=== PATIENT | male | born 1955 | race Caucasian/White ===

== ENCOUNTER 2019-01-03 13:29 | Inpatient (IN) | payer BC ==
[~2019-01-03] VITALS: Ht 180.3 cm; Wt 81.8 kg
[~2019-01-03 13:29] MED LIST: DILAUDID4 MG PO; GEMFIBROZIL600 MG PO; PRAVACHOL20 MG PO; ZESTRIL20 MG PO
[2019-01-03 14:09] LABS: BASOPHILS 0.5 % (0-2); EOSINOPHILS 1.9 % (0-7); HEMATOCRIT 43.5 % (42.0-54.0); HEMOGLOBIN 14.7 g/dL (13.5-17.5); IMMATURE GRANULOCYTES 0.8 % (0-5); LYMPHOCYTES 22.5 % (15-50); MCH 28.8 pg (26.0-34.0); MCHC 33.8 g/dL (31.0-37.0); MCV 85.1 fL (80.0-100.0); MEAN PLATELET VOLUME 10.1 fL (7.4-10.4); MONOCYTES 14.1 % (2-11); NEUTROPHILS 60.2 % (40-80); PLATELET COUNT 324 10x3/uL (130-400); RBC 5.11 10x6/uL (4.20-6.10); RDW 13.2 % (11.5-14.5); WBC 12.6 10x3/uL (4.8-10.8)
[2019-01-03 14:20] LABS: APTT 28.5 SECONDS (22.8-39.4); INR 0.99 (0.85-1.17); PROTIME 12.6 SECONDS (11.6-15.0)
[2019-01-03 14:23] LABS: ALBUMIN 3.2 g/dL (3.4-5.0); ALKALINE PHOSPHATASE 79 U/L (46-116); ALT (SGPT) 32 U/L (10-68); BILIRUBIN - TOTAL 0.26 mg/dL (0.2-1.3); CALC OSMOLALITY 278 mosm/kg (275-300); CALCIUM 9.3 mg/dL (8.5-10.1); CARBON DIOXIDE 28.6 mmol/L (21.0-32.0); CHLORIDE - SERUM 103 mmol/L (98-107); CREATININE - SERUM 0.9 mg/dL (0.6-1.3); GLUCOSE 111 mg/dL (74-106); POTASSIUM - SERUM 3.8 mmol/L (3.5-5.1); SODIUM 140 mmol/L (136-145); UREA NITROGEN 9 mg/dL (7-18); eGFR NON AFRICAN AMERICAN > 90 mL/min (90-120)
[2019-01-03 14:34] LABS: CKMB 0.7 U/L (0.0-3.6); CREATINE KINASE 70 UL (21-232); MAGNESIUM - SERUM 2.1 mg/dL (1.8-2.4)
[2019-01-03 14:35] LABS: TROPONIN-I < 0.017 ng/mL (0.000-0.060)
--- NOTE | 2019-01-03 18:49 | NUR ---
RECEIVED TO ROOM 2212 VIA FROM ER. A/O X3. NO C/O PAIN AT THIS TIME. AT BEDSIDE. SKIN INTACT. DENIES NEEDS.
[2019-01-03 21:10] VITALS: BP 135/78; BMI 25.1
[2019-01-03 21:14] VITALS: BP 135/78
[2019-01-03] MEDS ORDERED: LISINOPRIL40 MG PO (21:44)
[2019-01-03] MEDS ORDERED: NIASPAN500 MG PO (21:45)
[2019-01-03] MEDS ORDERED: AREDS PO (22:03)
[2019-01-04 01:15] VITALS: BP 154/74
[2019-01-04 04:55] VITALS: BP 135/77
[2019-01-04 09:38] VITALS: BP 133/77
--- NOTE | 2019-01-04 11:07 | NUR ---
MORNING ASSESSMENT COMPLETE. SEE ASSESSMENT FLOWSSHET FOR FURTHER DETIALS. PT LYING IN BED AAO X4 TO PERSON, PLACE, TIME, AND SITUATION. DENIES NEEDS AT THIS TIME. CL IN REACH. SIDE RAILS UP X3 FOR PT SAFETY. BED IN LOWEST POSITION.
[2019-01-04 11:47] VITALS: Ht 180.3 cm; Wt 81.8 kg
[2019-01-04 13:55] VITALS: BP 126/84
[2019-01-04 17:34] VITALS: BP 139/78
--- NOTE | 2019-01-04 19:30 | NUR ---
ALERT AND ORIENTED. AT BEDSIDE. DOES NOT COMPLAIN OF PAIN OR SHORTNESS OF BREATH. DISCUSSED UPCOMING MEDICATIONS WITH PATIENT. DENIES QUESTIONS OR CONCERNS. PATIENT HAS RIGHT AC THAT IS PATENT AND INFUSING NS @ 125. WEARING TELE MONITOR AND RUNNING SINUS RHYTHM. HAS CALL LIGHT IN HAND.
[2019-01-04 20:00] VITALS: BP 144/86
[2019-01-05 01:08] VITALS: BP 120/68
--- NOTE | 2019-01-05 03:00 | NUR ---
I have reviewed this patient and I concur with the Shift Assessment completed by the Licensed Practical Nurse today this shift.
[2019-01-05 05:21] VITALS: BP 130/86
[2019-01-05 07:09] LABS: BASOPHILS 0.5 % (0-2); EOSINOPHILS 1.6 % (0-7); HEMATOCRIT 41.3 % (42.0-54.0); HEMOGLOBIN 13.7 g/dL (13.5-17.5); IMMATURE GRANULOCYTES 0.5 % (0-5); LYMPHOCYTES 23.7 % (15-50); MCH 28.2 pg (26.0-34.0); MCHC 33.2 g/dL (31.0-37.0); MCV 85.2 fL (80.0-100.0); MEAN PLATELET VOLUME 10.2 fL (7.4-10.4); MONOCYTES 14.6 % (2-11); NEUTROPHILS 59.1 % (40-80); PLATELET COUNT 309 10x3/uL (130-400); RBC 4.85 10x6/uL (4.20-6.10); RDW 13.1 % (11.5-14.5); WBC 12.3 10x3/uL (4.8-10.8)
[2019-01-05 07:11] LABS: CALC OSMOLALITY 276 mosm/kg (275-300); CALCIUM 8.7 mg/dL (8.5-10.1); CARBON DIOXIDE 27.2 mmol/L (21.0-32.0); CHLORIDE - SERUM 106 mmol/L (98-107); CREATININE - SERUM 0.8 mg/dL (0.6-1.3); GLUCOSE 107 mg/dL (74-106); PHOSPHOROUS 2.7 mg/dL (2.5-4.9); POTASSIUM - SERUM 4.2 mmol/L (3.5-5.1); SODIUM 140 mmol/L (136-145); eGFR NON AFRICAN AMERICAN > 90 mL/min (90-120)
[2019-01-05 07:14] LABS: UREA NITROGEN 6 mg/dL (7-18)
--- NOTE | 2019-01-05 07:30 | NUR ---
LYING IN BED,WITHOUT DISTRESS.DENIES NEEDS.CALL LIGHT IN REACH
[2019-01-05] MEDS ORDERED: ELIQUIS5 MG PO ×2 (09:25→09:32)
[2019-01-05 10:30] VITALS: BP 131/90
--- NOTE | 2019-01-05 11:00 | NUR ---
ASSESSMENT PER FLOW SHEET. IV DCD WITH CATH TIP INTACT.DISCHARGE INSTRUCTIONS,STATES UNDERSTANDING.
--- NOTE | 2019-01-05 11:07 | MORECARE ---
CASE MANAGEMENT DISCHARGE SUMMARY PATIENT: KRISTINE ERNANDEZ UNIT: [id number] ADM DATE: 01/03/19 AGE: 63 : 59 SEX: M ROOM/BED: D.2212 AUTHOR: LUBNA,DOC PHYSICIAN: REFERRING PHYSICIAN: TEODORO HIDALGO MD DATE OF SERVICE: 01/05/19 Discharge Plan Patient Name: KRISTINE ERNANDEZ Facility: [facility]:[place] : 1955 Planned Disposition: Home Anticipated Discharge Date: Discharge Date: Expected LOS: Initial Reviewer: [email or web address] Initial Review Date: 01/03/2019 Generated: 01/05/19 12:07 pm Comments DCP- Discharge Planning Updated by [email or web address]: Emi Vides on 01/05/19 10:[address] Patient Name: KRISTINE ERNANDEZ Admission Status: ER Accout number: [id number] Admission Date: 01-03-2019 : 1955 Admission Diagnosis: Attending: TEODORO HIDALGO Current LOS: 2 Anticipated DC Date: Planned Disposition: Home Primary Insurance: [employer] OUT OF STATE Discharge Planning Comments: CM met with patient to complete initial dc planning assessment. CM educated patient on the CM role and verbal consent given by patient to complete assessment. Patient lives at home with his where he is independent with his care. At discharge patient plans to return home and feels this is a safe discharge. CM discussed availability of home health, rehab services, and medical equipment. I have given him a coupon for Eliquis and explained to him how it is used. 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 Patient denied known discharge needs at this time. CM will continue to follow and will assist as needed with dc plans/needs. Claims Sorter: Emi Vides DCPIA - Discharge Planning Initial Assessment Updated by [email or web address]: Emi Vides on 01/05/19 11:02 am * Is the patient Alert and Oriented? Yes * How many steps to enter\exit or inside your home? * PCP ALMONTE * Pharmacy [facility] * Preadmission Environment Home with Family * ADLs Independent * Equipment None * List name and contact numbers for known caregivers / representatives who currently or will assist patient after discharge: VANESSA ERNANDEZ [phone] * Verbal permission to speak to the caregivers and representatives has been obtained from the patient. N/A * Community resources currently utilized None * Additional services required to return to the preadmission environment? No * Can the patient safely return to the preadmission environment? Yes * Has this patient been hospitalized within the prior 30 days at any hospital? No Patient Name: KRISTINE ERNANDEZ Page 59974 at 1107 All edits/amendments must be made on the electronic document DICTATION DATE: 01/05/191106 CHANGE LEAD: KARI 01/05/191106 RPT#: [id number] DC DATE: STATUS: ADM IN [facility] [address] [place] [address] END OF REPORT
--- NOTE | 2019-01-05 12:21 | NUR ---
LEFT UNIT VIA WHEELCHAIR FOR TRANSPORT HOME
--- NOTE | 2019-01-08 08:46 | MORECARE ---
CASE MANAGEMENT DISCHARGE SUMMARY PATIENT: KRISTINE ERNANDEZ UNIT: [id number] ADM DATE: 01/03/19 AGE: 63 : 59 SEX: M ROOM/BED: D.2212 AUTHOR: LUBNA,DOC PHYSICIAN: REFERRING PHYSICIAN: TEODORO HIDALGO MD DATE OF SERVICE: 01/08/19 Discharge Plan Patient Name: KRISTINE ERNANDEZ Facility: [facility]:[place] : 1955 Planned Disposition: Home Anticipated Discharge Date: Discharge Date: 01/05/2019 Expected LOS: Initial Reviewer: [email or web address] Initial Review Date: 01/03/2019 Generated: 01/08/19 9:45 am Comments DCP- Discharge Planning Updated by [email or web address]: Emi Vides on 01/05/19 10:[address] Patient Name: KRISTINE ERNANDEZ Admission Status: ER Accout number: [id number] Admission Date: 01-03-2019 : 1955 Admission Diagnosis: Attending: TEODORO HIDALGO Current LOS: 2 Anticipated DC Date: Planned Disposition: Home Primary Insurance: [employer] OUT OF STATE Discharge Planning Comments: CM met with patient to complete initial dc planning assessment. CM educated patient on the CM role and verbal consent given by patient to complete assessment. Patient lives at home with his where he is independent with his care. At discharge patient plans to return home and feels this is a safe discharge. CM discussed availability of home health, rehab services, and medical equipment. I have given him a coupon for Eliquis and explained to him how it is used. 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 Patient denied known discharge needs at this time. CM will continue to follow and will assist as needed with dc plans/needs. Branch Associate Teller: Emi Vides DCPIA - Discharge Planning Initial Assessment Updated by [email or web address]: Emi Vides on 01/05/19 11:02 am * Is the patient Alert and Oriented? Yes * How many steps to enter\exit or inside your home? * PCP ALMONTE * Pharmacy [facility] * Preadmission Environment Home with Family * ADLs Independent * Equipment None * List name and contact numbers for known caregivers / representatives who currently or will assist patient after discharge: VANESSA ERNANDEZ [phone] * Verbal permission to speak to the caregivers and representatives has been obtained from the patient. N/A * Community resources currently utilized None * Additional services required to return to the preadmission environment? No * Can the patient safely return to the preadmission environment? Yes * Has this patient been hospitalized within the prior 30 days at any hospital? No Last DP export: 01/05/19 10:07 a Patient Name: KRISTINE ERNANDEZ Page [phone] at 0846 All edits/amendments must be made on the electronic document DICTATION DATE: 01/08/19844 WASHING MACHINE LOADER AND PULLER: KARI 01/08/19844 RPT#: [id number] DC DATE:01/05/19 STATUS: DIS IN [facility] [address] [place] [address] END OF REPORT
== END 2019-01-05 12:21 | disposition home health service (06) | DRG 176 ==
LOC: D.ER 13:29 → D.MS 17:50
PROVIDERS: Family Medicine; ADMIT Internal Medicine Nephrology; ATTEND Internal Medicine Nephrology
DX: I26.99 Other pulmonary embolism without acute cor pulmonale (principal); I82.401 Acute embolism and thrombosis of unspecified deep veins of right lower extremity; J98.11 Atelectasis; I10 Essential (primary) hypertension; E78.5 Hyperlipidemia, unspecified; K21.9 Gastro-esophageal reflux disease without esophagitis

== ENCOUNTER 2019-01-27 20:21 | Inpatient (IN) | payer BC ==
[~2019-01-27] VITALS: Ht 180.3 cm; Wt 102.1 kg
[~2019-01-27 20:21] MED LIST changes: +AREDS PO; +ELIQUIS5 MG PO; +LISINOPRIL40 MG PO; +NIASPAN500 MG PO
[2019-01-27] MEDS ORDERED: MIRALAX17 GM PO (20:26)
[2019-01-27 20:42] LABS: BASOPHILS 0.5 % (0-2); EOSINOPHILS 1.5 % (0-7); HEMATOCRIT 44.6 % (42.0-54.0); HEMOGLOBIN 14.9 g/dL (13.5-17.5); IMMATURE GRANULOCYTES 0.6 % (0-5); LYMPHOCYTES 25.8 % (15-50); MCH 28.2 pg (26.0-34.0); MCHC 33.4 g/dL (31.0-37.0); MCV 84.5 fL (80.0-100.0); MEAN PLATELET VOLUME 9.8 fL (7.4-10.4); NEUTROPHILS 57.6 % (40-80); PLATELET COUNT 362 10x3/uL (130-400); RBC 5.28 10x6/uL (4.20-6.10); RDW 13.3 % (11.5-14.5); WBC 12.5 10x3/uL (4.8-10.8)
[2019-01-27 21:12] LABS: ALBUMIN 2.9 g/dL (3.4-5.0); ALKALINE PHOSPHATASE 77 U/L (46-116); ALT (SGPT) 20 U/L (10-68); CALC OSMOLALITY 273 mosm/kg (275-300); CARBON DIOXIDE 27.5 mmol/L (21.0-32.0); CHLORIDE - SERUM 101 mmol/L (98-107); GLUCOSE 102 mg/dL (74-106); PROTEIN - SERUM 6.6 g/dL (6.4-8.2); SODIUM 138 mmol/L (136-145); UREA NITROGEN 7 mg/dL (7-18); eGFR NON AFRICAN AMERICAN 81 mL/min (90-120)
[2019-01-27 21:15] LABS: AMYLASE - SERUM 43 U/L (25-115); LIPASE 67 U/L (73-393); TROPONIN-I < 0.017 ng/mL (0.000-0.060)
[2019-01-27 21:41] LABS: APTT 27.8 SECONDS (22.8-39.4); INR 1.16 (0.85-1.17); PROTIME 14.3 SECONDS (11.6-15.0)
[2019-01-27 21:43] LABS: D-DIMER-QUANTITATIVE 2.43 ug/mLFEU (0.20-0.54)
[2019-01-27 23:11] LABS: APPEARANCE CLEAR (CLEAR); BACTERIA NONE SEEN /hpf (NONE SEEN); BILIRUBIN NEGATIVE (NEGATIVE); COLOR YELLOW (YELLOW); GLUCOSE NEGATIVE (NEGATIVE); KETONE MODERATE mg/dL (NEGATIVE); NITRITE NEGATIVE (NEGATIVE); PROTEIN NEGATIVE (NEGATIVE); RED CELLS - URINE 0-5 /hpf (0-5); SPECIFIC GRAVITY 1.015 (1.005-1.020); UROBILINOGEN NORMAL (NORMAL); WHITE CELLS - URINE 0-5 /hpf (0-5)
[2019-01-27] MEDS ORDERED: OMEPRAZOLE40 MG PO (23:56)
[2019-01-28] VITALS (10 sets, daily range): BP systolic 108–145; BP diastolic 67–89; BMI 31.4
[2019-01-28 06:53] LABS: BASOPHILS 0.5 % (0-2); EOSINOPHILS 2.2 % (0-7); HEMATOCRIT 40.1 % (42.0-54.0); HEMOGLOBIN 13.3 g/dL (13.5-17.5); IMMATURE GRANULOCYTES 0.5 % (0-5); LYMPHOCYTES 21.9 % (15-50); MCH 27.9 pg (26.0-34.0); MCHC 33.2 g/dL (31.0-37.0); MCV 84.2 fL (80.0-100.0); MEAN PLATELET VOLUME 9.8 fL (7.4-10.4); MONOCYTES 14.5 % (2-11); NEUTROPHILS 60.4 % (40-80); RBC 4.76 10x6/uL (4.20-6.10); RDW 13.3 % (11.5-14.5); WBC 9.4 10x3/uL (4.8-10.8)
[2019-01-28 06:56] LABS: PLATELET COUNT 246 10x3/uL (130-400)
[2019-01-28 07:29] LABS: ALBUMIN 2.3 g/dL (3.4-5.0); ALKALINE PHOSPHATASE 65 U/L (46-116); ALT (SGPT) 16 U/L (10-68); BILIRUBIN - TOTAL 0.32 mg/dL (0.2-1.3); C-REACTIVE PROTEIN 2.3 mg/dL (0.0-0.9); CALC OSMOLALITY 273 mosm/kg (275-300); CALCIUM 8.4 mg/dL (8.5-10.1); CHLORIDE - SERUM 105 mmol/L (98-107); CREATININE - SERUM 0.9 mg/dL (0.6-1.3); GLUCOSE 101 mg/dL (74-106); LIPASE 52 U/L (73-393); POTASSIUM - SERUM 4.1 mmol/L (3.5-5.1); PRO BNP 16 pg/mL (0-125); PROTEIN - SERUM 5.5 g/dL (6.4-8.2); SODIUM 138 mmol/L (136-145); UREA NITROGEN 6 mg/dL (7-18); eGFR NON AFRICAN AMERICAN > 90 mL/min (90-120)
--- NOTE | 2019-01-28 08:14 | NUR ---
NOTIFIED BY MARTINEZ FROM XRAY THAT PT MIGHT OR MIGHT NOT BE HAVING A PROCEDURE TODAY, BUT IF HE DID THAT IT WOULD BE AFTER 12. MARTINEZ WILL CALL IF RADIOLOGIST DECIDES NOT TO DO PROCEDURE TODAY.
--- NOTE | 2019-01-28 08:46 | NUR ---
RECEIVED CALL FROM DR. RANGEL FROM RADIOLOGY AND HE STATED THAT THE CT DID NOT SHOW A PANCREATIC MASS. FULL REPORT WAS GOING TO BE ON HIS REPORT ALONG WITH HIS RECOMENDATIONS.
[2019-01-28 10:53] LABS: APTT 28.1 SECONDS (22.8-39.4); INR 1.18 (0.85-1.17); PROTIME 14.5 SECONDS (11.6-15.0)
--- NOTE | 2019-01-28 11:48 | NUR ---
PT TRANSFERED TO RADIOLOGY VIA BED.
--- NOTE | 2019-01-28 13:36 | NUR ---
RECEIVED PT TO ROOM 1210. PT A/O X4, ABD SOFT NON DISTENDED. VITAL SIGNS STABLE, PLACED ON FREQUENT VITAL SIGNS. DIET ORDERED BY IR NURSE. PT DENIES ANY NEEDS AT THIS TIME. CALL LIGHT IN REACH, NAD NOTED, WILL CONTINUE TO MONITOR.
[2019-01-28 13:58] LABS: PROTEIN - BODY FLUID 5.1 G/DL
[2019-01-28 15:39] LABS: MACROPHAGES BF 31 %; MESOTHELIALS BF 4 %; NEUT - BF 4 %
--- NOTE | 2019-01-28 16:28 | NUR ---
PER DR. GWEN BOYLE CONSULT FOR DR. KIM.
--- NOTE | 2019-01-28 19:32 | NUR ---
PATIENT RESTING IN BED WITH AT BEDSIDE AND DENIES NEEDS AT THIS TIME. BED IN LOWEST POSITION AND CALL LIGHT WITHIN REACH. ENCOURAGED THE PATIENT TO CALL IF HE HAS NEEDS. WILL CONTINUE TO MONITOR.
--- NOTE | 2019-01-28 19:35 | NUR ---
CALLED DR. HIDALGO AND ASKED HIM IF PT'S HOME MEDS CAN BE STARTED. PER DR. HIDALGO OK TO START HOME MEDICATIONS.
[2019-01-29] VITALS (7 sets, daily range): BP systolic 118–138; BP diastolic 72–84; BMI 31.3
[2019-01-29 06:31] LABS: BASOPHILS 0.3 % (0-2); EOSINOPHILS 1.6 % (0-7); HEMATOCRIT 37.3 % (42.0-54.0); HEMOGLOBIN 12.3 g/dL (13.5-17.5); IMMATURE GRANULOCYTES 0.4 % (0-5); LYMPHOCYTES 20.3 % (15-50); MCH 27.5 pg (26.0-34.0); MCV 83.3 fL (80.0-100.0); MEAN PLATELET VOLUME 10.4 fL (7.4-10.4); MONOCYTES 15.7 % (2-11); NEUTROPHILS 61.7 % (40-80); PLATELET COUNT 277 10x3/uL (130-400); RBC 4.48 10x6/uL (4.20-6.10); RDW 13.1 % (11.5-14.5); WBC 9.2 10x3/uL (4.8-10.8)
[2019-01-29 06:50] LABS: ALBUMIN 2.4 g/dL (3.4-5.0); ALKALINE PHOSPHATASE 50 U/L (46-116); ALT (SGPT) 12 U/L (10-68); BILIRUBIN - TOTAL 0.57 mg/dL (0.2-1.3); CALCIUM 8.2 mg/dL (8.5-10.1); CHLORIDE - SERUM 107 mmol/L (98-107); CREATININE - SERUM 0.7 mg/dL (0.6-1.3); GLUCOSE 108 mg/dL (74-106); POTASSIUM - SERUM 3.8 mmol/L (3.5-5.1); PROTEIN - SERUM 5.1 g/dL (6.4-8.2); SODIUM 142 mmol/L (136-145); eGFR NON AFRICAN AMERICAN > 90 mL/min (90-120)
[2019-01-29 06:52] LABS: CALC OSMOLALITY 280 mosm/kg (275-300); UREA NITROGEN 4 mg/dL (7-18)
--- NOTE | 2019-01-29 07:49 | NUR ---
ROUNDING DONE WITH PATIENT SITTING UP IN BED ON CELL PHONE. GLASSES ON. RIGHT AC PIV SEEN WITH NS INFUSING AT 75 CC/HR. ON HEART MONITOR SHOWING ST, HR 102. ON ROOM AIR. K+ IS 3.8. DENIES NEEDS EXCEPT NOT WANTING TO WEAR HEART MONITOR.
--- NOTE | 2019-01-29 08:11 | NUR ---
IN CHAIR AT THIS TIME. REFUSES NICOTINE PATCH. AM MEDS GIVEN.
--- NOTE | 2019-01-29 09:13 | NUR ---
PATIENT OUT OF THE SHOWER, COMPLETE BED LINEN CHANGE DONE. PATIENT DOES NOT WANT TO WEAR THE HEART MONITOR OR BE HOOKED TO IV FLUIDS AT THIS TIME.
--- NOTE | 2019-01-29 12:05 | MORECARE ---
CASE MANAGEMENT DISCHARGE SUMMARY PATIENT: KRISTINE ERNANDEZ UNIT: [id number] ADM DATE: 01/27/19 AGE: 63 : 59 SEX: M ROOM/BED: D.1210 AUTHOR: DEEPALI CALVO PHYSICIAN: REFERRING PHYSICIAN: IVONNE ALMONTE MD DATE OF SERVICE: 01/29/19 Discharge Plan Patient Name: KRISTINE ERNANDEZ Facility: [facility]:[place] : 1955 Planned Disposition: Home Anticipated Discharge Date: Discharge Date: Expected LOS: Initial Reviewer: [email or web address] Initial Review Date: 01/28/2019 Generated: 01/29/19 1:04 pm Patient Name: KRISTINE ERNANDEZ Page [phone] at 1205 All edits/amendments must be made on the electronic document DICTATION DATE: 01/29/19 120 CLOUD SYSTEMS ADMINISTRATOR: KARI 01/29/19 1204 RPT#: [id number] DC DATE: STATUS: ADM IN [facility] [address] [place] [address] END OF REPORT
--- NOTE | 2019-01-29 12:13 | MORECARE ---
CASE MANAGEMENT DISCHARGE SUMMARY PATIENT: KRISTINE ERNANDEZ UNIT: [id number] ADM DATE: 01/27/19 AGE: 63 : 59 SEX: M ROOM/BED: D.1210 AUTHOR: DEEPALI CALVO PHYSICIAN: REFERRING PHYSICIAN: IVONNE ALMONTE MD DATE OF SERVICE: 01/29/19 Discharge Plan Patient Name: KRISTINE ERNANDEZ Facility: [facility]:[place] : 1955 Planned Disposition: Home Anticipated Discharge Date: Discharge Date: Expected LOS: Initial Reviewer: [email or web address] Initial Review Date: 01/28/2019 Generated: 01/29/19 1:13 pm Comments DCP- Discharge Planning Updated by [email or web address]: Anitha Spring on 01/29/19 11:[address] Patient Name: KRISTINE ERNANDEZ Admission Status: ER Accout number: [id number] Admission Date: 01-27-2019 : 1955 Admission Diagnosis: Attending: IVONNE ALMONTE Current LOS: 2 Anticipated DC Date: Planned Disposition: Home Primary Insurance: [employer] OUT OF STATE Discharge Planning Comments: CM MEET WITH PT AFTER GETTING VERBAL CONSENT TO CONTINUE WITH INITAL ASSESSMENT AND DISCHARGE NEEDS. CM EDUCATED ON ROLE OF CM AND THE SERVICES AVALIABLE SUCH HH, REHAB AND DME SERVICES. PT LIVES AT HOME WITH FAMILY STATES HOME IS A SAFE DC PLAN. DENIES ANY CM NEEDS. CM WILL CONTINUE TO FOLLOW. Staff Nurse: Anitha Spring DCPIA - Discharge Planning Initial Assessment Updated by [email or web address]: Anitha Spring on 01/29/19 12:09 pm * Is the patient Alert and Oriented? Yes * How many steps to enter\exit or inside your home? * PCP nita * Pharmacy [facility] * Preadmission Environment Home with Family * ADLs Independent * Verbal permission to speak to the caregivers and representatives has been obtained from the patient. Yes * Additional services required to return to the preadmission environment? No * Can the patient safely return to the preadmission environment? Yes * Has this patient been hospitalized within the prior 30 days at any hospital? No Last DP export: 01/29/19 11:05 a Patient Name: KRISTINE ERNANDEZ Page [phone] at 1213 All edits/amendments must be made on the electronic document DICTATION DATE: 01/29/191212 CORDWOOD CUTTER HELPER: KARI 01/29/191212 RPT#: [id number] DC DATE: STATUS: ADM IN [facility] [address] [place] [address] END OF REPORT
--- NOTE | 2019-01-29 12:53 | NUR ---
UP IN [facility] EATING LUNCH. DENIES NEEDS AT THIS TIME. HAS HAD LOTS OF VISTIORS TODAY. AWAITING WORD FOR POSSIBLE DISCHARGE TODAY.
--- NOTE | 2019-01-29 14:04 | NUR ---
DR HIDALGO IN TO SEE PATIENT.
--- NOTE | 2019-01-29 14:51 | NUR ---
PAGE INTO DR RAMOS R/T HOLDING ELIQUIS FOR SURGERY. PER DR RAMOS, DO NOT HOLD OR STOP THE ELIQUIS.
--- NOTE | 2019-01-29 15:26 | NUR ---
UP AMBULATING IN HALLWAY. DENIES NEEDS.
--- NOTE | 2019-01-29 17:36 | NUR ---
AT BEDSIDE. DENIES NEEDS AT THIS TIME.
--- NOTE | 2019-01-29 19:26 | NUR ---
PATIENT RESTING IN BED WITH AT BEDSIDE. PATIENT DENIES NEEDS AT THIS TIME. BED IN LOWEST POSITION AND CALL LIGHT WITHIN REACH. ENCOURAGED THE PATIENT TO CALL IF HE HAS NEEDS. WILL CONTINUE TO MONITOR.
[2019-01-30 04:00] VITALS: BP 128/84
--- NOTE | 2019-01-30 07:02 | NUR ---
SITTING UP IN BED, RIGHT AC SALINE LOCK, NO S/S OF ANY DISTRESS. DENIES PAIN AT THIS TIME. WILL NOTE ANY CHANGE.
[2019-01-30 07:20] LABS: BASOPHILS 0.4 % (0-2); HEMATOCRIT 37.8 % (42.0-54.0); HEMOGLOBIN 12.8 g/dL (13.5-17.5); IMMATURE GRANULOCYTES 0.3 % (0-5); MCH 28.1 pg (26.0-34.0); MCHC 33.9 g/dL (31.0-37.0); MCV 83.1 fL (80.0-100.0); MEAN PLATELET VOLUME 10.3 fL (7.4-10.4); MONOCYTES 16.1 % (2-11); NEUTROPHILS 61.2 % (40-80); PLATELET COUNT 266 10x3/uL (130-400); RBC 4.55 10x6/uL (4.20-6.10); RDW 12.9 % (11.5-14.5); WBC 10.2 10x3/uL (4.8-10.8)
[2019-01-30 07:37] VITALS: BP 140/92
[2019-01-30 07:40] LABS: ALBUMIN 2.4 g/dL (3.4-5.0); ALKALINE PHOSPHATASE 58 U/L (46-116); ALT (SGPT) 14 U/L (10-68); BILIRUBIN - TOTAL 0.41 mg/dL (0.2-1.3); CALC OSMOLALITY 275 mosm/kg (275-300); CALCIUM 8.3 mg/dL (8.5-10.1); CARBON DIOXIDE 27.9 mmol/L (21.0-32.0); CHLORIDE - SERUM 106 mmol/L (98-107); CREATININE - SERUM 0.8 mg/dL (0.6-1.3); GLUCOSE 105 mg/dL (74-106); POTASSIUM - SERUM 3.4 mmol/L (3.5-5.1); PROTEIN - SERUM 5.3 g/dL (6.4-8.2); SODIUM 140 mmol/L (136-145); UREA NITROGEN 3 mg/dL (7-18); eGFR NON AFRICAN AMERICAN > 90 mL/min (90-120)
--- NOTE | 2019-01-30 09:56 | NUR ---
I CALLED TO [facility] TO SPEAK TO DR RAMOS NURSE FOR TIME TO BE AT OUTPATIENT AREA FOR SURGERY IN AM. ALSO, TO VERIFY OF HOLDING THE ELIQUIS OR NOT (WAS TOLD YESTERDAY TO NOT STOP THE MEDICATION). NURSE IS TO CALL ME BACK.
[2019-01-30 10:11] LABS: ALPHA FETOPROTEIN -(TUMOR MRK) 2.9 ng/mL (0.0-8.3); CEA 1.1 ng/mL (0.0-4.7)
[2019-01-30 11:30] VITALS: BP 143/86
--- NOTE | 2019-01-30 11:39 | NUR ---
I CALLED [facility] AGAIN I HAVE NOT HEARD ANYTHING FROM THEM. I WAS TOLD FROM RENEA THAT THE NURSE WILL CALL ME BACK.
--- NOTE | 2019-01-30 11:46 | NUR ---
ROSALEE FROM DR RAMOS OFFICE TO CALL AND AGAIN TELL ME TO TELL PATIENT TO NOT STOP THE ELIQUIS. SURGERY IS SET FOR TOMORROW AT 1215. TO BE HERE 2 1/2 HRS. EARLY AND NPO PAST MIDNIGHT.
[2019-01-30] MEDS ORDERED: ELIQUIS5 MG PO (12:04)
--- NOTE | 2019-01-30 13:05 | MORECARE ---
CASE MANAGEMENT DISCHARGE SUMMARY PATIENT: KRISTINE ERNANDEZ UNIT: [id number] ADM DATE: 01/27/19 AGE: 63 : 59 SEX: M ROOM/BED: D.1210 AUTHOR: LUBNA,DOC PHYSICIAN: REFERRING PHYSICIAN: IVONNE ALMONTE MD DATE OF SERVICE: 01/30/19 Discharge Plan Patient Name: KRISTINE ERNANDEZ Facility: [facility]:[place] : 1955 Planned Disposition: Home Anticipated Discharge Date: Discharge Date: 01/30/2019 Expected LOS: Initial Reviewer: [email or web address] Initial Review Date: 01/28/2019 Generated: 01/30/19 2:05 pm Comments DCP- Discharge Planning Updated by [email or web address]: Anitha Spring on 01/29/19 11:[address] Patient Name: KRISTINE ERNANDEZ Admission Status: ER Accout number: [id number] Admission Date: 01-27-2019 : 1955 Admission Diagnosis: Attending: IVONNE ALMONTE Current LOS: 2 Anticipated DC Date: Planned Disposition: Home Primary Insurance: [employer] OUT OF STATE Discharge Planning Comments: CM MEET WITH PT AFTER GETTING VERBAL CONSENT TO CONTINUE WITH INITAL ASSESSMENT AND DISCHARGE NEEDS. CM EDUCATED ON ROLE OF CM AND THE SERVICES AVALIABLE SUCH HH, REHAB AND DME SERVICES. PT LIVES AT HOME WITH FAMILY STATES HOME IS A SAFE DC PLAN. DENIES ANY CM NEEDS. CM WILL CONTINUE TO FOLLOW. Hand Endband Cutter: Anitha Spring DCPIA - Discharge Planning Initial Assessment Updated by [email or web address]: Anitha Spring on 01/29/19 12:09 pm * Is the patient Alert and Oriented? Yes * How many steps to enter\exit or inside your home? * PCP nita * Pharmacy [facility] * Preadmission Environment Home with Family * ADLs Independent * Verbal permission to speak to the caregivers and representatives has been obtained from the patient. Yes * Additional services required to return to the preadmission environment? No * Can the patient safely return to the preadmission environment? Yes * Has this patient been hospitalized within the prior 30 days at any hospital? No Last DP export: 01/29/19 11:13 a Patient Name: KRISTINE ERNANDEZ Page [phone] at 1305 All edits/amendments must be made on the electronic document DICTATION DATE: 01/30/19 130 TRAVELING SALES EXECUTIVE: KARI 01/30/19 1304 RPT#: [id number] DC DATE:01/30/19 STATUS: DIS IN [facility] [address] [place] [address] END OF REPORT
[2019-01-30 15:51] VITALS: Ht 180.3 cm; Wt 102.1 kg
[2019-01-31] MEDS ORDERED: HYDROCODON-ACE1 EAC7 PO (14:57)
== END 2019-01-30 12:53 | disposition home or self-care (01) | DRG 374 ==
LOC: D.ER 20:21 → D.M3 23:06
PROVIDERS: Family Medicine; Family Medicine Adult Medicine; General Practice; Internal Medicine Hematology & Oncology; Internal Medicine Nephrology; ADMIT Family Medicine; ATTEND Family Medicine
PROC: 0W9G3ZZ Drainage of Peritoneal Cavity, Percutaneous Approach (ICD-10-PCS; principal; 2019-01-28 12:49)
DX: C78.6 Secondary malignant neoplasm of retroperitoneum and peritoneum (principal); I26.99 Other pulmonary embolism without acute cor pulmonale; R18.0 Malignant ascites; I82.401 Acute embolism and thrombosis of unspecified deep veins of right lower extremity; E44.0 Moderate protein-calorie malnutrition; F17.213 Nicotine dependence, cigarettes, with withdrawal; D64.9 Anemia, unspecified; I10 Essential (primary) hypertension; E78.5 Hyperlipidemia, unspecified; K21.9 Gastro-esophageal reflux disease without esophagitis; Z68.31 Body mass index [BMI] 31.0-31.9, adult; C78.89 Secondary malignant neoplasm of other digestive organs

== ENCOUNTER 2019-01-31 10:23 | Day surgery (SDC) | payer BC ==
[~2019-01-31] VITALS: Ht 180.3 cm; Wt 102.1 kg
[~2019-01-31 10:23] MED LIST changes: +MIRALAX17 GM PO; +OMEPRAZOLE40 MG PO
[2019-01-31 11:49] VITALS: BP 122/77; Ht 180.3 cm; Wt 102.1 kg
[2019-01-31] MEDS ORDERED: HYDROCODON-ACE1 EAC7 PO (14:57)
--- NOTE | 2019-01-31 15:52 | NUR ---
1550 FL DIET SERVED
== END 2019-01-31 17:15 | disposition home or self-care (01) ==
LOC: D.OPS 10:23
PROVIDERS: ATTEND Surgery
DX: R18.0 Malignant ascites (principal); Z01.812 Encounter for preprocedural laboratory examination

== ENCOUNTER → 2019-02-08 12:05 | Outpatient (CLI) | payer BC ==
[2019-01-31 11:49] VITALS: BMI 31.4
[~2019-02-08 12:05] MED LIST changes: +ATIVAN1 MG PO; +DILAUDID2 MG PO; +HYDROCODON-ACE1 EAC7 PO
== END | disposition home or self-care (01) ==
LOC: D.MRI 12:05
PROVIDERS: ATTEND Internal Medicine Hematology & Oncology
DX: C25.2 Malignant neoplasm of tail of pancreas (principal)

== ENCOUNTER 2019-02-14 06:54 | Outpatient (CLI) | payer BC ==
[~2019-02-14] VITALS: Ht 180.3 cm; Wt 100.0 kg
[~2019-02-14 06:54] MED LIST changes: -ATIVAN1 MG PO; -DILAUDID2 MG PO
[2019-02-14] MEDS ORDERED: ATIVAN1 MG PO (07:36)
[2019-02-14] MEDS ORDERED: DILAUDID2 MG PO (07:38)
[2019-02-14 07:39] LABS: ANION GAP 12.8 mmol/L (8-16); CARBON DIOXIDE 26.3 mmol/L (21.0-32.0); CREATININE - SERUM 1.3 mg/dL (0.6-1.3); POTASSIUM - SERUM 4.1 mmol/L (3.5-5.1)
[2019-02-14 07:46] LABS: BASOPHILS 0.5 % (0-2); EOSINOPHILS 2.7 % (0-7); HEMATOCRIT 42.7 % (42.0-54.0); HEMOGLOBIN 14.2 g/dL (13.5-17.5); IMMATURE GRANULOCYTES 0.9 % (0-5); LYMPHOCYTES 18.1 % (15-50); MCH 27.4 pg (26.0-34.0); MCHC 33.3 g/dL (31.0-37.0); MCV 82.4 fL (80.0-100.0); MONOCYTES 14.4 % (2-11); NEUTROPHILS 63.4 % (40-80); RBC 5.18 10x6/uL (4.20-6.10); RDW 13.5 % (11.5-14.5); WBC 12.7 10x3/uL (4.8-10.8)
[2019-02-14 07:47] VITALS: Ht 180.3 cm; Wt 100.0 kg
[2019-02-14 07:50] LABS: INR 1.39 (0.85-1.17); PROTIME 16.5 SECONDS (11.6-15.0)
[2019-02-14 07:53] LABS: PLATELET COUNT 333 10x3/uL (130-400)
--- NOTE | 2019-02-14 10:33 | NUR ---
SEE FREQUENT VS FLOWSHEET FOR VS.
--- NOTE | 2019-02-14 11:12 | NUR ---
ALL DC INSTRUCTIONS GIVEN. VOICES UNDERSTANDING. TAKEN OUT VIA WC AND DC'D HOME AT 1105. ADVISED TO CALL OR COME BACK IF ANY PROBLEMS.
== END 2019-02-14 11:05 | disposition home or self-care (01) ==
LOC: D.CT 06:54
PROVIDERS: Radiology Diagnostic Radiology; ATTEND Internal Medicine Hematology & Oncology
DX: R18.8 Other ascites (principal)

== ENCOUNTER 2019-02-20 08:04 | Day surgery (SDC) | payer BC ==
[~2019-02-20] VITALS: Ht 180.3 cm; Wt 91.6 kg
[~2019-02-20 08:04] MED LIST changes: +ATIVAN1 MG PO; +DILAUDID2 MG PO
[2019-02-20 08:19] LABS: BASOPHILS 0.4 % (0-2); EOSINOPHILS 1.7 % (0-7); HEMATOCRIT 44.1 % (42.0-54.0); HEMOGLOBIN 14.8 g/dL (13.5-17.5); IMMATURE GRANULOCYTES 0.7 % (0-5); LYMPHOCYTES 18.7 % (15-50); MCH 27.7 pg (26.0-34.0); MCHC 33.6 g/dL (31.0-37.0); MCV 82.6 fL (80.0-100.0); MEAN PLATELET VOLUME 9.9 fL (7.4-10.4); MONOCYTES 11.6 % (2-11); NEUTROPHILS 66.9 % (40-80); PLATELET COUNT 282 10x3/uL (130-400); RBC 5.34 10x6/uL (4.20-6.10); RDW 13.5 % (11.5-14.5); WBC 13.8 10x3/uL (4.8-10.8)
[2019-02-20 08:38] VITALS: BP 120/62; Ht 180.3 cm; Wt 91.6 kg
[2019-02-20 08:44] LABS: ALBUMIN 2.5 g/dL (3.4-5.0); ANION GAP 9.8 mmol/L (8-16); BILIRUBIN - TOTAL 0.4 mg/dL (0.2-1.3); CALCIUM 9.3 mg/dL (8.5-10.1); CARBON DIOXIDE 29.9 mmol/L (21.0-32.0); CREATININE - SERUM 1.5 mg/dL (0.6-1.3); POTASSIUM - SERUM 4.7 mmol/L (3.5-5.1); PROTEIN - SERUM 6.8 g/dL (6.4-8.2)
[2019-02-20 08:50] LABS: APTT 27.2 SECONDS (22.8-39.4); INR 1.31 (0.85-1.17); PROTIME 15.7 SECONDS (11.6-15.0)
--- NOTE | 2019-02-20 10:38 | HP ---
PATIENT: KRISTINE ERNANDEZ MEDICAL RECORD: [id number] ACCOUNT: [id number] LOCATION:[place] : [birth year] ADMISSION DATE: 02/20/19 PCP: IVONNE ALMONTE MD HISTORY AND PHYSICAL EXAMINATION CHIEF COMPLAINT: Swelling. HISTORY OF PRESENT ILLNESS: The patient has had ascites. He has pancreatic cancer. He has undergone 2 paracenteses. At one time, 8 liters of fluid was drawn off and another time, 9 liters of fluid was drawn off. He has had DVT with pulmonary thromboemboli and for that reason, I have had his Eliquis continued during this procedure. I am going to plan for a peritoneal dialysis catheter placement, so that the patient can drain at home and would not have to come in and have a paracentesis. The risks, possible complications and alternatives to the procedure were explained to the patient. He elects to proceed. ALLERGIES: ASPIRIN. HOME MEDICATIONS: Please see the nursing list. They include Eliquis. PAST MEDICAL AND SURGICAL HISTORY: Ureteral stones, pancreatic cancer, paracentesis, port placement, hypercholesterolemia, DVT, pulmonary emboli. SOCIAL HISTORY: A special education highway maintainer. Does not smoke, chews tobacco. PHYSICAL EXAMINATION: GENERAL: The patient does not appear acutely ill. He does not appear chronically ill. VITAL SIGNS: Reviewed. EARS: External ears appear normal. EYES: Extraocular movements are intact. NECK: Trachea is midline. CHEST: No intercostal retractions. PULMONARY: Nonlabored, no stridor. ABDOMEN: Nontender. IMPRESSION: Recurrent ascites due to pancreatic cancer. PLAN: Placement of peritoneal dialysis catheter. TRANSINT:[id number] Voice Confirmation ID: [id number] DOCUMENT ID: [id number] HISTORY AND PHYSICAL [id number] KRISTINE ERNANDEZ MINI PARKER MD at 1038 CC: HARIKA SOTO MD, MINI SILVA MD and IVONNE ALMONTE [id number] DICTATION DATE: 02/20/19 1002 EQUIPMENT SERVICE ASSOCIATE: 02/20/19 1022 [facility] [address] [place] [address]
--- NOTE | 2019-02-20 14:20 | NUR ---
PT WAS IN PAIN INCISIONALLY BUT STATES ITS NOW RELIEVED WITH PRN PAIN MEDICATION. PROVIDED PT WITH ICE CHIPS. VSS. NO CURRENT NEEDS. WILL CTM.
--- NOTE | 2019-02-21 12:25 | OP ---
PATIENT NAME: KRISTINE ERNANDEZ MEDICAL RECORD: [id number] :[birth year] LOCATION:D.OPS ADMISSION DATE: SURGEON: EDMUNDO PARKER MD DATE OF OPERATION: 02/20/2019 PREOPERATIVE DIAGNOSIS: Malignant ascites, requiring paracentesis. 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 PROCEDURE: Laparoscopic peritoneal dialysis catheter placement (left-sided swan neck curl cath). SURGEON: Edmundo Parker MD NEW CAR INSPECTOR: None. BLOOD LOSS: Minimal. ANESTHESIA: General. COMPLICATIONS: None. OPERATIVE FINDINGS: Ascites was present. It appeared that there was studding due to carcinomatosis; however, as the patient is currently anticoagulated, I felt that biopsying some of these areas on the peritoneum might cause bleeding, so I did not biopsy them. OPERATIVE COURSE: The patient was conveyed to the operating room electively on 02/20/2019. General anesthesia was induced by the anesthesia staff. The abdomen was sterilely prepped and draped. A small skin bev was accomplished in the left upper quadrant. A Veress needle was inserted through the skin bev into the peritoneal cavity. CO2 insufflation was begun. Once sufficient pneumoperitoneum had been achieved, a 5-mm trocar was inserted through an incision in the left lower quadrant. A transverse incision was accomplished cephalad and medial to this. Through this other incision, an 8-mm trocar was inserted into the peritoneal cavity obliquely. It was aimed caudad and medial. Through this 8-mm trocar, I was able to advance the swan neck curl cath. I was able to visualize this laparoscopically with a 5-mm camera. I then removed the 8-mm trocar. I then placed a tunneling device on the other end of the catheter. I tunneled the catheter out through the 5-mm trocar incision after removing the trocar. I ensured that both cuffs were in subcutaneous tissues. The cephalad incision was closed in 2 layers with interrupted 3-0 Vicryls for the adipose tissue, interrupted intracuticular Vicryl for the skin, and then Dermabond. I then closed the skin around the catheter exit site with an intracuticular 3-0 Vicryl. The catheter was then sutured to the underlying skin with 2-0 nylon. A locking device was placed as well as the catheter cap. Sterile dressings were applied. The patient was then extubated and conveyed to the post-anesthesia care unit. I have given the patient's instructions regarding use of the catheter. I will see the patient on p.r.n. basis. There is no need for him to follow up with me in the office unless he develops complication related to this operative procedure. He is going to be starting chemotherapy soon. OPERATIVE REPORT [id number] KRISTINE ERNANDEZ TRANSINT:[id number] Voice Confirmation ID: [id number] DOCUMENT ID: [id number] EDMUNDO PARKER MD at 1225 CC: [id number] DICTATION DATE: 02/20/19 1457 SQL MANAGER: 02/20/19 1751 [facility] 02/20/[address] [address]
== END 2019-02-20 16:35 | disposition home or self-care (01) ==
LOC: D.OPS 08:04 → D.PAN 10:00 → D.OPS 16:35
PROVIDERS: Anesthesiology; ATTEND Surgery
DX: C25.9 Malignant neoplasm of pancreas, unspecified (principal); R18.0 Malignant ascites

== ENCOUNTER 2019-03-04 11:48 | Inpatient (IN) | payer BC ==
[~2019-03-04] VITALS: Ht 180.3 cm; Wt 86.2 kg
--- NOTE | ~2019-03-04 | HEMODYNAMI ---
PATIENT:KRISTINE ERNANDEZ MEDICAL RECORD: [id number] : 59 [id number] ADMISSION DATE: 03/04/19 Generatedon:03/09/201911:28 Patient name: KRISTINE ERNANDEZ Patient #: [id number] SSN: : 1955 Date of study: 03/09/2019 Page: Of Hemodynamic Procedure Report Patient Data Patient Demographics Procedure consent was obtained First Name: KRISTINE Gender: Male Last Name: AWAIS : 1955 Middle Initial: LILIANA Age: 63 year(s) Patient #: [id number] Race: Unknown Additional ID: [id number] Contact details Address: [address] [place] [address] State: [place] City: [place] Zip code: [address] Past Medical History Allergies Allergen Reaction Date Comments Reported Aspirin 03/09/2019 Admission Admission Data Admission Date: 03/04/2019 Admission Time: 16:40 Room #: D.2207 Height (in.): 71 BSA: 2.06 (m2) Height (cm.): 180.34 BMI: 26.36 (kg/m2) Weight (lbs.): 189 Weight (kg.): 85.73 Procedure Procedure Types Cath Procedure Peripheral Cath Diagnostic Procedure [employer] Peripheral Procedures Venography Extremity Left Upper Ext. Venagram Procedure Description Procedure Date Procedure Date: 03/09/2019 Procedure Start Time: 9:59 Procedure Staff Name Function Baldev Damian MD Performing Physician Ashley Bradshaw RT Absorber Operator Karen Fowler RN Nurse Maty Greenfield RN Nurse Nahum Spangler RT Scrub Procedure Data Cath Procedure Fluoroscopy Diagnostic fluoroscopy Total fluoroscopy Time: time: 14.3 min 14.3 min Diagnostic fluoroscopy Total fluoroscopy dose: dose: 1416 mGy 1416 mGy Contrast Material Contrast Material Type Amount (ml) Isovue 300 110 Procedure Medications Medication Administration Route Dosage Heparin Flush Bag added to field 2 bags (1000units/500ml NS) Lidocaine 1% added to field 20 Versed I.V. 1 mg Fentanyl I.V. 50 mcg Fentanyl I.V. 50 mcg Versed I.V. 1 mg Heparin Bolus I.V. 5000 units Fentanyl I.V. 50 mcg Versed I.V. 1 mg Benadryl I.V. 25 mg TPA 10 Benadryl I.V. 25 mg Versed I.V. 1 mg Fentanyl I.V. 50 mcg Versed I.V. 1 mg Fentanyl I.V. 50 mcg Heparin Bolus I.V. 3000 units Versed I.V. 1 mg Fentanyl I.V. 50 mcg Versed I.V. 1 mg Fentanyl I.V. 50 mcg Hemodynamics Rest BSA: 2.06 (m2) O2 Consumption: Estimated: 248.38 (ml/min) O2 Consumption indexed : Estimated:120.57 (ml/min/m) Heart Rate: 79 (bpm) Snapshots Pre Cath Intra NCS Post Cath Vital Signs Time Heart Resp SPO2 etCO2 NIBP (mmHg) Rhythm Pain Sedation Rate (ipm) (%) (mmHg) Status Level (bpm) 9:56:28 80 19 98 26.3 150/94(130) NSR 0 (11) 10(A) , No pain 10:00:42 82 22 98 26.3 156/92(136) NSR 0 (11) 10(A) , No pain 10:04:56 82 22 97 27.7 154/97(132) NSR 0 (11) 10(A) , No pain 10:09:10 81 17 96 29.2 155/94(126) NSR 0 (11) 10(A) , No pain 10:13:26 80 17 95 29.2 153/90(117) NSR 0 (11) 10(A) , No pain 10:17:42 85 19 95 30 151/92(124) NSR 0 (11) 10(A) , No pain 10:21:56 84 16 95 30.8 154/91(125) NSR 0 (11) 10(A) , No pain 10:26:14 91 25 92 23.3 160/81(136) NSR 0 (11) 10(A) , No pain 10:30:30 80 15 94 0 159/96(138) NSR 0 (11) 10(A) , No pain 10:34:46 77 17 94 0 154/94(132) NSR 0 (11) 10(A) , No pain 10:39:02 84 23 94 12 162/89(143) NSR 0 (11) 10(A) , No pain 10:43:20 75 17 94 0 144/89(133) NSR 0 (11) 10(A) , No pain 10:47:34 74 18 96 0 148/85(132) NSR 0 (11) 10(A) , No pain 10:51:46 76 20 97 24 161/101(130) NSR 0 (11) 10(A) , No pain 10:56:02 77 20 98 0 159/95(137) NSR 0 (11) 10(A) , No pain 11:00:18 78 19 98 9 159/98(141) NSR 0 (11) 10(A) , No pain 11:04:34 76 17 99 27 151/97(138) NSR 0 (11) 10(A) , No pain 11:09:34 75 22 97 24.7 Measuring NSR 0 (11) 10(A) , No pain 11:09:58 75 21 98 26.2 169/102(147) NSR 0 (11) 10(A) , No pain 11:14:18 75 17 99 0 156/102(136) NSR 0 (11) 10(A) , No pain 11:18:34 76 16 97 11.2 152/96(128) NSR 0 (11) 10(A) , No pain 11:22:48 76 17 98 0.7 151/98(128) NSR 0 (11) 10(A) , No pain 11:27:02 79 17 98 0 156/95(120) NSR 0 (11) 10(A) , No pain Medications Time Medication Route Dose Verified Delivered Reason Notes Effectiveness by by 9:57:03 Heparin Flush added 2 bags Baldev De Paz used for Bag to Nati Damian procedure (1000units/500ml field MD MURPHY NS) 9:57:15 Lidocaine 1% added 20ml vial Baldev De Paz for local to Nati Damian anesthetic field MD MURPHY 10:03:08 Versed I.V. 1 mg Baldev Rutledge for Nati Greenfield RN sedation 10:03:22 Fentanyl I.V. 50 mcg Baldev Rutledge for Nati Greenfield RN sedation 10:06:24 Fentanyl I.V. 50 mcg Baldev Rutledge for Natigus Garibayr RN sedation 10:06:33 Versed I.V. 1 mg Baldev Rutledge for Nati Garibayr RN sedation 10:12:54 Heparin Bolus I.V. 5000 units Baldev Jones Per Nati Parekher RN physician 10:18:42 Fentanyl I.V. 50 mcg Baldev Ledesmai for Nati Fowler RN sedation 10:18:49 Versed I.V. 1 mg Baldev Ledesmai for Nati Fowler RN sedation 10:26:27 Benadryl I.V. 25 mg Baldev Ledesmai for Nati Fowler RN sedation 10:28:17 TPA venous 10mg/100ns Baldev Damian MD, MD 10:29:16 Benadryl I.V. 25 mg Baldev Jones for Nati Fowler RN sedation 10:29:33 Versed I.V. 1 mg Baldev Jones for Nati Fowler RN sedation 10:29:41 Fentanyl I.V. 50 mcg Baldev Jones for Nati Fowler RN sedation 10:53:35 Versed I.V. 1 mg Baldev Ledesmai for Nati Fowler RN sedation 10:53:51 Fentanyl I.V. 50 mcg Baldev Ledesmai for Nati Parekher RN sedation 10:54:10 Heparin Bolus I.V. 3000 units Baldev Jones Per Nati Fowler RN physician 11:08:29 Versed I.V. 1 mg Baldev Jones for Nati Fowler RN sedation 11:08:38 Fentanyl I.V. 50 mcg Baldev Ledesmai for Nati Fowler RN sedation 11:10:35 Versed I.V. 1 mg Baldev Ledesmai for Nati Fowler RN sedation 11:10:50 Fentanyl I.V. 50 mcg Baldev Karen for Nati Fowler RN sedation Procedure Log Time Note 9:28:39 Patient Weight : 189 lbs 9:28:45 Patient Height : 71 inches 9:30:46 Time tracking: Regular hours (M-F 7:00 - 5:00) 9:31:39 Plan of Care:Hemodynamics will remain stable., Cardiac rhythm will remain stable., Comfort level will be maintained., Respiratory function will remain adequate., Patient/ family verbilizes understanding of procedure., Procedure tolerated without complication., Recovers from procedure without complications.. 9:31:48 Patient received from Med/Surg to IR Alert and oriented. Tansferred to table in Supine position. 9:31:54 Signed procedure consent form obtained from patient. 9:32:03 Correct patient and procedure confirmed by team. 9:32:10 H&P Date Dictated: 03/09/2019 Within 30 days and on chart.. 9:32:12 Pre-procedure instructions explained to patient. 9:32:13 Pre-op teaching completed and patient verbalized understanding. 9:32:19 Family in waiting room. 9:32:22 Patient NPO since Midnight. 9:33:02 Patient allergic to Aspirin 9:33:06 Is the patient allergic to Iodine/contrast media? No. 9:33:11 Is patient on blood thinner?Yes 9:33:16 ACC The patient was administered the following blood thiners within the last 24 hours: ACCLovenox 9:33:20 Patient diabetic? No. 9:33:23 - 9:33:24 ----Pre-sedation anethsthesia assessment.---- 9:33:33 Previous problem with sedation/anesthesia? No ? 9:33:40 Snore? Yes 9:33:43 Sleep apnea? No 9:33:46 Deviated septum? No 9:33:47 Opens mouth fully? Yes 9:33:50 Sticks out tongue? Yes 9:34:00 Airway obstruction? No ? 9:34:05 Dentures? Yes out 9:34:17 IV patent on arrival in right forearm with D5/.45%NaCl at O. 9:34:33 Left Arm area was prepped with chlora-prep and draped in sterile fashio n 9:34:41 - 9:34:47 Use device set IR Diagnostic 9:34:49 Tegaderm 4 x 4 (1626W) opened to sterile field. 9:34:50 Sterile Angiographic Pack opened to sterile field. 9:34:51 Bag Decanter (2002S) opened to sterile field. 9:35:31 DOC .035 wire ([id number]) opened to sterile field. 9:35:41 Micropuncture VSI 4FR kit opened to sterile field. 9:36:07 - 9:55:20 Vital chart was started 9:57:03 Heparin Flush Bag (1000units/500ml NS) 2 bags added to field was administered by Baldev Damian MD; used for procedure; 9:57:15 Lidocaine 1% 20ml vial added to field was administered by Baldev saucedo MD; for local anesthetic; 9:57:28 Physician arrived 9:58:30 --------ALL STOP TIME OUT------ 9:58:31 Final Timeout: patient, procedure, and site verified with staff and physician. All members of the team are in agreement. 9:59:04 Procedure started. 9:59:04 Full Disclosure recording started 9:59:10 Local anesthetic to left arm with Lidocaine 1% by Baldev Damian MD.INITIAL ACCESS ONLY 10:03:08 Versed 1 mg I.V. was administered by Maty Greenfield RN; for sedation; 10:03:22 Fentanyl 50 mcg I.V. was administered by Maty Greenfield RN; for sedation ; 10:06:24 Fentanyl 50 mcg I.V. was administered by Maty Greenfield RN; for sedation ; 10:06:33 Versed 1 mg I.V. was administered by Maty Greenfield RN; for sedation; 10:12:52 [facility] .035 145 glide wire ([id number]) opened to sterile field. 10:12:53 CXI Catheter 90cm (V38139) opened to sterile field. 10:12:54 Heparin Bolus 5000 units I.V. was administered by Karen Fowler RN; Per physician; 10:13:[address] [place] ([id number]) opened to sterile field. 10:13:46 AMPLATZ Short Taper 260cm wire ([id number]) opened to sterile field. 10:14:04 ECG and BP/O2 sat monitors applied to patient. 10:14:09 Baseline sample Acquired. 10:14:19 - 10:14:41 Zelante 8Fr Angiojet catheter opened to sterile field. 10:18:42 Fentanyl 50 mcg I.V. was administered by Karen Fowler RN; for sedation; 10:18:49 Versed 1 mg I.V. was administered by Karen Fowler RN; for sedation; 10:26:27 Benadryl 25 mg I.V. was administered by Karen Fowler RN; for sedation; 10:28:17 TPA 10mg/100ns venous was administered by Baldev Damian MD; ; 10:29:16 Benadryl 25 mg I.V. was administered by Karen Fwoler RN; for sedation; 10:29:33 Versed 1 mg I.V. was administered by Karen Fowler RN; for sedation; 10:29:41 Fentanyl 50 mcg I.V. was administered by Karen Fowler RN; for sedation; 10:42:13 INFLATOR BasixTOUCH (CT2979) opened to sterile field. 10:43:09 Inflate balloon Inflation number: 1 A EVERCROSS 10 X 60 X 135 BALLOOON ([id number]) was prepped and advanced across the Undefined1 , then inflated . 10:47:44 Inflate balloon Inflation number: 2 A ATLAS 14 x 4 x 75CM balloon ([id number]) was prepped and advanced across the Undefined1 , then inflated . 10:53:35 Versed 1 mg I.V. was administered by Karen Fowler RN; for sedation; 10:53:51 Fentanyl 50 mcg I.V. was administered by Karen Fowler RN; for sedation; 10:54:10 Heparin Bolus 3000 units I.V. was administered by Karen Fowler RN; Per physician; 10:56:18 Inflate balloon Inflation number: 1 A Evercross 12 x 40 x 135 ([id number]) was prepped and advanced across the Undefined2 , then inflated . 11:08:29 Versed 1 mg I.V. was administered by Karen Fowler RN; for sedation; 11:08:38 Fentanyl 50 mcg I.V. was administered by Karen Fowler RN; for sedation; 11:10:35 Versed 1 mg I.V. was administered by Karen Fowler RN; for sedation; 11:10:50 Fentanyl 50 mcg I.V. was administered by Karen Fowler RN; for sedation; 11:20:25 Procedure ended.(Physican Out) 11:21:20 Fluoroscopy time 14.30 minutes. 11:21:26 Fluoroscopy dose: 1416 mGy 11:21:26 Flurop Dose total: 1416 11:22:35 Contrast amount:Isovue 300 110ml. 11:25:13 Patient needs reinforcement of post procedure teaching. 11:27:58 Report given to Med/Surg. 11:28:25 Vital chart was stopped Intervention Summary Intervention Notes Time ActionType Lesion and Equipment Used Action# Pressure Duration Attributes 10:43:09 Inflate Undefined1 EVERCROSS 10 X 1 0 00:00 balloon 60 X 135 BALLOOON ([id number]) 10:47:44 Inflate Undefined1 ATLAS 14 x 4 x 2 0 00:00 balloon 75CM balloon ([id number]) 10:56:18 Inflate Undefined2 Evercross 12 x 1 0 00:00 balloon 40 x 135 ([id number]) Device Usage Item Name Manufacture Quantity Catalog Number Hospital Part Current M inimal Lot# / Charge Number Stock Stock Serial# Code Tegaderm 4 x 4 3M 1 1626W [id number] 891660 5 (1626W) Sterile Cardinal 1 [id number] 057659 442115 5 Angiographic Health Pack Bag Decanter Microtek 1 731171 35325 280355 5 () Medical Inc. DOC .035 wire Cook Medical 1 L68370 801341 827125 5 ([id number]) Micropuncture VSI VASCULAR 1 7266V 752290 600612 5 VSI 4FR kit [address] .035 [employer] 1 M94539 141559 933191 086696 5 [id number] 145 glide wire ([id number]) CXI Catheter [employer] 1 W37853 777240 286475 677540 5 [id number] 90cm ([id number]) SHEATH 8FR [facility] Jonathan 1 318145 256931 262267 346628 5 Jonathan (011151) AMPLATZ Short [place] 1 [id number] 512958 921953 329194 5 Taper 260cm Scientific wire ([id number]) Zelante 8Fr [place] 1 878751-474 937247 933371 753046 5 AngioARKeX Scientific catheter INFLATOR Merit 1 GB5835 938395 747343 719418 5 Activ Technologies ([id number]) EVERCROSS 10 X Medtronic 1 [id number] 818507 149329 1 60 X 135 BALLOOON ([id number]) ATLAS 14 x 4 x Bard 1 OF90488 122098 918665 889196 5 75CM balloon ([id number]) Evercross 12 x Medtronic 1 [id number] 876418 107935 267014 5 40 x 135 ([id number]) Signature Audit Browning Stage Time Signature Unsigned Intra-Procedure 03/09/2019 Ashley Bradshaw 11:28:20 AM RT(R) [address] [id number] [place] [address]
[2019-03-04 12:45] LABS: BASOPHILS 0.1 % (0-2); EOSINOPHILS 0.2 % (0-7); HEMATOCRIT 40.3 % (42.0-54.0); HEMOGLOBIN 13.5 g/dL (13.5-17.5); IMMATURE GRANULOCYTES 1.3 % (0-5); MCH 27.3 pg (26.0-34.0); MCHC 33.5 g/dL (31.0-37.0); MCV 81.4 fL (80.0-100.0); MEAN PLATELET VOLUME 9.5 fL (7.4-10.4); MONOCYTES 0.5 % (2-11); NEUTROPHILS 86.9 % (40-80); RBC 4.95 10x6/uL (4.20-6.10); RDW 13.5 % (11.5-14.5); WBC 17.1 10x3/uL (4.8-10.8)
--- NOTE | 2019-03-04 12:47 | NUR ---
PATIENT IS CURRENTLY UNDERGOING CHEMO FOR TX OF PANCREATIC CA. HE IS BEING TX BY DR LOBO - HE REPORTS THAT HE HAS HAD 3 TX AT THIS TIME. TAKES ZOFRAN AND PHENERGRAN AT HOME WITH NO RELIEF. PT CONTINUES TO BE N/VOMITING - WITH VOMITING 2 TIMES TODAY - AND 3 EPISODES OF EMESIS YESTERDAY - PT HAS HAD APPROX 30 POUND UNINTENTIONAL WEIGHT LOSS IN PAST TWO MONTHS - PT PRESENTS WITH PERITONEAL DRAIN IN PLACE - SITE IS BRUISED WITH NO S/S OF INFECTION..
[2019-03-04 12:49] LABS: PLATELET COUNT 175 10x3/uL (130-400)
[2019-03-04 13:04] LABS: ALBUMIN 2.1 g/dL (3.4-5.0); ANION GAP 13.1 mmol/L (8-16); BILIRUBIN - TOTAL 0.57 mg/dL (0.2-1.3); CALCIUM 9.1 mg/dL (8.5-10.1); CARBON DIOXIDE 25.6 mmol/L (21.0-32.0); CREATININE - SERUM 1.3 mg/dL (0.6-1.3); POTASSIUM - SERUM 4.7 mmol/L (3.5-5.1); PROTEIN - SERUM 6.7 g/dL (6.4-8.2)
[2019-03-04 13:05] LABS: APPEARANCE CLEAR (CLEAR); BILIRUBIN NEGATIVE (NEGATIVE); COLOR DK YELLOW (YELLOW); GLUCOSE NEGATIVE (NEGATIVE); KETONE NEGATIVE (NEGATIVE); NITRITE NEGATIVE (NEGATIVE); PROTEIN 2+ mg/dL (NEGATIVE); SPECIFIC GRAVITY 1.015 (1.005-1.020); UROBILINOGEN NORMAL (NORMAL)
[2019-03-04 13:06] LABS: BACTERIA FEW /hpf (NONE SEEN); EPITHELIAL CELLS 0-5 /hpf (0-5); RED CELLS - URINE 0-5 /hpf (0-5); WHITE CELLS - URINE 0-5 /hpf (0-5)
[2019-03-04 13:26] VITALS: BP 114/61
--- NOTE | 2019-03-04 13:27 | NUR ---
pt reports continued nausea secondary to IV phenergran - generalized pain - symptoms reports to practitioner - at bedside
--- NOTE | 2019-03-04 13:29 | NUR ---
patient reports pain 8/10 - provider informed.
[2019-03-04 14:00] VITALS: BP 119/68
--- NOTE | 2019-03-04 14:07 | NUR ---
pt returned from CT - reports pain is relieved and "I'm feeling much better"
[2019-03-04 15:00] VITALS: BP 115/71
--- NOTE | 2019-03-04 16:31 | NUR ---
ROCEPHIN COMPLETED INFUSION AT THIS TIME.
--- NOTE | 2019-03-04 19:15 | NUR ---
RECEIVED CARE FROM DAY NURSE. LYING IN BED WITH COMPANY AT SIDE. NO NEEDS VOICED AT THIS TIME. CALL LIGHT AT SIDE. IV INFUSING PER ORDER TO PATENT RIGHT AC.
[2019-03-04 20:00] VITALS: BP 124/74
--- NOTE | 2019-03-05 01:59 | NUR ---
SPOKE WITH TELEMETRY. NO AVAILABLE TELEMETRY BOX'S. PUT ON WAIT LIST.
[2019-03-05 02:46] VITALS: BP 121/74
--- NOTE | 2019-03-05 03:56 | NUR ---
ATTEMPTED NG TUBE PLACEMENT BY ICU NURSE WITH NO SUCCESS.
[2019-03-05 04:00] VITALS: BP 119/69
[2019-03-05 04:57] LABS: HEMATOCRIT 32.8 % (42.0-54.0); MCH 26.7 pg (26.0-34.0); MCHC 32.6 g/dL (31.0-37.0); MCV 81.8 fL (80.0-100.0); MEAN PLATELET VOLUME 9.1 fL (7.4-10.4); RBC 4.01 10x6/uL (4.20-6.10); RDW 13.5 % (11.5-14.5)
[2019-03-05 04:58] LABS: HEMOGLOBIN 10.7 g/dL (13.5-17.5); PLATELET COUNT 109 10x3/uL (130-400); WBC 6.4 10x3/uL (4.8-10.8)
[2019-03-05 05:04] LABS: ALBUMIN 1.6 g/dL (3.4-5.0); ANION GAP 13.9 mmol/L (8-16); BILIRUBIN - TOTAL 0.29 mg/dL (0.2-1.3); CALCIUM 8.3 mg/dL (8.5-10.1); CARBON DIOXIDE 22.3 mmol/L (21.0-32.0); CREATININE - SERUM 1.2 mg/dL (0.6-1.3); POTASSIUM - SERUM 4.2 mmol/L (3.5-5.1); PROTEIN - SERUM 5.4 g/dL (6.4-8.2)
[2019-03-05 05:21] LABS: EOSINOPHILS 1 % (0-7); LYMPHOCYTES 19 % (15-50); MONOCYTES 4 % (2-11); NEUTROPHILS 74 % (40-80); PLATELET ESTIMATE DECREASED
[2019-03-05 08:49] VITALS: BP 131/79
[2019-03-05 09:59] LABS: % SATURATION 16 % (15-55); IRON 19 ug/dl (35-150); TOTAL IRON BIND CAPACITY 115 ug/dl (260-445); UNSAT IRON BIND CAPACITY 96 ug/dl (150-375)
--- NOTE | 2019-03-05 10:57 | NUR ---
IN ROOM. NO FURTHER CO OF PAIN OR NAUSEA. CL IN REACH. NO FURTHER NEEDS AT THIS TIME.
[2019-03-05 12:44] VITALS: BP 121/76
--- NOTE | 2019-03-05 13:34 | NUR ---
PT IV TAPED SO HE COULD SHOWER. NO CO OF PAIN AND STATES HIS NAUSEA SEEMS TO BE A BIT BETTER. CL IN REACH. IN ROOM. WCTM
[2019-03-05 13:49] VITALS: Ht 180.3 cm; Wt 86.2 kg
--- NOTE | 2019-03-05 13:57 | NUR ---
PATIENT NOTICED A RASH ON HIS LEFT LOWER BACK. SLIGHTLY RAISED IN ONE AREA LOOSELY A HALF DOLLAR SIZE. STATES IT DOESN'T ITCH MUCH. IN ROOM WCTM. CL IN REACH.
[2019-03-05 17:55] VITALS: BP 119/76
[2019-03-05 20:00] VITALS: BP 130/83
--- NOTE | 2019-03-05 20:00 | NUR ---
SUPINE IN BED, AT BEDSIDE. A&O X 4. DENIES PAIN AT THIS TIME. ABDOMEN APPEARS DISTENDED. BOWEL SOUNDS ACTIVE X 4. DRAIN TO MID-LOWER LEFT SIDE OF ABDOMEN. PT CALLS IT A PARACENTESIS DRAIN, STATES HE SELF-DRAINS EVERY COUPLE OF DAYS. INFORMED PT JUST TO NOTIFY NURSE WHEN AND HOW MUCH IS DRAINED WHEN HE DOES. REQUESTS TO BE UNHOOKED TO WALK AROUND THE UNIT. DENIES NEED FOR ASSISTIVE DEVICE. GAIT STEADY. WILL CONTINUE TO MONITOR.
[2019-03-06] VITALS: BP 120/74
--- NOTE | 2019-03-06 09:15 | NUR ---
PT RESTING IN BED WATCHING TV. SPOUSE AT BEDSIDE. NO ACUTE DISTRESS NOTED AT THIS TIME. DENIES PAIN AT THIS TIME. IV TO RIGHT AC WITH NS @ 100ML/HR INFUSING VIA PUMP. SITE WITHOUT REDNESS OR EDEMA. DRAIN SITE TO LEFT LOWER QUAD, PT STATES HE DOES DRAIN VIA SELF WHEN FEELING FULL. DENIES FURTHER NEEDS AT THIS TIME. CL WITHIN REACH. ENCOURAGED TO CALL WITH NEEDS. CONTINUE POC
[2019-03-06 09:38] VITALS: BP 133/71
[2019-03-06 09:51] LABS: BASOPHILS 0.4 % (0-2); EOSINOPHILS 0.6 % (0-7); HEMATOCRIT 32.1 % (42.0-54.0); HEMOGLOBIN 10.7 g/dL (13.5-17.5); IMMATURE GRANULOCYTES 7.6 % (0-5); LYMPHOCYTES 17.5 % (15-50); MCH 26.8 pg (26.0-34.0); MCHC 33.3 g/dL (31.0-37.0); MCV 80.5 fL (80.0-100.0); MEAN PLATELET VOLUME 8.6 fL (7.4-10.4); MONOCYTES 5.5 % (2-11); NEUTROPHILS 68.4 % (40-80); RBC 3.99 10x6/uL (4.20-6.10); RDW 13.1 % (11.5-14.5); WBC 7.2 10x3/uL (4.8-10.8)
[2019-03-06 10:09] LABS: PLATELET COUNT 54 10x3/uL (130-400)
[2019-03-06 10:22] LABS: BILIRUBIN - TOTAL 0.3 mg/dL (0.2-1.3); CALCIUM 8.5 mg/dL (8.5-10.1); CARBON DIOXIDE 22.5 mmol/L (21.0-32.0); CREATININE - SERUM 1.2 mg/dL (0.6-1.3); PLATELET ESTIMATE DECREASED; PROTEIN - SERUM 5.5 g/dL (6.4-8.2)
[2019-03-06 10:23] LABS: ALBUMIN 2.1 g/dL (3.4-5.0); POTASSIUM - SERUM 3.5 mmol/L (3.5-5.1)
[2019-03-06 10:24] LABS: ROULEAUX OCC; SMUDGE CELLS OCC
[2019-03-06 12:11] VITALS: BP 136/76
--- NOTE | 2019-03-06 15:30 | MORECARE ---
CASE MANAGEMENT DISCHARGE SUMMARY PATIENT: KRISTINE ERNANDEZ UNIT: [id number] ADM DATE: 03/04/19 AGE: 63 : 59 SEX: M ROOM/BED: D.2207 AUTHOR: LUBNADOC PHYSICIAN: REFERRING PHYSICIAN: GEOVANNA SOTO MD DATE OF SERVICE: 03/06/19 Discharge Plan Patient Name: KRISTINE ERNANDEZ Facility: [facility]:[place] : 1955 Planned Disposition: Home or Self Care Anticipated Discharge Date: Discharge Date: Expected LOS: Initial Reviewer: [email or web address] Initial Review Date: 03/04/2019 Generated: 03/06/19 4:30 pm Comments DCP- Discharge Planning Updated by [email or web address]: Emi Vides on 03/06/19 2:[address] Patient Name: KRISTINE ERNANDEZ Admission Status: ER Accout number: [id number] Admission Date: 03-04-2019 : 1955 Admission Diagnosis: Attending: Geovanna Soto Current LOS: 2 Anticipated DC Date: Planned Disposition: Home or Self Care Primary Insurance: [employer] OUT OF STATE Discharge Planning Comments: CM met with patient to complete initial dc planning assessment. CM educated patient on the CM role and verbal consent given by patient to complete assessment. Patient lives at home with his where he is independent with his care. At discharge patient plans to return home and feels this is a safe discharge. CM discussed availability of home health, rehab services, and medical equipment. Patient denied known discharge needs at this time. His , Janice will be his over the road driver home. CM will continue to follow and will assist as needed with dc plans/needs. Cartography Professor: Emi Vides DCPIA - Discharge Planning Initial Assessment Updated by [email or web address]: Emi Vides on 03/06/19 3:22 pm * Is the patient Alert and Oriented? Yes * How many steps to enter\exit or inside your home? * PCP [facility] * Pharmacy [facility] * Preadmission Environment Home with Family * ADLs Independent * Equipment None * List name and contact numbers for known caregivers / representatives who currently or will assist patient after discharge: JANICE () [phone] * Verbal permission to speak to the caregivers and representatives has been obtained from the patient. Yes * Community resources currently utilized None * Additional services required to return to the preadmission environment? No * Can the patient safely return to the preadmission environment? Yes * Has this patient been hospitalized within the prior 30 days at any hospital? Yes Patient Name: KRISTINE ERNANDEZ Page [id number] at 1530 All edits/amendments must be made on the electronic document DICTATION DATE: 03/06/191529 WAYBILL CLERK: KARI 03/06/191529 RPT#: [id number] DC DATE: STATUS: ADM IN [facility] [address] [place] [address] END OF REPORT
--- NOTE | 2019-03-06 16:23 | NUR ---
LEFT INFUSAPORT ACCESSED WITH 19GA X 1.5 IN NEEDLE. STERILE PRECAUTIONS USED AND FOLLOWED. BIOPATCH IN PLACE. TOLERATED WELL.
[2019-03-06 16:51] VITALS: BP 121/75
[2019-03-06 20:00] VITALS: BP 131/87
[2019-03-07 04:00] VITALS: BP 136/82
[2019-03-07 08:30] VITALS: BP 135/86
[2019-03-07 09:58] LABS: ALBUMIN 2.3 g/dL (3.4-5.0); ANION GAP 13.6 mmol/L (8-16); BILIRUBIN - TOTAL 0.36 mg/dL (0.2-1.3); CALCIUM 8.3 mg/dL (8.5-10.1); CARBON DIOXIDE 20.9 mmol/L (21.0-32.0); CREATININE - SERUM 1.2 mg/dL (0.6-1.3); POTASSIUM - SERUM 3.5 mmol/L (3.5-5.1); PROTEIN - SERUM 5.7 g/dL (6.4-8.2)
[2019-03-07 10:01] LABS: BASOPHILS 0.5 % (0-2); EOSINOPHILS 0.2 % (0-7); HEMATOCRIT 32.1 % (42.0-54.0); HEMOGLOBIN 10.7 g/dL (13.5-17.5); IMMATURE GRANULOCYTES 13.4 % (0-5); LYMPHOCYTES 18.7 % (15-50); MCH 26.6 pg (26.0-34.0); MCHC 33.3 g/dL (31.0-37.0); MCV 79.7 fL (80.0-100.0); MEAN PLATELET VOLUME 9.2 fL (7.4-10.4); MONOCYTES 9.8 % (2-11); NEUTROPHILS 57.4 % (40-80); RBC 4.03 10x6/uL (4.20-6.10); RDW 13.2 % (11.5-14.5); WBC 8.3 10x3/uL (4.8-10.8)
[2019-03-07 10:04] LABS: PLATELET COUNT 49 10x3/uL (130-400)
[2019-03-07 12:45] VITALS: BP 118/66
--- NOTE | 2019-03-07 13:55 | NUR ---
NUTRITION F/U CHART REVIEWED, PT VISIT. TOLERATING REG DIET WITH ~ 50% INTAKE RECENT MEALS. WILL CONTINUE TO PROVIDE DIET, HONOR FOOD PREFERENCES. RD FOLLOWING
--- NOTE | 2019-03-07 14:38 | NUR ---
LEFT INFUSAPORT DRESSING CCHANGED AND DATED PER POLICY. SITE WITHOUT REDDNESS OR SWELLING NOTE.
[2019-03-07 16:00] VITALS: BP 118/57
[2019-03-07 18:10] LABS: APPEARANCE CLEAR (CLEAR); BILIRUBIN NEGATIVE (NEGATIVE); COLOR YELLOW (YELLOW); GLUCOSE NEGATIVE (NEGATIVE); KETONE NEGATIVE (NEGATIVE); NITRITE NEGATIVE (NEGATIVE); PROTEIN NEGATIVE (NEGATIVE); RED CELLS - URINE OCC /hpf (0-5); SPECIFIC GRAVITY 1.025 (1.005-1.020); UROBILINOGEN NORMAL (NORMAL); WHITE CELLS - URINE OCC /hpf (0-5)
[2019-03-07 18:11] LABS: BACTERIA MANY /hpf (NONE SEEN)
--- NOTE | 2019-03-07 19:40 | NUR ---
A/O X4 WITH NO SIGNS OF ACTUE DISTRESS. DENIES PAIN OR OTHER NEEDS AT THIS TIME. CONTINUE WITH PLAN OF CARE.
[2019-03-07 20:00] VITALS: BP 148/87
[2019-03-08 04:00] VITALS: BP 145/84
[2019-03-08 06:17] LABS: BASOPHILS 0.8 % (0-2); EOSINOPHILS 0.4 % (0-7); HEMATOCRIT 29.9 % (42.0-54.0); IMMATURE GRANULOCYTES 14.4 % (0-5); LYMPHOCYTES 18.6 % (15-50); MCH 26.5 pg (26.0-34.0); MCHC 33.4 g/dL (31.0-37.0); MCV 79.1 fL (80.0-100.0); MEAN PLATELET VOLUME 10.4 fL (7.4-10.4); MONOCYTES 14.1 % (2-11); NEUTROPHILS 51.7 % (40-80); RBC 3.78 10x6/uL (4.20-6.10); RDW 13.2 % (11.5-14.5); WBC 8.5 10x3/uL (4.8-10.8)
[2019-03-08 06:18] LABS: PLATELET COUNT 68 10x3/uL (130-400)
[2019-03-08 06:24] LABS: ALBUMIN 2.3 g/dL (3.4-5.0); ANION GAP 14.3 mmol/L (8-16); BILIRUBIN - TOTAL 0.3 mg/dL (0.2-1.3); CALCIUM 8.4 mg/dL (8.5-10.1); CARBON DIOXIDE 20.2 mmol/L (21.0-32.0); CREATININE - SERUM 1.1 mg/dL (0.6-1.3); POTASSIUM - SERUM 3.5 mmol/L (3.5-5.1); PROTEIN - SERUM 5.1 g/dL (6.4-8.2)
--- NOTE | 2019-03-08 07:06 | NUR ---
PT IS RESTING IN BED WITH EYES OPEN. RESPIRATIONS ARE EVEN AND UNLABORED. PT REPORTS SLIGHT PAIN TO ABDOMINAL AREA BUT DENIES NEEDS AT THIS TIME. SWELLING NOTED TO PT LEFT ARM. 3+ PITTING TO LEFT FOREARM AND LEFT HAND. PT INSTRUCTED TO ELEVATE EXTREMITY WITH PILLOWS. PILLOWS GIVEN FOR SUPPORT. PT VERBALIZES UNDERSTANDING. PT DENIES PAIN WITH EDEMA. LEFT CHEST PORT IN PLACE. DRESSING APPLIED AND INTACT. FLUIDS INFUSING TO PORT WITHOUT DIFFICULTY. PT DENIES PRESENCE OF NUMBNESS/TINGLING. PT DENIES PRESENCE OF N/V. IS AT BEDSIDE. BED IS IN THE LOWEST POSITION. CALL LIGHT AND BEDSIDE TABLE ARE WITHIN REACH. SIDE RAILS X 2. WILL CONT TO MONITOR.
[2019-03-08 08:26] LABS: PLATELET ESTIMATE DECREASED
[2019-03-08 08:38] VITALS: BP 156/87
[2019-03-08] MEDS ORDERED: LEVOFLOXACIN500 MG PO (09:06)
--- NOTE | 2019-03-08 09:52 | MORECARE ---
CASE MANAGEMENT DISCHARGE SUMMARY PATIENT: KRISTINE ERNANDEZ UNIT: [id number] ADM DATE: 03/04/19 AGE: 63 : 59 SEX: M ROOM/BED: D.2207 AUTHOR: DEEPALI CALVO PHYSICIAN: REFERRING PHYSICIAN: GEOVANNA SOTO MD DATE OF SERVICE: 03/08/19 Discharge Plan Patient Name: KRISTINE ERNANDEZ Facility: [facility]:[place] : 1955 Planned Disposition: Home or Self Care Anticipated Discharge Date: Discharge Date: Expected LOS: Initial Reviewer: [email or web address] Initial Review Date: 03/04/2019 Generated: 03/08/19 10:52 am Comments DCP- Discharge Planning Updated by [email or web address]: Emi Vides on 03/08/19 8:[address] Patient Name: KRISTINE ERNANDEZ Encounter No: [id number] : 1955 Primary Insurance: [employer] OUT OF STATE Anticipated DC Date: Planned Disposition: Home or Self Care External Planned Provider: : DCP follow-up note: Patient and family in agreement with discharge plan. No changes to plan. Case management will follow and assist as needed. Emi Vides DCP- Discharge Planning Updated by [email or web address]: Emi Vides on 03/06/19 2:[address] Patient Name: KRISTINE ERNANDEZ Admission Status: ER Accout number: [id number] Admission Date: 03-04-2019 : 1955 Admission Diagnosis: Attending: Geovanna Soto Current LOS: 2 Anticipated DC Date: Planned Disposition: Home or Self Care Primary Insurance: [employer] OUT OF STATE Discharge Planning Comments: CM met with patient to complete initial dc planning assessment. CM educated patient on the CM role and verbal consent given by patient to complete assessment. Patient lives at home with his where he is independent with his care. At discharge patient plans to return home and feels this is a safe discharge. CM discussed availability of home health, rehab services, and medical equipment. Patient denied known discharge needs at this time. 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 CM will continue to follow and will assist as needed with dc plans/needs. Bran Mixer: Emi Vides DCPIA - Discharge Planning Initial Assessment Updated by [email or web address]: Emi Vides on 03/06/19 3:22 pm * Is the patient Alert and Oriented? Yes * How many steps to enter\exit or inside your home? * PCP [facility] * Pharmacy [facility] * Preadmission Environment Home with Family * ADLs Independent * Equipment None * List name and contact numbers for known caregivers / representatives who currently or will assist patient after discharge: JANICE () [phone] * Verbal permission to speak to the caregivers and representatives has been obtained from the patient. Yes * Community resources currently utilized None * Additional services required to return to the preadmission environment? No * Can the patient safely return to the preadmission environment? Yes * Has this patient been hospitalized within the prior 30 days at any hospital? Yes Last DP export: 03/06/19 2:30 p Patient Name: KRISTINE ERNANDEZ Page [phone] at 0952 All edits/amendments must be made on the electronic document DICTATION DATE: 03/08/19950 GREEN PRIZE PACKER: KARI 03/08/19950 RPT#: [id number] DC DATE: STATUS: ADM IN [facility] [address] [place] [address] END OF REPORT
[2019-03-08 11:58] VITALS: BP 152/61
--- NOTE | 2019-03-08 12:19 | MORECARE ---
CASE MANAGEMENT DISCHARGE SUMMARY PATIENT: KRISTINE ERNANDEZ UNIT: [id number] ADM DATE: 03/04/19 AGE: 63 : 59 SEX: M ROOM/BED: D.2207 AUTHOR: LUBNADOC PHYSICIAN: REFERRING PHYSICIAN: GEOVANNA SOTO MD DATE OF SERVICE: 03/08/19 Discharge Plan Patient Name: KRISTINE ERNANDEZ Facility: [facility]:[place] : 1955 Planned Disposition: Home or Self Care Anticipated Discharge Date: Discharge Date: Expected LOS: Initial Reviewer: [email or web address] Initial Review Date: 03/04/2019 Generated: 03/08/19 1:19 pm Comments DCP- Discharge Planning Updated by [email or web address]: Emi Vides on 03/08/19 11:[address] PATIENT DC IS BEING HELD PER CHARLES DCP- Discharge Planning Updated by [email or web address]: Emi Vides on 03/08/19 8:[address] Patient Name: KRISTINE ERNANDEZ Encounter No: [id number] : 1955 Primary Insurance: [employer] OUT OF STATE Anticipated DC Date: Planned Disposition: Home or Self Care External Planned Provider: : DCP follow-up note: Patient and family in agreement with discharge plan. No changes to plan. Case management will follow and assist as needed. Emi Vides DCP- Discharge Planning Updated by [email or web address]: Emi Vides on 03/06/19 2:[address] Patient Name: KRISTINE ERNANDEZ Admission Status: ER Accout number: [id number] Admission Date: 03-04-2019 : 1955 Admission Diagnosis: Attending: Geovanna Soto Current LOS: 2 Anticipated DC Date: Planned Disposition: Home or Self Care Primary Insurance: [employer] OUT OF STATE Discharge Planning Comments: CM met with patient to complete initial dc planning assessment. CM educated patient on the CM role and verbal consent given by patient to complete assessment. Patient lives at home with his where he is independent with his care. At discharge patient plans to return home and feels this is a safe discharge. CM discussed availability of home health, rehab services, and medical equipment. Patient denied known discharge needs at this time. His , Janice will be his dedicated regional driver home. CM will continue to follow and will assist as needed with dc plans/needs. Intermodal Owner Operator Truck Driver: Emi Vides DCPIA - Discharge Planning Initial Assessment Updated by [email or web address]: Emi Vides on 03/06/19 3:22 pm * Is the patient Alert and Oriented? Yes * How many steps to enter\exit or inside your home? * PCP ALMONTE * Pharmacy [facility] * Preadmission Environment Home with Family * ADLs Independent * Equipment None * List name and contact numbers for known caregivers / representatives who currently or will assist patient after discharge: JANICE () [phone] * Verbal permission to speak to the caregivers and representatives has been obtained from the patient. Yes * Community resources currently utilized None * Additional services required to return to the preadmission environment? No * Can the patient safely return to the preadmission environment? Yes * Has this patient been hospitalized within the prior 30 days at any hospital? Yes Last DP export: 03/08/19 8:52 a Patient Name: KRISTINE ERNANDEZ Page 19452 at 1219 All edits/amendments must be made on the electronic document DICTATION DATE: 03/08/191218 PASTE MAKER: KARI 03/08/191218 RPT#: [id number] DC DATE: STATUS: ADM IN [facility] [address] [place] [address] END OF REPORT
--- NOTE | 2019-03-08 12:23 | NUR ---
PER DR SOTO, HOLD LOVENOX UNTIL IR CONSULTS ON PT.
[2019-03-08 16:34] VITALS: BP 134/64
--- NOTE | 2019-03-08 17:20 | NUR ---
20G PIV TO RIGHT HAND X 1 ATTEMPT.
[2019-03-08 20:00] VITALS: BP 152/88
--- NOTE | 2019-03-08 20:20 | NUR ---
A/O X4 WITH NO SIGNS OF DISTRESS NOTED. LT ARM SWOLLEN AND PROPPED UP ON THE PILLOW. DENIES PAIN OR OTHER NEEDS AT THIS TIME. WILL CONTINUE TO MONITOR.
[2019-03-09] VITALS (8 sets, daily range): BP systolic 117–166; BP diastolic 66–90
[2019-03-09 06:55] LABS: ALBUMIN 2.6 g/dL (3.4-5.0); ANION GAP 13.9 mmol/L (8-16); BILIRUBIN - TOTAL 0.41 mg/dL (0.2-1.3); CALCIUM 8.5 mg/dL (8.5-10.1); CARBON DIOXIDE 22.7 mmol/L (21.0-32.0); CREATININE - SERUM 1.2 mg/dL (0.6-1.3); POTASSIUM - SERUM 3.6 mmol/L (3.5-5.1); PROTEIN - SERUM 5.5 g/dL (6.4-8.2)
[2019-03-09 07:05] LABS: HEMATOCRIT 30.6 % (42.0-54.0); HEMOGLOBIN 10.2 g/dL (13.5-17.5); MCH 26.6 pg (26.0-34.0); MCHC 33.3 g/dL (31.0-37.0); MCV 79.7 fL (80.0-100.0); MEAN PLATELET VOLUME 10.3 fL (7.4-10.4); RBC 3.84 10x6/uL (4.20-6.10); RDW 13.4 % (11.5-14.5); WBC 10.2 10x3/uL (4.8-10.8)
--- NOTE | 2019-03-09 07:05 | NUR ---
PATIENT RECIEVED FROM PREVIOUS SHIFT RESTING WITH EYES CLOSED. AT BEDSIDE. PATIENT IS NPO FOR VENOGRAM AND TROMBECTOMY LATER THIS AM.
[2019-03-09 07:08] LABS: PLATELET COUNT 131 10x3/uL (130-400)
[2019-03-09 07:17] LABS: APTT 56.3 SECONDS (22.8-39.4); INR 1.69 (0.85-1.17); PROTIME 19.3 SECONDS (11.6-15.0)
[2019-03-09 10:05] LABS: LYMPHOCYTES 15 % (15-50); MONOCYTES 17 % (2-11); NEUTROPHILS 58 % (40-80); PLATELET ESTIMATE DECREASED
--- NOTE | 2019-03-09 16:41 | NUR ---
NOTIFIED DR LOPEZ OF 166/90 BP WITH NEW ORDER FOR PRN CLONIDINE RECD
--- NOTE | 2019-03-09 21:10 | NUR ---
A&O X 4. AMBULATORY IN ROOM. REPORTS HE LAST EMPTIED HIS ABDOMINAL DRAIN ON 03/07. DRESSING C/D/I. REPORTS PAIN OF 01/24. DENIES FURTHER NEEDS, WILL CONTINUE TO MONITOR.
[2019-03-10] VITALS: BP 133/83
[2019-03-10 04:50] VITALS: BP 139/89
[2019-03-10 05:41] LABS: BASOPHILS 0.3 % (0-2); EOSINOPHILS 0.9 % (0-7); HEMATOCRIT 28.2 % (42.0-54.0); HEMOGLOBIN 9.3 g/dL (13.5-17.5); IMMATURE GRANULOCYTES 8.4 % (0-5); LYMPHOCYTES 12.6 % (15-50); MCH 26.7 pg (26.0-34.0); MEAN PLATELET VOLUME 10.3 fL (7.4-10.4); MONOCYTES 16.3 % (2-11); NEUTROPHILS 61.5 % (40-80); RBC 3.48 10x6/uL (4.20-6.10); RDW 13.8 % (11.5-14.5); WBC 11.5 10x3/uL (4.8-10.8)
[2019-03-10 05:42] LABS: PLATELET COUNT 224 10x3/uL (130-400)
[2019-03-10 06:06] LABS: ALBUMIN 2.6 g/dL (3.4-5.0); ANION GAP 13.9 mmol/L (8-16); BILIRUBIN - TOTAL 0.54 mg/dL (0.2-1.3); CALCIUM 8.2 mg/dL (8.5-10.1); CARBON DIOXIDE 20.9 mmol/L (21.0-32.0); CREATININE - SERUM 1.2 mg/dL (0.6-1.3); POTASSIUM - SERUM 3.8 mmol/L (3.5-5.1); PROTEIN - SERUM 4.7 g/dL (6.4-8.2)
--- NOTE | 2019-03-10 07:15 | NUR ---
REC'D IN BED AWAKE AND ALERT. RESP EVEN AND UNLABORED WITH NO DISTRESS NOTED. CAN EXPRESS NEEDS AND WANTS. NO C/O NOTED OR VOICED. ASSESSMENT COMPLETED. C/L AND FAMILY AT BEDSIDE.
[2019-03-10 08:59] VITALS: BP 141/87
[2019-03-10 10:14] LABS: INR 1.62 (0.85-1.17); PROTIME 18.6 SECONDS (11.6-15.0)
[2019-03-10 14:37] VITALS: BP 144/82
[2019-03-10 16:49] VITALS: BP 151/88
--- NOTE | 2019-03-10 18:01 | NUR ---
I have reviewed this patient and I concur with the Shift Assessment completed by the Licensed Practical Nurse today this shift.
[2019-03-10 19:50] VITALS: BP 144/87
--- NOTE | 2019-03-10 20:05 | NUR ---
LYING IN BED. ALERT AND ORIENTED X4. C/O PAIN IN RT ABD 3 ON PAIN SCALE. DENIES NEED FOR PAIN MED AT THIS TIME BUT REQUESTS ANXIETY MED WITH PM MED PASS. RESP NONLABORED. BBS CTA BUT DIMINISHED IN LLL. SCABS NOTED TO LUQ. PD DRAIN NOTED TO LLQ. ASCITES NOTED. BRUISES NOTED TO BUE. AMBULATORY. LUE IS RED, SWOLLEN AND ELEVATED ON PILLOW. NS @ 50 ML/HR INFUSING IN RT WRIST. LT ARM RESERVE. LT CW MEDIPORT IS ACCESSED AND SALINE LOCKED BUT NOT IN USE AT THIS TIME. SR ELEVATED X2. CL IN REACH.
--- NOTE | 2019-03-10 20:45 | NUR ---
MEDICATED WITH ATIVAN FOR C/O ANXIETY. CL IN REACH.
--- NOTE | 2019-03-10 22:10 | NUR ---
C/O PAIN IN ABD RATING 8 AND STABBING. MEDICATED WITH DILAUDID ORDERED. CL IN REACH.
[2019-03-11] VITALS: BP 131/87
[2019-03-11 04:00] VITALS: BP 146/87
--- NOTE | 2019-03-11 04:02 | NUR ---
HAS RESTED WELL TONIGHT. NO DISTRESS. DENIES PAIN AT THIS TIME. CL IN REACH.
--- NOTE | 2019-03-11 05:17 | NUR ---
MEDICATED WITH DILAUDID FOR C/O PAIN IN ABD. CL IN REACH.
[2019-03-11 06:39] LABS: BASOPHILS 0.2 % (0-2); HEMOGLOBIN 9.9 g/dL (13.5-17.5); IMMATURE GRANULOCYTES 6.2 % (0-5); LYMPHOCYTES 9.9 % (15-50); MCH 27.3 pg (26.0-34.0); MCHC 34.1 g/dL (31.0-37.0); MCV 80.1 fL (80.0-100.0); MEAN PLATELET VOLUME 9.8 fL (7.4-10.4); MONOCYTES 13.7 % (2-11); RBC 3.62 10x6/uL (4.20-6.10)
[2019-03-11 06:43] LABS: PLATELET COUNT 382 10x3/uL (130-400)
[2019-03-11 06:53] LABS: ALBUMIN 2.7 g/dL (3.4-5.0); ANION GAP 13.3 mmol/L (8-16); BILIRUBIN - TOTAL 0.5 mg/dL (0.2-1.3); CALCIUM 8.4 mg/dL (8.5-10.1); CREATININE - SERUM 1.1 mg/dL (0.6-1.3); POTASSIUM - SERUM 3.3 mmol/L (3.5-5.1); PROTEIN - SERUM 5.4 g/dL (6.4-8.2)
[2019-03-11 07:14] VITALS: BP 144/85
--- NOTE | 2019-03-11 08:00 | NUR ---
ASSESSMENT PER FLOW SHEET. PT IS WITHOUT DISTRESS.MONITOR FOR NEEDS. AT BEDSIDE
[2019-03-11] MEDS ORDERED: LOVENOX INJ100 MG/ML SC (12:41)
[2019-03-11] MEDS ORDERED: PROTONIX40 MG PO (12:41)
[2019-03-11] MEDS ORDERED: FLORAJEN3 CAPS460 MG PO (12:41)
[2019-03-11] MEDS ORDERED: REGLAN10 MG PO (12:41)
[2019-03-11] MEDS ORDERED: ATIVAN1 MG PO (12:41)
[2019-03-11] MEDS ORDERED: DILAUDID2 MG PO (12:41)
[2019-03-11] MEDS ORDERED: COUMADIN5 MG PO (12:41)
[2019-03-11 12:43] VITALS: BP 151/94
--- NOTE | 2019-03-11 13:47 | MORECARE ---
CASE MANAGEMENT DISCHARGE SUMMARY PATIENT: KRISTINE ERNANDEZ UNIT: [id number] ADM DATE: 03/04/19 AGE: 63 : 59 SEX: M ROOM/BED: D.2207 AUTHOR: LUBNADOC PHYSICIAN: REFERRING PHYSICIAN: GEOVANNA SOTO MD DATE OF SERVICE: 03/11/19 Discharge Plan Patient Name: KRISTINE ERNANDEZ Facility: [facility]:[place] : 1955 Planned Disposition: Home or Self Care Anticipated Discharge Date: 03/11/19 Discharge Date: Expected LOS: 7 Initial Reviewer: [email or web address] Initial Review Date: 03/04/2019 Generated: 03/11/19 2:47 pm Comments DCP- Discharge Planning Updated by [email or web address]: Emi Vides on 03/08/19 11:[address] PATIENT DC IS BEING HELD PER CHARLES DCP- Discharge Planning Updated by [email or web address]: Emi Vides on 03/08/19 8:[address] Patient Name: KRISTINE ERNANDEZ Encounter No: [id number] : 1955 Primary Insurance: [employer] OUT OF STATE Anticipated DC Date: Planned Disposition: Home or Self Care External Planned Provider: : DCP follow-up note: Patient and family in agreement with discharge plan. No changes to plan. Case management will follow and assist as needed. Emi Vides DCP- Discharge Planning Updated by [id number]: Emi Vides on 03/06/19 2:[address] Patient Name: KRISTINE ERNANDEZ Admission Status: ER Accout number: [id number] Admission Date: 03-04-2019 : 1955 Admission Diagnosis: Attending: Geovanna Soto Current LOS: 2 Anticipated DC Date: Planned Disposition: Home or Self Care Primary Insurance: [employer] OUT OF STATE Discharge Planning Comments: CM met with patient to complete initial dc planning assessment. CM educated patient on the CM role and verbal consent given by patient to complete assessment. Patient lives at home with his where he is independent with his care. At discharge patient plans to return home and feels this is a safe discharge. CM discussed availability of home health, rehab services, and medical equipment. Patient denied known discharge needs at this time. His , Janice will be his dray truck driver home. CM will continue to follow and will assist as needed with dc plans/needs. Software Deployment Engineer: Emi Vides DCPIA - Discharge Planning Initial Assessment Updated by [email or web address]: Emi Vides on 03/06/19 3:22 pm * Is the patient Alert and Oriented? Yes * How many steps to enter\exit or inside your home? * PCP [facility]TE * Pharmacy [facility] * Preadmission Environment Home with Family * ADLs Independent * Equipment None * List name and contact numbers for known caregivers / representatives who currently or will assist patient after discharge: JANICE () [phone] * Verbal permission to speak to the caregivers and representatives has been obtained from the patient. Yes * Community resources currently utilized None * Additional services required to return to the preadmission environment? No * Can the patient safely return to the preadmission environment? Yes * Has this patient been hospitalized within the prior 30 days at any hospital? Yes Last DP export: 03/08/19 11:19 a Patient Name: KRISTINE ERNANDEZ Page 30461 at 1347 All edits/amendments must be made on the electronic document DICTATION DATE: 03/11/191346 SWIM COACH: KARI 03/11/191346 RPT#: [id number] DC DATE: STATUS: ADM IN [facility] [address] [place] [address] END OF REPORT
--- NOTE | 2019-03-11 13:58 | MORECARE ---
CASE MANAGEMENT DISCHARGE SUMMARY PATIENT: KRISTINE ERNANDEZ UNIT: [id number] ADM DATE: 03/04/19 AGE: 63 : 59 SEX: M ROOM/BED: D.2207 AUTHOR: DEEPALI CALVO PHYSICIAN: REFERRING PHYSICIAN: GEOVANNA SOTO MD DATE OF SERVICE: 03/11/19 Discharge Plan Patient Name: KRISTINE ERNANDEZ Facility: [facility]:[place] : 1955 Planned Disposition: Home or Self Care Anticipated Discharge Date: 03/11/19 Discharge Date: Expected LOS: 7 Initial Reviewer: [email or web address] Initial Review Date: 03/04/2019 Generated: 03/11/19 2:57 pm Comments DCP- Discharge Planning Updated by [email or web address]: Shana Ayala on 03/11/19 12:[address] CM met with the patient and his at the bedside. Advised the patient of his discharge on Lovenox injections. Discussed home health and providers. Provided h/h list of providers. coordinator of online programs checked to see if his pharmacy had the Lovenox and if any co-pay. The [facility] has the Lovenox and there is no copay. CM advised the patient and his . They decline h/h services. The patient wishes the nurse to instruct. He also states they have 2/ 3neighbors who are nurses and can help. DCP- Discharge Planning Updated by [email or web address]: Emi Vides on 03/08/19 11:[address] PATIENT DC IS BEING HELD PER CHARLES DCP- Discharge Planning Updated by [id number]: Emi Vides on 03/08/19 8:[address] Patient Name: KRISTINE ERNANDEZ Encounter No: [id number] : 1955 Primary Insurance: [employer] OUT OF STATE Anticipated DC Date: Planned Disposition: Home or Self Care External Planned Provider: : DCP follow-up note: Patient and family in agreement with discharge plan. No changes to plan. Case management will follow and assist as needed. Emi Vides DCP- Discharge Planning Updated by [email or web address]: Emi Vides on 03/06/19 2:[address] Patient Name: KRISTINE ERNANDEZ Admission Status: ER Accout number: [id number] Admission Date: 03-04-2019 : 1955 Admission Diagnosis: Attending: Geovanna Soto Current LOS: 2 Anticipated DC Date: Planned Disposition: Home or Self Care Primary Insurance: [employer] OUT OF STATE Discharge Planning Comments: CM met with patient to complete initial dc planning assessment. CM educated patient on the CM role and verbal consent given by patient to complete assessment. Patient lives at home with his where he is independent with his care. At discharge patient plans to return home and feels this is a safe discharge. CM discussed availability of home health, rehab services, and medical equipment. Patient denied known discharge needs at this time. His , Janice will be his scoop driver home. CM will continue to follow and will assist as needed with dc plans/needs. Cte Teacher: Emi Vides DCPIA - Discharge Planning Initial Assessment Updated by [email or web address]: Emi Vides on 03/06/19 3:22 pm * Is the patient Alert and Oriented? Yes * How many steps to enter\exit or inside your home? * PCP ALMONTE * Pharmacy [facility] * Preadmission Environment Home with Family * ADLs Independent * Equipment None * List name and contact numbers for known caregivers / representatives who currently or will assist patient after discharge: JANICE () [phone] * Verbal permission to speak to the caregivers and representatives has been obtained from the patient. Yes * Community resources currently utilized None * Additional services required to return to the preadmission environment? No * Can the patient safely return to the preadmission environment? Yes * Has this patient been hospitalized within the prior 30 days at any hospital? Yes Last DP export: 03/11/19 12:48 p Patient Name: KRISTINE ERNANDEZ Page 39758 at 1358 All edits/amendments must be made on the electronic document DICTATION DATE: 03/11/19 4966 COATING MACHINE FEEDER: KARI 03/11/19 1357 RPT#: [id number] DC DATE: STATUS: ADM IN [facility] [address] [place] [address] END OF REPORT
--- NOTE | 2019-03-11 15:28 | NUR ---
IV DCD WITH CATH TIP INTACT.BLOOD RETURN CONFIRMED LEFT PORT. PORT FLUSHED WITH SALINE THEN FOLLOWED BY HEPARIN FLUSH. DISCHRGE INSTRUCTIONS,STATES UNDERSTANDING.
--- NOTE | 2019-03-11 15:31 | NUR ---
LEFT UNIT VIA WHEELCHAIR FOR TRANSPORT HOME
--- NOTE | 2019-03-12 12:08 | MORECARE ---
CASE MANAGEMENT DISCHARGE SUMMARY PATIENT: KRISTINE ERNANDEZ UNIT: [id number] ADM DATE: 03/04/19 AGE: 63 : 59 SEX: M ROOM/BED: D.2207 AUTHOR: DEEPALI CALVO PHYSICIAN: REFERRING PHYSICIAN: GEOVANNA SOTO MD DATE OF SERVICE: 03/12/19 Discharge Plan Patient Name: KRISTINE ERNANDEZ Facility: [facility]:[place] : 1955 Planned Disposition: Home or Self Care Anticipated Discharge Date: 03/11/19 Discharge Date: 03/11/2019 Expected LOS: 7 Initial Reviewer: [email or web address] Initial Review Date: 03/04/2019 Generated: 03/12/19 1:07 pm Comments DCP- Discharge Planning Updated by [id number]: Shana Ayala on 03/11/19 12:[address] CM met with the patient and his at the bedside. Advised the patient of his discharge on Lovenox injections. Discussed home health and providers. Provided h/h list of providers. coordinator skill training program checked to see if his pharmacy had the Lovenox and if any co-pay. The [facility] has the Lovenox and there is no copay. CM advised the patient and his . They decline h/h services. The patient wishes the nurse to instruct. He also states they have 2/ 3neighbors who are nurses and can help. DCP- Discharge Planning Updated by [id number]: Emi Vides on 03/08/19 11:[address] PATIENT DC IS BEING HELD PER CHARLES DCP- Discharge Planning Updated by [email or web address]: Emi Vides on 03/08/19 8:[address] Patient Name: KRISTINE ERNNADEZ Encounter No: [id number] : 1955 Primary Insurance: [employer] OUT OF STATE Anticipated DC Date: Planned Disposition: Home or Self Care External Planned Provider: : DCP follow-up note: Patient and family in agreement with discharge plan. No changes to plan. Case management will follow and assist as needed. Emi Vides DCP- Discharge Planning Updated by [email or web address]: Emi Vides on 03/06/19 2:[address] Patient Name: KRISTINE ERNANDEZ Admission Status: ER Accout number: [id number] Admission Date: 03-04-2019 : 1955 Admission Diagnosis: Attending: Geovanna Soto Current LOS: 2 Anticipated DC Date: Planned Disposition: Home or Self Care Primary Insurance: [employer] OUT OF STATE Discharge Planning Comments: CM met with patient to complete initial dc planning assessment. CM educated patient on the CM role and verbal consent given by patient to complete assessment. Patient lives at home with his where he is independent with his care. At discharge patient plans to return home and feels this is a safe discharge. CM discussed availability of home health, rehab services, and medical equipment. Patient denied known discharge needs at this time. His , Janice will be his substitute bus driver home. CM will continue to follow and will assist as needed with dc plans/needs. Analytical Laboratory Technician: Emi Vides DCPIA - Discharge Planning Initial Assessment Updated by [email or web address]: Emi Vides on 03/06/19 3:22 pm * Is the patient Alert and Oriented? Yes * How many steps to enter\exit or inside your home? * PCP ALMONTE * Pharmacy [facility] * Preadmission Environment Home with Family * ADLs Independent * Equipment None * List name and contact numbers for known caregivers / representatives who currently or will assist patient after discharge: JANICE () [phone] * Verbal permission to speak to the caregivers and representatives has been obtained from the patient. Yes * Community resources currently utilized None * Additional services required to return to the preadmission environment? No * Can the patient safely return to the preadmission environment? Yes * Has this patient been hospitalized within the prior 30 days at any hospital? Yes Last DP export: 03/11/19 12:58 p Patient Name: KRISTINE ERNANDEZ Page 61943 at 1208 All edits/amendments must be made on the electronic document DICTATION DATE: 03/12/191206 REHABILITATION ATTENDANT: KARI 03/12/191206 RPT#: [id number] DC DATE:03/11/19 STATUS: DIS IN [place] [id number] [place] [address] END OF REPORT
== END 2019-03-11 15:31 | disposition home or self-care (01) | DRG 907 ==
LOC: D.ER 11:48 → D.MS 16:40
PROVIDERS: Family Medicine; Radiology Diagnostic Radiology; ADMIT Internal Medicine Hematology & Oncology; ATTEND Internal Medicine Hematology & Oncology
PROC: 05C83ZZ Extirpation of Matter from Left Axillary Vein, Percutaneous Approach (ICD-10-PCS; 2019-03-09)
PROC: 05763ZZ Dilation of Left Subclavian Vein, Percutaneous Approach (ICD-10-PCS; 2019-03-09)
PROC: 05C63ZZ Extirpation of Matter from Left Subclavian Vein, Percutaneous Approach (ICD-10-PCS; 2019-03-09)
PROC: 05C43ZZ Extirpation of Matter from Left Innominate Vein, Percutaneous Approach (ICD-10-PCS; 2019-03-09)
PROC: B50NYZZ Plain Radiography of Left Upper Extremity Veins using Other Contrast (ICD-10-PCS; 2019-03-09)
PROC: 05743ZZ Dilation of Left Innominate Vein, Percutaneous Approach (ICD-10-PCS; principal; 2019-03-09 09:30)
DX: T85.71XA Infection and inflammatory reaction due to peritoneal dialysis catheter, initial encounter (principal); E43 Unspecified severe protein-calorie malnutrition; L03.90 Cellulitis, unspecified; C25.9 Malignant neoplasm of pancreas, unspecified; N39.0 Urinary tract infection, site not specified; R18.8 Other ascites; I82.622 Acute embolism and thrombosis of deep veins of left upper extremity; D72.829 Elevated white blood cell count, unspecified; I10 Essential (primary) hypertension; E78.5 Hyperlipidemia, unspecified; D69.59 Other secondary thrombocytopenia; T45.1X5A Adverse effect of antineoplastic and immunosuppressive drugs, initial encounter; B96.20 Unspecified Escherichia coli [E. coli] as the cause of diseases classified elsewhere; B96.1 Klebsiella pneumoniae [K. pneumoniae] as the cause of diseases classified elsewhere

== ENCOUNTER 2019-03-14 09:13 | Inpatient (IN) | payer BC ==
[~2019-03-14] VITALS: Ht 180.3 cm; Wt 88.5 kg
--- NOTE | ~2019-03-14 | HEMODYNAMI ---
PATIENT:KRISTINE ERNANDEZ MEDICAL RECORD: [id number] : 59 LOCATION:[facility] D.2215 ADMISSION DATE: 03/14/19 Generatedon:03/15/201917:13 Patient name: KRISTINE ERNANDEZ Patient #: [id number] SSN: : 1955 Date of study: 03/15/2019 Page: Of Hemodynamic Procedure Report Patient Data Patient Demographics Procedure consent was obtained First Name: KRISTINE Gender: Male Last Name: AWAIS : 1955 Middle Initial: LILIANA Age: 63 year(s) Patient #: [id number] Race: Unknown Additional ID: [id number] Contact details [address]: [address] [place] [address] State: [place] City: [place] Zip code: [address] Past Medical History Allergies Allergen Reaction Date Comments Reported Aspirin 03/09/2019 Aspirin 03/15/2019 Admission Admission Data Admission Date: 03/14/2019 Admission Time: 11:13 Room #: D[facility] Procedure Procedure Types Cath Procedure Peripheral Cath Diagnostic Procedure Venography Extremity Left Upper Ext. Venagram Procedure Description Procedure Date Procedure Date: 03/15/2019 Procedure Start Time: 14:44 Procedure Staff Name Function Janusz Sifuentes MD Performing Physician Ashley Bradshaw RT Monitor Karen Fowler RN Nurse Maty Greenfield RN Nurse COLT AUSTIN RT Scrub Procedure Data Cath Procedure Fluoroscopy Diagnostic fluoroscopy Total fluoroscopy Time: 19 time: 19 min min Diagnostic fluoroscopy Total fluoroscopy dose: dose: 2587 mGy 2587 mGy Contrast Material Contrast Material Type Amount (ml) Isovue 300 145 Procedure Medications Medication Administration Route Dosage Heparin Flush Bag added to field 3 bags (1000units/500ml NS) Lidocaine 1% with added to field 20 ml Epi Versed I.V. 1 mg Fentanyl I.V. 50 mcg Benadryl I.V. 25 mg Benadryl I.V. 25 mg Fentanyl I.V. 50 mcg Versed I.V. 1 mg Versed I.V. 1 mg Fentanyl I.V. 50 mcg Fentanyl I.V. 50 mcg Versed I.V. 1 mg Versed I.V. 1 mg Fentanyl I.V. 50 mcg Versed I.V. 1 mg Fentanyl I.V. 50 mcg unlisted medication Heparin Bolus I.V. 3000 units Fentanyl I.V. 50 mcg Fentanyl I.V. 50 mcg Heparin Bolus I.V. 1000 units Hemodynamics Rest Heart Rate: 89 (bpm) Snapshots Pre Cath Intra NCS Post Cath Vital Signs Time Heart Resp SPO2 etCO2 NIBP (mmHg) Rhythm Pain Sedation Rate (ipm) (%) (mmHg) Status Level (bpm) 14:24:02 88 21 97 27.8 182/90(122) NSR 0 (11) 10(A) , No pain 14:28:22 87 19 96 27.8 171/92(114) NSR 0 (11) 10(A) , No pain 14:32:40 87 21 97 27.8 184/89(111) NSR 0 (11) 10(A) , No pain 14:37:03 88 19 97 27.8 182/87(110) NSR 0 (11) 10(A) , No pain 14:41:25 88 19 96 29.3 178/88(119) NSR 0 (11) 8(A) , No pain 14:45:45 85 20 95 27.8 173/89(115) NSR 0 (11) 8(A) , No pain 14:50:03 85 17 96 3 175/89(121) NSR 0 (11) 8(A) , No pain 14:54:21 86 19 95 1.5 172/87(120) NSR 0 (11) 8(A) , No pain 14:58:39 87 15 96 0 167/86(126) NSR 0 (11) 8(A) , No pain 15:02:57 85 13 96 1.5 178/85(129) NSR 0 (11) 8(A) , No pain 15:07:17 88 17 9.7 169/86(131) NSR 0 (11) 8(A) , No pain 15:11:35 85 16 98 25.5 169/87(111) NSR 0 (11) 8(A) , No pain 15:15:53 83 12 98 1.5 171/88(107) NSR 0 (11) 8(A) , No pain 15:20:14 82 13 98 1.5 172/82(129) NSR 0 (11) 8(A) , No pain 15:24:34 82 11 98 15.7 177/82(129) NSR 0 (11) 8(A) , No pain 15:28:56 85 22 98 23.3 169/81(112) NSR 0 (11) 8(A) , No pain 15:33:16 83 12 98 2.2 170/81(124) NSR 0 (11) 8(A) , No pain 15:37:34 86 18 98 11.2 176/85(114) NSR 0 (11) 8(A) , No pain 15:41:54 83 13 99 10.5 178/88(117) NSR 0 (11) 8(A) , No pain 15:46:16 81 11 98 0 172/82(116) NSR 0 (11) 8(A) , No pain 15:50:36 81 11 99 0.7 172/83(115) NSR 0 (11) 8(A) , No pain 15:54:59 79 10 99 1.5 173/76(111) NSR 0 (11) 8(A) , No pain 15:59:58 81 12 98 10.5 Measuring NSR 0 (11) 8(A) , No pain 16:00:06 81 11 99 21.8 177/87(118) NSR 0 (11) 8(A) , No pain 16:04:28 83 17 98 10.5 167/81(120) NSR 0 (11) 8(A) , No pain 16:08:48 88 20 98 14.2 165/77(117) NSR 0 (11) 8(A) , No pain 16:13:02 81 17 100 30.8 180/90(121) NSR 0 (11) 8(A) , No pain 16:17:22 81 21 100 23.3 182/92(134) NSR 0 (11) 8(A) , No pain 16:21:40 79 17 100 13.5 189/95(130) NSR 0 (11) 8(A) , No pain 16:26:05 79 18 100 21.8 183/89(118) NSR 0 (11) 8(A) , No pain 16:30:25 85 23 100 20.3 138/92(112) NSR 0 (11) 8(A) , No pain 16:35:24 78 27 100 9 Measuring NSR 0 (11) 8(A) , No pain 16:35:32 77 25 100 9.7 187/102(128) NSR 0 (11) 8(A) , No pain 16:39:54 80 18 100 12 139/90(128) NSR 0 (11) 8(A) , No pain 16:44:53 78 17 100 12.7 Measuring NSR 0 (11) 8(A) , No pain 16:45:02 79 17 100 12.7 183/94(129) NSR 0 (11) 8(A) , No pain 16:49:17 80 17 100 13.5 182/102(121) NSR 0 (11) 8(A) , No pain 16:53:38 81 13 94 14.2 180/97(128) NSR 0 (11) 8(A) , No pain 16:57:58 77 15 97 9.7 199/94(127) NSR 0 (11) 8(A) , No pain 17:02:24 77 16 98 12 185/102(125) NSR 0 (11) 8(A) , No pain 17:06:46 78 16 99 12.7 194/95(139) NSR 0 (11) 9(A) , No pain 17:11:12 78 15 100 9 195/90(137) NSR 0 (11) 9(A) , No pain Medications Time Medication Route Dose Verified Delivered Reason Notes E ffectiveness by by 14:38:14 Heparin Flush added 3 bags Janusz Boudreaux used for Bag to Maria Sifuentes MD procedure (1000units/500ml field MURPHY NS) 14:38:36 Lidocaine 1% added 20 ml Janusz Boudreaux used for with Epi to Maria Sifuentes MD procedure field MURPHY 14:38:49 Versed I.V. 1 mg Janusz Rutledge for Jean Pierre Sifuentes RN sedation 14:39:14 Fentanyl I.V. 50 mcg Janusz Rutledge for Jean Pierre Sifuentes RN sedation 14:39:28 Benadryl I.V. 25 mg Janusz Karen for Malcolm Sifuentes RN sedation 14:40:27 ancef 2gm Janusz Maty Jean Pierre Sifuentes RN MD 14:42:49 Benadryl I.V. 25 mg Janusz Karen for Izabella Sifuenteser RN sedation 14:43:01 Fentanyl I.V. 50 mcg Janusz Maty for Lani Sifuentesr RN sedation MD 14:43:12 Versed I.V. 1 mg Janusz Amty for Lani Sifuentesr RN sedation MD 14:47:11 Versed I.V. 1 mg Janusz Maty for Burddanielle, Jean Pierre RN sedation MD 14:47:19 Fentanyl I.V. 50 mcg Janusz Maty for Maria, Jean Pierre RN sedation 14:55:30 Fentanyl I.V. 50 mcg Janusz Maty for Maria, Jean Pierre RN sedation MD 14:55:39 Versed I.V. 1 mg Janusz Maty for Maria, Jean Pierre RN sedation MD 15:08:44 Versed I.V. 1 mg Janusz Maty for Lani Sifuentesr RN sedation MD 15:08:53 Fentanyl I.V. 50 mcg Janusz Maty for Maria Jean Pierre RN sedation MD 15:25:26 Versed I.V. 1 mg Janusz Maty for Maria Jean Pierre RN sedation MD 15:25:36 Fentanyl I.V. 50 mcg Janusz Maty for Maria Jean Pierre RN sedation MD 16:03:15 Heparin Bolus I.V. 3000units Janusz Maty Per Jean Pierre Sifuentes RN physician MD 16:34:18 Fentanyl I.V. 50 mcg Janusz Maty for Jean Pierre Sifuentes RN sedation 16:41:41 Fentanyl I.V. 50 mcg Janusz Maty for Maria Jean Pierre RN sedation MD 16:50:14 Heparin Bolus I.V. 1000units Janusz Maty Per Jean Pierre Sifuentes RN physician MD Procedure Log Time Note 13:39:30 Use device set IR Diagnostic 14:20:37 DOC .035 wire ([id number]) opened to sterile field. 14:20:38 SHEATH 6FR Eolia (EOK750) opened to sterile field. 14:20:39 Micropuncture VSI 4FR kit opened to sterile field. 14:20:40 Tegaderm 4 x 4 (1626W) opened to sterile field. 14:20:40 Sterile Angiographic Pack opened to sterile field. 14:20:42 Bag Decanter () opened to sterile field. 14:21:18 - 14:21:21 Time tracking: Regular hours (M-F 7:00 - 5:00) 14:22:42 Plan of Care:Hemodynamics will remain stable., Cardiac rhythm will remain stable., Comfort level will be maintained., Respiratory function will remain adequate., Patient/ family verbilizes understanding of procedure., Procedure tolerated without complication., Recovers from procedure without complications.. 14:22:55 Vital chart was started 14:22:58 Patient received from Med/Surg to IR Alert and oriented. Tansferred to table in Supine position. 14:23:02 Signed procedure consent form obtained from patient. 14:23:04 Correct patient and procedure confirmed by team. 14:23:05 ECG and BP/O2 sat monitors applied to patient. 14:23:07 Baseline sample Acquired. 14:23:08 Full Disclosure recording started 14:23:08 - 14:23:16 H&P Date Dictated: 03/15/2019 Within 30 days and on chart.. 14:23:20 Pre-procedure instructions explained to patient. 14:23:21 Pre-op teaching completed and patient verbalized understanding. 14:23:23 Family in waiting room. 14:23:25 Patient NPO since Midnight. 14:23:34 Patient allergic to Aspirin 14:23:41 Is the patient allergic to Iodine/contrast media? No. 14:23:50 Is patient on blood thinner?Yes 14:23:54 ACC The patient was administered the following blood thiners within the last 24 hours: Coumadin 14:24:02 ACC The patient was administered the following blood thiners within the last 24 hours: ACCLovenox 14:24:06 Patient diabetic? No. 14:24:09 - 14:24:10 ----Pre-sedation anethsthesia assessment.---- 14::14 Previous problem with sedation/anesthesia? No ? 14::18 Snore? Yes 14::23 Sleep apnea? No 14::35 Deviated septum? No 14::39 Opens mouth fully? Yes 14:24:41 Sticks out tongue? Yes 14::53 Airway obstruction? No ? 14::57 Dentures? No ? 14:25:11 IV patent on arrival in right forearm with D5/.45%NaCl at [facility]. 14:25:22 Left chest area was prepped with chlora-prep and draped in sterile fashion 14::37 Left Brachial area was prepped with chlora-prep and draped in sterile fashion 14::39 - 14:38:14 Heparin Flush Bag (1000units/500ml NS) 3 bags added to field was administered by Janusz Sifuentes MD; used for procedure; :38:36 Lidocaine 1% with Epi 20 ml added to field was administered by Janusz Sifuentes MD; used for procedure; ::49 Versed 1 mg I.V. was administered by Maty Greenfield RN; for sedation; 14:39:14 Fentanyl 50 mcg I.V. was administered by Maty Greenfield RN; for sedation ; 14:39:28 Benadryl 25 mg I.V. was administered by Karen Fowler RN; for sedation; 14:40:27 ancef 2gm was administered by Maty Greenfield RN; ; 14:42:49 Benadryl 25 mg I.V. was administered by Karen Fowler RN; for sedation; 14:43:01 Fentanyl 50 mcg I.V. was administered by Maty Greenfield RN; for sedation ; 14:43:12 Versed 1 mg I.V. was administered by Maty Greenfield RN; for sedation; 14:43:18 Physician arrived 14:43:18 --------ALL STOP TIME OUT------ 14:43:19 Final Timeout: patient, procedure, and site verified with staff and physician. All members of the team are in agreement. 14:44:00 Fire Safety Assessment: A--An alcohol-based skin anteseptic being used preoperatively., C--Open oxygen or nitrous oxide is being used. 14:44:09 Procedure started. 14:44:18 Local anesthetic to Chest area with Lidocaine 1% by Janusz Sifuentes MD.INITIAL ACCESS ONLY 14:47:11 Versed 1 mg I.V. was administered by Maty Greenfield RN; for sedation; 14:47:19 Fentanyl 50 mcg I.V. was administered by Maty Greenfield RN; for sedation ; 14:55:30 Fentanyl 50 mcg I.V. was administered by Maty Greenfield RN; for sedation ; 14:55:39 Versed 1 mg I.V. was administered by Maty Greenfield RN; for sedation; 15:08:44 Versed 1 mg I.V. was administered by Maty Greenfield RN; for sedation; 15:08:53 Fentanyl 50 mcg I.V. was administered by Maty Greenfield RN; for sedation ; 15:25:26 Versed 1 mg I.V. was administered by Maty Greenfield RN; for sedation; 15:25:36 Fentanyl 50 mcg I.V. was administered by Maty Greenfield RN; for sedation ; 15:45:31 GLIDE CATHETER 5FR ANGLED 65cm (CG507) opened to sterile field. 15:45:34 GLIDE WIRE ANGLE 180cm (FH4227) opened to sterile field. 15:47:02 TORQUE DEVICE PLASTIC .038 ( TD01) opened to sterile field. 15:47:27 SUTURE L27IN 2-0 MCRYL LORI MO opened to sterile field. 15:47:28 SUTURE L27IN 2-0 MCRYL LORI MO opened to sterile field. 15:47:29 SUTURE L27IN 2-0 MCRYL LORI MO opened to sterile field. 15:48:45 ROADRUNNER .035 145 glide wire (Q03566) opened to sterile field. 16:01:13 SHEATH 6FR Destination (RSR01) opened to sterile field. 16:01:20 CONN 180cm wire (K69418) opened to sterile field. 16:03:15 Heparin Bolus 3000units I.V. was administered by Maty Greenfield RN; Per physician; 16:12:41 INFLATOR BasixTOUCH (SI1560) opened to sterile field. 16:13:40 Inflate balloon Inflation number: 1 A Evercross 6 x 6 x 135 Balloon ([id number]) was prepped and advanced across the Undefined1 , then inflated . 16:20:36 CONN 260 wire (T66424) opened to sterile field. 16:21:29 Inflate balloon Inflation number: 2 A EVERCROSS 8 X 80 X 135 BALLOON ([id number]( was prepped and advanced across the Undefined1 , then inflated . 16:33:11 Inflate balloon Inflation number: 3 A EVERCROSS 10 X 60 X 135 BALLOOON ([id number]) was prepped and advanced across the Undefined1 , then inflated . 16:34:18 Fentanyl 50 mcg I.V. was administered by Maty Greenfield RN; for sedation ; 16:41:41 Fentanyl 50 mcg I.V. was administered by Maty Greenfield RN; for sedation ; 16:48:39 SHEATH 7FR Destination (RSR04) opened to sterile field. 16:50:14 Heparin Bolus 1000units I.V. was administered by Maty Greenfield RN; Per physician; 17:05:57 Procedure ended.(Physican Out) 17:06:43 Fluoroscopy time 19.00 minutes. 17:06:49 Fluoroscopy dose: 2587 mGy 17:06:49 Flurop Dose total: 2587 17:06:54 Contrast amount:Isovue 300 145ml. 17:06:57 Procedure and supply charges have been captured, reviewed, submitted an d are correct. 17:09:02 Report given to Outpatients. 17:13:03 Patient transfered to Med/Surg with Bed. 17:13:27 Vital chart was stopped Intervention Summary Intervention Notes Time ActionType Lesion and Equipment Used Action# Pressure Duration Attributes 16:13:40 Inflate Undefined1 Evercross 6 x 6 1 0 00:00 balloon x 135 Balloon ([id number]) 16:21:29 Inflate Undefined1 EVERCROSS 8 X 2 0 00:00 balloon 80 X 135 BALLOON ([id number]( 16:33:11 Inflate Undefined1 EVERCROSS 10 X 3 0 00:00 balloon 60 X 135 BALLOOON ([id number]) Device Usage Item Name Manufacture Quantity Catalog Number Hospital Part Current M inimal Lot# / Charge Number Stock Stock Serial# Code DOC .035 wire Cook Medical 1 [id number] 073835 070132 5 ([id number]) SHEATH 6FR Terumo 1 KTR356 084641 746804 770738 4 0 Eolia (PFZ568) Micropuncture VSI VASCULAR 1 7266V 622542 198966 5 VSI 4FR kit SOLUTIONS Tegaderm 4 x 4 3M 1 1626W 225391 716166 170867 5 (1626W) Sterile Cardinal 1 [id number] 406367 296122 5 Angiographic Health Pack Bag Decanter Microtek 1 2001S 876803 50322 572220 5 (2001S) Medical Inc. GLIDE CATHETER Terumo 1 CG507 468845 327847 5 5FR ANGLED 65cm (CG507) GLIDE WIRE Terumo 1 XG2451 578093 243981 921407 5 ANGLE 180cm (TD2108) TORQUE DEVICE Kimberton 1 TD01 831931 329078 119126 5 PLASTIC .038 ( Scientific TD01) SUTURE L27IN Ethicon 3 [id number] 210407 651289 5 2-[address] LOR[address] MO ROADRUNNER .035 Cook Medical 1 X38229 629529 678197 843094 5 [id number] 145 glide wire (D89603) SHEATH 6FR Terumo 1 RSR01 512170 10763 615991 5 Destination (RSR01) CONN 180cm Cook Medical 1 A31047 893447 076879 5 wire (V04455) INFLATOR Merit 1 KH2524 725908 140723 277566 5 BinOptics Medical (UH8873) Evercross 6 x 6 Medtronic 1 [id number] 795501 215237 5 x 135 Balloon ([id number]) CONN 260 wire Cook Medical 1 B73781 843874 24910 186326 5 7420402 (X60177) EVERCROSS 8 X Medtronic 1 [id number] 190658 158603 1 80 X 135 BALLOON ([id number]( EVERCROSS 10 X Medtronic 1 [id number] 894911 711918 1 60 X 135 BALLOOON ([id number]) SHEATH 7FR Terumo 1 RSR04 774965 951440 143585 5 Destination (RSR04) Signature Audit [place] Stage Time Signature Unsigned Intra-Procedure 03/15/2019 Ashley Bradshaw 5:13:23 PM RT(R) Signatures Monitor : Ashley Bradshaw RT Signature : Date : Time : [place] [id number] [place] [address]
[~2019-03-14 09:13] MED LIST changes: +COUMADIN5 MG PO; +FLORAJEN3 CAPS460 MG PO; +LEVOFLOXACIN500 MG PO; +LOVENOX INJ100 MG/ML SC; +PROTONIX40 MG PO; +REGLAN10 MG PO
[2019-03-14 10:10] LABS: INR 2.36 (0.85-1.17); PROTIME 25.1 SECONDS (11.6-15.0)
[2019-03-14 10:15] LABS: HEMOGLOBIN 11.8 g/dL (13.5-17.5); MCH 27.3 pg (26.0-34.0); MCHC 33.7 g/dL (31.0-37.0); MCV 80.8 fL (80.0-100.0); MEAN PLATELET VOLUME 10.3 fL (7.4-10.4); PLATELET COUNT 484 10x3/uL (130-400); RBC 4.33 10x6/uL (4.20-6.10); RDW 16.1 % (11.5-14.5); WBC 18.2 10x3/uL (4.8-10.8)
[2019-03-14 10:35] LABS: ALBUMIN 2.5 g/dL (3.4-5.0); ANION GAP 12.3 mmol/L (8-16); BILIRUBIN - TOTAL 0.42 mg/dL (0.2-1.3); CALCIUM 8.8 mg/dL (8.5-10.1); CARBON DIOXIDE 24.6 mmol/L (21.0-32.0); CREATININE - SERUM 1.3 mg/dL (0.6-1.3); POTASSIUM - SERUM 3.9 mmol/L (3.5-5.1)
[2019-03-14 11:19] LABS: APPEARANCE HAZY (CLEAR); BILIRUBIN NEGATIVE (NEGATIVE); COLOR YELLOW (YELLOW); GLUCOSE NEGATIVE (NEGATIVE); KETONE NEGATIVE (NEGATIVE); NITRITE NEGATIVE (NEGATIVE); PROTEIN NEGATIVE (NEGATIVE); SPECIFIC GRAVITY 1.015 (1.005-1.020); UROBILINOGEN NORMAL (NORMAL)
[2019-03-14 11:20] LABS: AMORPHOUS SEDIMENT <1+ /lpf (NONE SEEN); BACTERIA MODERATE /hpf (NONE SEEN); CALCIUM OXALATE CRYSTALS RARE /hpf (NONE SEEN); EPITHELIAL CELLS OCC /hpf (0-5); MUCUS <1+ /lpf (NONE SEEN); WHITE CELLS - URINE 0-5 /hpf (0-5)
--- NOTE | 2019-03-14 11:21 | NUR ---
REPORT TO DAMEON castro. NEVILLE GOING TO ROOM 2215.
[2019-03-14 11:46] LABS: ANISOCYTOSIS OCC; EOSINOPHILS 2 % (0-7); LYMPHOCYTES 15 % (15-50); MONOCYTES 23 % (2-11); NEUTROPHILS 57 % (40-80); PLATELET ESTIMATE INCREASED
--- NOTE | 2019-03-14 12:30 | NUR ---
ASSESSMENT PER FLOW SHEET. PT IS WITHOUT DISTRESS.FAMILY AT BEDSIDE.ORIENTATION TO ROOM.CALL LIGHT IN REACH
[2019-03-14 12:57] VITALS: BP 144/92; BMI 27.2
[2019-03-14 15:24] VITALS: Ht 180.3 cm; Wt 88.5 kg
[2019-03-14 16:24] VITALS: BP 114/93
--- NOTE | 2019-03-14 18:59 | NUR ---
WITHOUT EMESIS. AT BEDSIDE.PT IS WITHOUT DISTRESS.CONT PLAN OF CARE
--- NOTE | 2019-03-14 20:45 | NUR ---
RESTING QUEITLY WITH NO DISTRESS NOTED. RESP UNLABORED. LEFT ARM RED AND EDEMATOUS. UP ON PILLOW FOR COMFORT. IV TO RIGHT HAND INTACT WITHOUT REDNESS OR NATALIE ANOTED. CL IN REACH
[2019-03-14 22:07] VITALS: BP 143/89
[2019-03-15 01:27] VITALS: BP 154/80
[2019-03-15 05:45] VITALS: BP 144/95
[2019-03-15 06:38] LABS: PROTIME 29.4 SECONDS (11.6-15.0)
[2019-03-15 06:57] LABS: ANION GAP 11.9 mmol/L (8-16); BILIRUBIN - TOTAL 0.4 mg/dL (0.2-1.3); CALCIUM 8.1 mg/dL (8.5-10.1); CARBON DIOXIDE 23.1 mmol/L (21.0-32.0); CREATININE - SERUM 1.1 mg/dL (0.6-1.3); PROTEIN - SERUM 4.7 g/dL (6.4-8.2)
[2019-03-15 07:02] LABS: APTT 108.8 SECONDS (22.8-39.4); INR 2.89 (0.85-1.17)
[2019-03-15 07:47] LABS: BASOPHILS 0.5 % (0-2); EOSINOPHILS 0.3 % (0-7); HEMATOCRIT 31.3 % (42.0-54.0); HEMOGLOBIN 10.3 g/dL (13.5-17.5); IMMATURE GRANULOCYTES 2.9 % (0-5); LYMPHOCYTES 11.9 % (15-50); MCH 27.2 pg (26.0-34.0); MCHC 32.9 g/dL (31.0-37.0); MCV 82.6 fL (80.0-100.0); MEAN PLATELET VOLUME 10.1 fL (7.4-10.4); MONOCYTES 20.1 % (2-11); NEUTROPHILS 64.3 % (40-80); PLATELET COUNT 352 10x3/uL (130-400); RBC 3.79 10x6/uL (4.20-6.10); RDW 16.3 % (11.5-14.5)
--- NOTE | 2019-03-15 08:00 | NUR ---
ASSESSMENT PER FLOW SHEET. PT IS WITHOUT DISTRESS.NPO FOR PROCEDURE TODAY.MONITOR FOR NEEDS.
[2019-03-15 09:39] VITALS: BP 169/86
--- NOTE | 2019-03-15 10:52 | NUR ---
SPOKE WITH MICHELLE AND LILIANA IN IR TO INFORM HER FFP WAS NOT READY. MICHELLE SAID HE HAD TO BE TYPED AND CROSSED FIRST.
[2019-03-15 12:56] VITALS: BP 169/90
[2019-03-15 13:58] LABS: APTT 72.5 SECONDS (22.8-39.4); INR 1.95 (0.85-1.17); PROTIME 21.6 SECONDS (11.6-15.0)
--- NOTE | 2019-03-15 14:12 | NUR ---
TO IR TN BED.FFP COMPLETED BY LYNN SOLOMON RN.PT IS WITHOUT REACTIONS.
--- NOTE | 2019-03-15 17:45 | NUR ---
BACK IN ROOM FROMIR. PT IS AWAKE AND TALKING. REQUEST MEDS FOR BACKPAIN. DRESSING TO LEFT CHEST AND LEFT ARM CDI. AT BEDSIDE.MONITOR
--- NOTE | 2019-03-15 18:51 | NUR ---
PAIN CONTROLLED. LEFT UPPER ARM DRESSING REMAINS CDI.SITE IS WITHOUT BLEEDING OR SWELLING. CONT PLAN OF CARE
--- NOTE | 2019-03-15 20:30 | NUR ---
RESTING QUEITLY WITH NO COMPLAITNS VOICED. RESP UNLABORED.DRESSING TO LEFT ARM INTACT WITHOUT DRAINAGE NOTED. LUE CONTINUES TO HAVE REDNESS AND EDEMA. AT BEDSIDE. CL IN REACH
[2019-03-15 21:10] VITALS: BP 178/97
[2019-03-16 01:14] VITALS: BP 164/80
--- NOTE | 2019-03-16 05:00 | NUR ---
I have reviewed this patient and I concur with the Shift Assessment completed by the Licensed Practical Nurse today this shift.
[2019-03-16 05:38] VITALS: BP 153/84
[2019-03-16 06:02] LABS: BASOPHILS 0.4 % (0-2); HEMATOCRIT 27.3 % (42.0-54.0); HEMOGLOBIN 8.9 g/dL (13.5-17.5); IMMATURE GRANULOCYTES 2.2 % (0-5); MCH 26.8 pg (26.0-34.0); MCHC 32.6 g/dL (31.0-37.0); MCV 82.2 fL (80.0-100.0); MEAN PLATELET VOLUME 9.8 fL (7.4-10.4); MONOCYTES 23.8 % (2-11); NEUTROPHILS 58.6 % (40-80); PLATELET COUNT 331 10x3/uL (130-400); RBC 3.32 10x6/uL (4.20-6.10); RDW 16.2 % (11.5-14.5)
[2019-03-16 06:08] LABS: WBC 10.6 10x3/uL (4.8-10.8)
[2019-03-16 06:47] LABS: ANION GAP 13.4 mmol/L (8-16); CALCIUM 8.1 mg/dL (8.5-10.1); CARBON DIOXIDE 24.2 mmol/L (21.0-32.0); CREATININE - SERUM 1.2 mg/dL (0.6-1.3); POTASSIUM - SERUM 3.6 mmol/L (3.5-5.1)
--- NOTE | 2019-03-16 08:00 | NUR ---
PATIENT IN BED WITH IV INTACT. NO COMPLAINTS OR SIGNS OF DISTRESS. FAMILY AT BEDSIDE. CALL LIGHT WITHIN REACH.
[2019-03-16 09:40] VITALS: BP 210/91
[2019-03-16 13:03] VITALS: BP 158/89
[2019-03-16 14:04] LABS: INR 2.51 (0.85-1.17); PROTIME 26.3 SECONDS (11.6-15.0)
[2019-03-16 16:26] VITALS: BP 204/97
--- NOTE | 2019-03-16 18:55 | NUR ---
PATIENT IN BED WITH NO COMPLAINTS OR SIGNS OF DISTRESS. FAMILY AT BEDSIDE. CALL LIGHT.
[2019-03-16 20:26] VITALS: BP 169/79
[2019-03-17 00:48] VITALS: BP 176/76
[2019-03-17 05:17] VITALS: BP 158/86
[2019-03-17 05:17] LABS: CALC OSMOLALITY 273 mosm/kg (275-300); CALCIUM 8.4 mg/dL (8.5-10.1); CARBON DIOXIDE 25.6 mmol/L (21.0-32.0); CHLORIDE - SERUM 104 mmol/L (98-107); GLUCOSE 116 mg/dL (74-106); POTASSIUM - SERUM 3.5 mmol/L (3.5-5.1); SODIUM 138 mmol/L (136-145); eGFR NON AFRICAN AMERICAN 81 mL/min (90-120)
[2019-03-17 05:21] LABS: HEMATOCRIT 27.1 % (42.0-54.0); HEMOGLOBIN 8.9 g/dL (13.5-17.5); MCHC 32.8 g/dL (31.0-37.0); MCV 82.1 fL (80.0-100.0); MEAN PLATELET VOLUME 10.1 fL (7.4-10.4); PLATELET COUNT 352 10x3/uL (130-400); RDW 16.1 % (11.5-14.5); UREA NITROGEN 4 mg/dL (7-18); WBC 10.3 10x3/uL (4.8-10.8)
[2019-03-17 05:31] LABS: INR 2.23 (0.85-1.17)
[2019-03-17 05:48] LABS: LYMPHOCYTES 15 % (15-50); MONOCYTES 26 % (2-11); NEUTROPHILS 58 % (40-80); PLATELET ESTIMATE NORMAL
[2019-03-17 08:08] VITALS: BP 201/94
[2019-03-17 09:34] VITALS: BP 129/89
[2019-03-17] MEDS ORDERED: LEVOFLOXACIN500 MG PO (11:01)
[2019-03-17] MEDS ORDERED: LISINOPRIL10 MG PO (11:02)
[2019-03-17] MEDS ORDERED: NORVASC5 MG PO (11:02)
--- NOTE | 2019-03-17 11:20 | NUR ---
PT ALERT X 4. BREATH SOUNDS CLEAR BILAT. IV TO RIGHT HAND, PATENT, DRESSING CDI. LEFT ARM +3 EDEMA, ELEVATED. DRESSING TO LEFT UPPER ARM CDI. INCISION TO RIGHT CHEST WELL APPROXIMATED, STERI-STRIPS IN PLACE. PERITONEAL DIALYSIS CATHETER TO LLQ OF ABDOMEN. PT REPORTING NO PAIN AT THIS TIME. BED LOW, CALL LIGHT IN REACH. NO OTHER NEEDS AT THIS TIME.
--- NOTE | 2019-03-17 11:40 | MORECARE ---
CASE MANAGEMENT DISCHARGE SUMMARY PATIENT: KRISTINE ERNANDEZ UNIT: [id number] ADM DATE: 03/14/19 AGE: 63 : 59 SEX: M ROOM/BED: D.2215 AUTHOR: DEEPALI CALVO PHYSICIAN: REFERRING PHYSICIAN: TEODORO HIDALGO MD DATE OF SERVICE: 03/17/19 Discharge Plan Patient Name: KRISTINE ERNANDEZ Facility: [facility]:[place] : 1955 Planned Disposition: Home Anticipated Discharge Date: Discharge Date: Expected LOS: Initial Reviewer: [email or web address] Initial Review Date: 03/14/2019 Generated: 03/17/19 12:39 pm Comments DCP- Discharge Planning Updated by [email or web address]: Yissel Argueta on 03/17/19 10:[address] Patient Name: KRISTINE ERNANDEZ Admission Status: ER Accout number: [id number] Admission Date: 03-14-2019 : 1955 Admission Diagnosis:ACUTE EMBOLISM AND THROMBOSIS OF DEEP VEINS OF L UP EXT Attending: TEODORO HIDALGO Current LOS: 3 Anticipated DC Date: Planned Disposition: Home Primary Insurance: [employer] OUT OF STATE Discharge Planning Comments: CM MET WITH PATIENT AND HIS ABOUT DC PLANNING/NEEDS. PLANS TO DC TO HOME TODAY. DENIES ANY NEEDS AT THIS TIME. [facility] PCP IS SUZY AND PHARMACY IS [facility] ON [address]. CM TO FOLLOW AND ASSIST. Pull Worker: Yissel Argueta Patient Name: KRISTINE ERNANDEZ Page 31687 at 1140 All edits/amendments must be made on the electronic document DICTATION DATE: 03/17/19 1139 PUDDLER HELPER: KARI 03/17/19 1139 RPT#: [id number] DC DATE: STATUS: ADM IN [facility] [address] [place] [address] END OF REPORT
[2019-03-17 12:24] VITALS: BP 128/77
--- NOTE | 2019-03-17 13:45 | NUR ---
DISCHARGE PAPERWORK SIGNED, ALL QUESTIONS ANSWERED. IV TO RIGHT HAND DC'D, TIP INTACT. ESCORTED OUT BY WHEELCHAIR.
--- NOTE | 2019-03-18 11:26 | MORECARE ---
CASE MANAGEMENT DISCHARGE SUMMARY PATIENT: KRISTINE ERNANDEZ UNIT: [id number] ADM DATE: 03/14/19 AGE: 63 : 59 SEX: M ROOM/BED: D.2215 AUTHOR: DEEPALI CALVO PHYSICIAN: REFERRING PHYSICIAN: TEODORO HIDALGO MD DATE OF SERVICE: 03/18/19 Discharge Plan Patient Name: KRISTINE ERNANDEZ Facility: [facility]:[place] : 1955 Planned Disposition: Home Anticipated Discharge Date: Discharge Date: 03/17/2019 Expected LOS: Initial Reviewer: [email or web address] Initial Review Date: 03/14/2019 Generated: 03/18/19 12:26 pm Comments DCP- Discharge Planning Updated by [email or web address]: Yissel Argueta on 03/17/19 10:[address] Patient Name: KRISTINE ERNANDEZ Admission Status: ER Accout number: [id number] Admission Date: 03-14-2019 : 1955 Admission Diagnosis:ACUTE EMBOLISM AND THROMBOSIS OF DEEP VEINS OF L UP EXT Attending: TEODORO HIDALGO Current LOS: 3 Anticipated DC Date: Planned Disposition: Home Primary Insurance: [employer] OUT OF STATE Discharge Planning Comments: CM MET WITH PATIENT AND HIS ABOUT DC PLANNING/NEEDS. PLANS TO DC TO HOME TODAY. DENIES ANY NEEDS AT THIS TIME. STATES PCP IS SUZY AND PHARMACY IS RK ON [address]. CM TO FOLLOW AND ASSIST. Billing Collections Specialist: Yissel Ghosh DP export: 03/17/19 10:40 a Patient Name: KRISTINE ERNANDEZ Page 69354 at 1126 All edits/amendments must be made on the electronic document DICTATION DATE: 03/18/19 1126 DERRICK BOAT LEVERMAN: KARI 03/18/19 1126 RPT#: [id number] DC DATE:03/17/19 STATUS: DIS IN [facility] [address] [place] [address] END OF REPORT
== END 2019-03-17 15:28 | disposition home or self-care (01) | DRG 271 ==
LOC: D.ER 09:13 → D.MS 11:13
PROVIDERS: Family Medicine; General Practice; Internal Medicine Hematology & Oncology; ADMIT Internal Medicine Nephrology; ATTEND Internal Medicine Nephrology
PROC: 05C43ZZ Extirpation of Matter from Left Innominate Vein, Percutaneous Approach (ICD-10-PCS; 2019-03-15)
PROC: 0JPT0WZ Removal of Totally Implantable Vascular Access Device from Trunk Subcutaneous Tissue and Fascia, Open Approach (ICD-10-PCS; 2019-03-15)
PROC: 05C63ZZ Extirpation of Matter from Left Subclavian Vein, Percutaneous Approach (ICD-10-PCS; principal; 2019-03-15 14:45)
DX: T82.898A Other specified complication of vascular prosthetic devices, implants and grafts, initial encounter (principal); I82.622 Acute embolism and thrombosis of deep veins of left upper extremity; C25.9 Malignant neoplasm of pancreas, unspecified; R18.0 Malignant ascites; D68.59 Other primary thrombophilia; N39.0 Urinary tract infection, site not specified; D64.9 Anemia, unspecified; I10 Essential (primary) hypertension; E78.5 Hyperlipidemia, unspecified; K21.9 Gastro-esophageal reflux disease without esophagitis

== ENCOUNTER 2019-03-20 10:32 | Inpatient (IN) | payer BC ==
[~2019-03-20] VITALS: Ht 180.3 cm; Wt 90.7 kg
--- NOTE | ~2019-03-20 | HEMODYNAMI ---
PATIENT:KRISTINE ERNANDEZ MEDICAL RECORD: [id number] : 59 LOCATION:[facility] ADMISSION DATE: 03/20/19 Generatedon:03/20/201915:50 Patient name: KRISTINE ERNANDEZ Patient #: [id number] SSN: : 1955 Date of study: 03/20/2019 Page: Of Hemodynamic Procedure Report Patient Data Patient Demographics Procedure consent was obtained First Name: KRISTINE Gender: Male Last Name: AWAIS : 1955 Middle Initial: LILIANA Age: 63 year(s) Patient #: [id number] Race: Unknown Additional ID: [id number] Contact details [address]: [address] [place] [address] State: [place] City: [place] Zip code: [address] Past Medical History Allergies Allergen Reaction Date Comments Reported Aspirin 03/09/2019 Aspirin 03/15/2019 Aspirin 03/20/2019 Admission Admission Data Admission Date: 03/20/2019 Admission Time: 11:47 Room #: [id number] Height (in.): 71 BSA: 2.06 (m2) Height (cm.): 180.34 BMI: 26.5 (kg/m2) Weight (lbs.): 190 Weight (kg.): 86.18 Procedure Procedure Types Cath Procedure Peripheral Cath Diagnostic Procedure Helmet Hat Brim Cutter Peripheral Procedures Venography Extremity Left Upper Ext. Venagram Procedure Description Procedure Date Procedure Date: 03/20/2019 Procedure Start Time: 14:23 Procedure Staff Name Function Baldev Damian MD Performing Physician Ashley Bradshaw RT Watch Inspector Maty Greenfield RN Nurse Nahum Spangler RT Scrub Procedure Data Cath Procedure Fluoroscopy Diagnostic fluoroscopy Total fluoroscopy dose: 389 dose: 389 mGy mGy Contrast Material Contrast Material Type Amount (ml) Isovue 300 85 Procedure Medications Medication Administration Route Dosage Heparin Flush Bag added to field 3 bags (1000units/500ml NS) Lidocaine 1% added to field 20 Versed I.V. 1 mg Fentanyl I.V. 50 mcg Benadryl I.V. 25 mg Versed I.V. 1 mg Fentanyl I.V. 50 mcg Heparin Bolus I.V. 4000 units Versed I.V. 1 mg Fentanyl I.V. 50 mcg Heparin Bolus I.V. 2000 units Versed I.V. 1 mg Fentanyl I.V. 50 mcg Demerol I.V. 25 mg Vancomycin I.V.P.B 1 g Hemodynamics Rest BSA: 2.06 (m2) O2 Consumption: Estimated: 249.65 (ml/min) O2 Consumption indexed : Estimated:121.19 (ml/min/m) Heart Rate: 80 (bpm) Snapshots Pre Cath Intra NCS Post Cath Vital Signs Time Heart Resp SPO2 etCO2 NIBP (mmHg) Rhythm Pain Sedation Rate (ipm) (%) (mmHg) Status Level (bpm) 14:03:06 100 20 87 25.5 144/76(104) NSR 0 (11) 10(A) , No pain 14:07:51 98 29 95 24 127/89(108) NSR 0 (11) 10(A) , No pain 14:11:59 98 30 96 26.2 125/81(95) NSR 0 (11) 10(A) , No pain 14:16:07 98 18 95 24.7 124/82(103) NSR 0 (11) 10(A) , No pain 14:20:13 98 35 94 25.5 129/84(101) NSR 0 (11) 10(A) , No pain 14:24:18 99 23 95 26.2 138/91(112) NSR 0 (11) 8(A) , No pain 14:28:32 98 19 93 9.7 121/73(93) NSR 0 (11) 8(A) , No pain 14:32:40 95 13 95 1.5 120/76(87) NSR 0 (11) 8(A) , No pain 14:36:48 96 24 93 10.5 131/78(94) NSR 0 (11) 8(A) , No pain 14:41:00 99 28 94 26.2 131/73(93) NSR 0 (11) 8(A) , No pain 14:45:12 100 23 95 24.7 126/74(92) NSR 0 (11) 8(A) , No pain 14:49:20 99 16 94 26.2 125/76(101) NSR 0 (11) 8(A) , No pain 14:53:30 93 31 90 14.2 126/73(109) NSR 0 (11) 8(A) , No pain 14:57:38 93 16 93 24 137/81(109) NSR 0 (11) 8(A) , No pain 15:01:49 93 15 94 0 138/79(104) NSR 0 (11) 8(A) , No pain 15:05:57 93 21 96 0 141/93(113) NSR 0 (11) 8(A) , No pain 15:10:11 92 14 98 0 147/82(103) NSR 0 (11) 8(A) , No pain 15:14:23 92 20 97 28.5 146/92(121) NSR 0 (11) 8(A) , No pain 15:18:35 93 27 97 23.2 152/98(131) NSR 0 (11) 8(A) , No pain 15:22:47 93 24 94 26.2 153/97(131) NSR 0 (11) 8(A) , No pain 15:26:59 96 27 94 25.5 162/101(129) NSR 0 (11) 8(A) , No pain 15:31:58 101 28 94 24.7 Measuring NSR 0 (11) 8(A) , No pain 15:32:24 101 27 94 28.5 167/107(144) NSR 0 (11) 8(A) , No pain 15:36:43 103 18 96 0 167/93(122) NSR 0 (11) 8(A) , No pain 15:41:01 99 16 96 14.2 150/97(123) NSR 0 (11) 10(A) , No pain 15:45:17 98 17 95 0 144/86(125) NSR 0 (11) 10(A) , No pain 15:49:27 99 21 95 27.7 164/104(134) NSR 0 (11) 10(A) , No pain Medications Time Medication Route Dose Verified Delivered Reason Notes Eff ectiveness by by 14:11:52 Heparin Flush added 3 Baldev De Paz used for Bag to bags Nati Damian procedure (1000units/500ml field MD MURPHY NS) 14:12:05 Lidocaine 1% added 20ml Baldev De Paz for local to vial Nati Damian anesthetic field MD MURPHY 14:24:18 Versed I.V. 1 mg Baldev Rutledge for Nati Jean Pierre RN sedation 14:24:29 Fentanyl I.V. 50 Baldev Rutledge for mcg Nati Jean Pierre RN sedation 14:24:45 Benadryl I.V. 25 mg Baldev Rutledge for Nati Jean Pierre RN sedation 14:27:46 Versed I.V. 1 mg Baldev Nunesody for Nati Jean Pierre RN sedation 14:27:55 Fentanyl I.V. 50 Baldev Maty for mcg Nati Jean Pierre RN sedation 14:30:51 Heparin Bolus I.V. 4000 Baldev Maty Per units Nati Garibayr RN physician 14:45:48 Versed I.V. 1 mg Baldev Rutledge for Nati Jean Pierre RN sedation 14:45:58 Fentanyl I.V. 50 Baldev Maty for mcg Nati Jean Pierre RN sedation 15:10:54 Heparin Bolus I.V. 2000 Baldev Maty Per units Nati Garibayr RN physician 15:11:11 Versed I.V. 1 mg Baldev Rutledge for Nati Jean Pierre RN sedation 15:12:57 Fentanyl I.V. 50 Baldev Maty for mcg Nati Jean Pierre RN sedation 15:30:46 Demerol I.V. 25 mg Baldev Rutledge Per Nati Greenfield RN physician 15:35:19 Vancomycin I.V.P.B 1 g Baldev Rutledge Per Nati Greenfield RN physician Procedure Log Time Note 13:40:04 Patient Height : 71 inches 13:40:09 Patient Weight : 190 lbs 13:40:14 Use device set IR Diagnostic 13:40:16 Tegaderm 4 x 4 ([id number]) opened to sterile field. 13:40:16 Sterile Angiographic Pack opened to sterile field. 13:40:17 Bag Decanter (2002S) opened to sterile field. 13:40:37 BENTSON 145cm wire ([id number]) opened to sterile field. 13:40:38 Micropuncture VSI 4FR kit opened to sterile field. 13:41:[address] [place] ([id number]) opened to sterile field. 13:54:15 Time tracking: Regular hours (M-F 7:00 - 5:00) 13:54:58 Plan of Care:Hemodynamics will remain stable., Cardiac rhythm will remain stable., Comfort level will be maintained., Respiratory function will remain adequate., Patient/ family verbilizes understanding of procedure., Procedure tolerated without complication., Recovers from procedure without complications.. 13:55:24 Patient received from Med/Surg to IR Alert and oriented. Tansferred to table in Supine position. 13:55:29 Signed procedure consent form obtained from patient. 13:55:31 Correct patient and procedure confirmed by team. 13:55:40 H&P Date Dictated: 03/20/2019 Within 30 days and on chart.. 13:55:42 Pre-procedure instructions explained to patient. 13:55:43 Pre-op teaching completed and patient verbalized understanding. 13:55:45 Family in waiting room. 13:55:52 Patient NPO since Midnight. 13:56:06 Patient allergic to Aspirin 13:56:21 Is the patient allergic to Iodine/contrast media? No. 13:56:27 - 13:56:48 ----Pre-sedation anethsthesia assessment.---- 13:56:53 Previous problem with sedation/anesthesia? No ? 13:56:56 Snore? Yes 13:56:58 Sleep apnea? No 13:57:01 Deviated septum? No 13:57:03 Opens mouth fully? Yes 13:57:05 Sticks out tongue? Yes 13:57:10 Airway obstruction? No ? 13:57:15 Dentures? No ? 13:57:17 - 13:57:43 IV patent on arrival in right hand with D5/.45%NaCl at KVO. 13:58:50 Left Brachial area was prepped with chlora-prep and draped in sterile fashion 13:59:12 - 14:01:49 ECG and BP/O2 sat monitors applied to patient. 14:02:02 Vital chart was started 14:02:18 Baseline sample Acquired. 14::22 Full Disclosure recording started 14:02:24 - 14:03:15 Baseline sample Acquired. 14:11:52 Heparin Flush Bag (1000units/500ml NS) 3 bags added to field was administered by Baldev Damian MD; used for procedure; 14:12:05 Lidocaine 1% 20ml vial added to field was administered by Baldev saucedo MD; for local anesthetic; 14:21:50 SHEATH 6FR [place] (MHN237) opened to sterile field. 14:22:06 - 14:22:10 Physician arrived 14:22:11 --------ALL STOP TIME OUT------ 14:22:12 Final Timeout: patient, procedure, and site verified with staff and physician. All members of the team are in agreement. 14:23:18 Procedure started. 14:23:28 Local anesthetic to left arm with Lidocaine 1% by Baldev Damian MD.INITIAL ACCESS ONLY 14:23:32 Venous access obtained using ultrasound guidance. 14:24:18 Versed 1 mg I.V. was administered by Maty Greenfield RN; for sedation; 14:24:29 Fentanyl 50 mcg I.V. was administered by Maty Greenfield RN; for sedation ; 14:24:45 Benadryl 25 mg I.V. was administered by Maty Greenfield RN; for sedation; 14:27:46 Versed 1 mg I.V. was administered by Maty Greenfield RN; for sedation; 14:27:55 Fentanyl 50 mcg I.V. was administered by Maty Greenfield RN; for sedation ; 14:30:51 Heparin Bolus 4000 units I.V. was administered by Maty Greenfield RN; Per physician; 14:31:38 AMPLATZ Super stiff 3mm J 260cm wire ([id number]) opened to sterile field. 14:31:52 CXI Catheter 90cm ([id number]) opened to sterile field. 14:32:00 ROADRUNNER .035 145 glide wire ([id number]) opened to sterile field. 14:41:47 Zelante 8Fr Angiojet catheter opened to sterile field. 14:45:48 Versed 1 mg I.V. was administered by Maty Greenfield RN; for sedation; 14:45:58 Fentanyl 50 mcg I.V. was administered by Maty Greenfield RN; for sedation ; 15:04:23 Inflate balloon Inflation number: 1 A EVERCROSS 10 X 60 X 135 BALLOOON ([id number]) was prepped and advanced across the Undefined1 , then inflated . 15:04:43 INFLATOR BasixTOUCH (SO8599) opened to sterile field. 15:10:41 Protege GPS 14 x 40 X 120 Stent ([id number]) was deployed across Undefined1 . 15:10:54 Heparin Bolus 2000 units I.V. was administered by Maty Greenfield RN; Per physician; 15:11:02 Inflate balloon Inflation number: 2 A ATLAS 14 x 4 x 75CM balloon ([id number]) was prepped and advanced across the Undefined1 , then inflated . 15:11:11 Versed 1 mg I.V. was administered by Maty Jean Pierre RN; for sedation; 15:12:57 Fentanyl 50 mcg I.V. was administered by Maty Greenfield RN; for sedation ; 15:30:46 Demerol 25 mg I.V. was administered by Maty Greenfield RN; Per physician; 15:34:30 Procedure ended.(Physican Out) 15:34:50 Flurop Dose total: 389 15:34:50 Fluoroscopy dose: 389 mGy 15:35:19 Vancomycin 1 g I.V.P.B was administered by Maty Greenfield RN; Per physician; 15:43:33 Contrast amount:Isovue 300 85ml. 15:43:36 Procedure and supply charges have been captured, reviewed, submitted an d are correct. 15:45:58 Report given to Med/Surg. 15:50:12 Vital chart was stopped Intervention Summary Intervention Notes Time ActionType Lesion and Equipment Used Action# Pressure Duration Attributes 15:04:23 Inflate Undefined1 EVERCROSS 10 X 60 1 0 00:00 balloon X 135 BALLOOON ([id number]) 15:10:41 Deploy self Undefined1 Protege GPS 14 x 1 expanding 40 X 120 Stent stent ([id number]) 15:11:02 Inflate Undefined1 ATLAS 14 x 4 x 2 0 00:00 balloon 75CM balloon ([id number]) Device Usage Item Name Manufacture Quantity Catalog Number [facility] Minimal Lot# / Charge Number Stock Stock Serial# Code Tegaderm 4 x 4 3M 1 [id number] 991 570 5 (1626W) Sterile Cardinal 1 [id number] 894259 998 122 5 Angiographic Pack Health Bag Decanter Microtek 1 198544 40609 986 162 5 () [employer] Inc. BENTSON 145cm wire Cook [employer] 1 Z70996 415829 999 642 5 ([id number]) Micropuncture VSI VSI VASCULAR 1 7266V 119776 999 268 5 4FR kit SOLUTIONS SHEATH [address] [facility] [address] Jonathan 1 052117 072103 679817 999 970 5 ([id number]) SHEATH 6FR Terumo 1 QBG428 347891 090187 995 483 40 [place] (LZB199) AMPLATZ Super [place] 1 [id number] 015321 999 968 5 stiff 3mm J 260cm Scientific wire ([id number]) CXI Catheter 90cm RegaloCard [facility] 1 Z28853 359818 862867 999 904 5 [id number] ([id number]) ROADRUNNER .035 [employer] 1 A43084 943073 717617 999 748 5 [id number] 145 glide wire ([id number]) Zelante 8Fr [place] 1 157815-966 089216 771160 999 987 5 Angiojet catheter Scientific EVERCROSS 10 X 60 Medtronic 1 [id number] 111975 999 996 1 X 135 BALLOOON ([id number]) INFLATOR Merit 1 CM5088 033365 288920 999 732 5 Perceptual Networks ([id number]) Protege GPS 14 x Medtronic 1 [id number] 470000 505332 999 995 5 40 X 120 Stent ([id number]) ATLAS 14 x 4 x Bard 1 [id number] 908877 966174 999 983 5 75CM balloon ([id number]) Signature Audit [place] Stage Time Signature Unsigned Intra-Procedure 03/20/2019 Ashley Bradshaw 3:50:09 PM RT(R) [facility] [address] [place] [address]
[~2019-03-20 10:32] MED LIST changes: +LISINOPRIL10 MG PO; +NORVASC5 MG PO
[2019-03-20 11:29] LABS: HEMATOCRIT 31.9 % (42.0-54.0); HEMOGLOBIN 10.6 g/dL (13.5-17.5); MCH 26.6 pg (26.0-34.0); MCHC 33.2 g/dL (31.0-37.0); MCV 79.9 fL (80.0-100.0); PLATELET COUNT 296 10x3/uL (130-400); RBC 3.99 10x6/uL (4.20-6.10); RDW 16.3 % (11.5-14.5); WBC 18.2 10x3/uL (4.8-10.8)
--- NOTE | 2019-03-20 11:30 | NUR ---
PT SITTING IN HIGH MICHELLE'S, HOB ADJUSTED FOR COMFORT. RESPIRATIONS EVEN AND UNLABORED. CALL LIGHT IN REACH. PT AWARE HE IS BEING ADMITTED TO [facility], AWAITING BED ASSIGNMENT. WILL CONTINUE TO MONITOR.
[2019-03-20 11:41] LABS: ALBUMIN 2.5 g/dL (3.4-5.0); ANION GAP 13.3 mmol/L (8-16); BILIRUBIN - TOTAL 0.37 mg/dL (0.2-1.3); CALCIUM 8.8 mg/dL (8.5-10.1); CARBON DIOXIDE 26.5 mmol/L (21.0-32.0); CREATININE - SERUM 1.1 mg/dL (0.6-1.3); POTASSIUM - SERUM 3.8 mmol/L (3.5-5.1)
[2019-03-20 11:45] LABS: INR 4.01 (0.85-1.17); PROTIME 38.2 SECONDS (11.6-15.0)
[2019-03-20 11:46] LABS: APTT 77.2 SECONDS (22.8-39.4)
--- NOTE | 2019-03-20 13:00 | NUR ---
REC'D TO ROOM 2203 AWAKE AND ALERT. RESP EVEN AND SLIGHTLY LABORED. DENIES ANY PAIN OR DISCOMFORT AT THIS TIME. SWOLLEN NOTED TO LUE WITH REDNESS NOTED AND REDNESS NOTED TO RLE WELL WITH SWELLING.IV NOTED RIGHT HAND. WILL CONTINUE TO OBSERVE FOR NEEDS. FAMILY AND C/L IN REACH AT BEDSIDE.
[2019-03-20 13:05] LABS: ANISOCYTOSIS OCC; LYMPHOCYTES 19 % (15-50); MONOCYTES 21 % (2-11); NEUTROPHILS 47 % (40-80); PLATELET ESTIMATE NORMAL; SPHEROCYTES OCC
[2019-03-20 13:41] VITALS: BP 132/80; BMI 27.9
--- NOTE | 2019-03-20 13:48 | NUR ---
OFF FLOOR AT THIS TIME FOR FOR PROCEDURE. FAMILY AT BEDSIDE
[2019-03-20 14:34] LABS: APPEARANCE HAZY (CLEAR); BACTERIA MODERATE /hpf (NONE SEEN); BILIRUBIN NEGATIVE (NEGATIVE); COLOR DK YELLOW (YELLOW); EPITHELIAL CELLS 0-5 /hpf (0-5); GLUCOSE NEGATIVE (NEGATIVE); KETONE SMALL mg/dL (NEGATIVE); MUCUS >1+ /lpf (NONE SEEN); NITRITE NEGATIVE (NEGATIVE); PROTEIN NEGATIVE (NEGATIVE); RED CELLS - URINE 0-5 /hpf (0-5); SPECIFIC GRAVITY 1.025 (1.005-1.020); WHITE CELLS - URINE OCC /hpf (0-5)
--- NOTE | 2019-03-20 14:54 | MORECARE ---
CASE MANAGEMENT DISCHARGE SUMMARY PATIENT: KRISTINE ERNANDEZ UNIT: [id number] ADM DATE: 03/20/19 AGE: 63 : 59 SEX: M ROOM/BED: D.2203 AUTHOR: DEEPALI CALVO PHYSICIAN: REFERRING PHYSICIAN: ROCHELLE CHONG MD DATE OF SERVICE: 03/20/19 Discharge Plan Patient Name: KRISTINE ERNANDEZ [facility] : 1955 Planned Disposition: Anticipated Discharge Date: Discharge Date: Expected LOS: Initial Reviewer: [email or web address] Initial Review Date: 03/20/2019 Generated: 03/20/19 3:53 pm Comments DCP- Discharge Planning Updated by [email or web address]: Emi Vides on 03/20/19 1:[address] attempted to see patient, but he was not in his room. He is in a procedure at this time. Patient Name: KRISTINE ERNANDEZ Page [id number] at 1454 All edits/amendments must be made on the electronic document DICTATION DATE: 03/20/19 145 FINANCIAL SYSTEMS ANALYST: KARI 03/20/19 145 RPT#: [id number] DC DATE: STATUS: ADM IN [facility] [address] [place] [address] END OF REPORT
--- NOTE | 2019-03-20 16:51 | NUR ---
DR. SOTO HERE ON TODAY REC'D NEW ORDERS FOR CT ABD WITH CONTRAST ADN CULTURE OF PERINEAL FLUIDS. FAMILY MADE AWARE OF NEW ORDERS.
[2019-03-20 20:00] VITALS: BP 150/80
--- NOTE | 2019-03-20 20:00 | NUR ---
PT REQUESTS FOR ASSISTANCE TO INITIATE RN BUILDING DILAUDID. OK TO ASSIST PER BUCKET WASH OPERATOR NURSE BASIL. RN BUILDING INFUSION SET UP AND VERIFIED WITH BASIL XIAO. PT THANKS ME FOR ASSISTANCE.
--- NOTE | 2019-03-20 20:01 | NUR ---
DIABETES NURSE DILAUDID INITIATED PER STAFF X2. PT INSTRUCTED ON USE AND VERBALIZED UNDERSTANDING. FAMILY AT BEDSIDE. CL IN REACH.
--- NOTE | 2019-03-20 20:20 | NUR ---
LYING IN BED TALKING TO FAMILY. ALERT AND ORIENTED X4. WILDLIFE PROTECTOR DILAUDID IN USE. RATES PAIN IN ABD AND FEET 6. TELEMETRY SHOWS SR WITH RATE OF 94. LUE IS EDEMATOUS, RED AND WARM TO TOUCH. PEDAL PULSES STRONG BILAT. STERISTRIPS NOTED TO LT CHEST WALL. ABD IS DISTENDED AND FIRM. NONPROD COUGH NOTED. O2 @ 2L/NC. NS @ 125 ML/HR INFUSING IN RT HAND WITHOUT DIFF. LT ARM RESERVE. NO DISTRESS. CL IN REACH.
--- NOTE | 2019-03-21 01:32 | NUR ---
HAS RESTED WELL TONIGHT. NO DISTRESS. STATES PAIN IS WELL CONTROLLED WITH DILAUDID SKIN THERAPIST. CL IN REACH.
[2019-03-21 04:00] VITALS: BP 155/74
--- NOTE | 2019-03-21 04:51 | NUR ---
LYING IN BED WITH EYES CLOSED. RESP EVEN AND NONLABORED. NO DISTRESS. SR ELEVATED X2. CL IN REACH.
[2019-03-21 06:11] LABS: BASOPHILS 1.2 % (0-2); EOSINOPHILS 0.9 % (0-7); HEMOGLOBIN 9.1 g/dL (13.5-17.5); IMMATURE GRANULOCYTES 6.7 % (0-5); LYMPHOCYTES 12.9 % (15-50); MCH 26.3 pg (26.0-34.0); MCHC 32.5 g/dL (31.0-37.0); MCV 80.9 fL (80.0-100.0); MEAN PLATELET VOLUME 10.9 fL (7.4-10.4); MONOCYTES 20.5 % (2-11); NEUTROPHILS 57.8 % (40-80); RBC 3.46 10x6/uL (4.20-6.10); RDW 16.5 % (11.5-14.5); WBC 13.8 10x3/uL (4.8-10.8)
[2019-03-21 06:17] LABS: PLATELET COUNT 225 10x3/uL (130-400)
[2019-03-21 06:19] LABS: ANION GAP 11.6 mmol/L (8-16); BILIRUBIN - TOTAL 0.41 mg/dL (0.2-1.3); CARBON DIOXIDE 26.5 mmol/L (21.0-32.0); CREATININE - SERUM 1.1 mg/dL (0.6-1.3); POTASSIUM - SERUM 4.1 mmol/L (3.5-5.1); PROTEIN - SERUM 5.1 g/dL (6.4-8.2)
--- NOTE | 2019-03-21 07:15 | NUR ---
REC'D IN BED AWAKE AND ALERT. RESP EVEN AND UNLABORED WITH NO DISTRESS NOTED. HAS O2 IN USE VIA N/C @ 2 L/M. DENIES ANY PAIN OR DISCOMFORT AT THIS TIME. CAN VOICE NEEDS AND WANTS. AND C/L IN REACH AT BEDSIDE.
[2019-03-21 07:59] VITALS: BP 170/85
[2019-03-21 11:55] VITALS: BP 174/69
--- NOTE | 2019-03-21 12:59 | MORECARE ---
CASE MANAGEMENT DISCHARGE SUMMARY PATIENT: KRISTINE ERNANDEZ UNIT: [id number] ADM DATE: 03/20/19 AGE: 63 : 59 SEX: M ROOM/BED: D.2203 AUTHOR: DEEPALI CALVO PHYSICIAN: REFERRING PHYSICIAN: ROCHELLE CHONG MD DATE OF SERVICE: 03/21/19 Discharge Plan Patient Name: KRISTINE ERNANDEZ [facility] [facility] 1955 Planned Disposition: Home or Self Care Anticipated Discharge Date: Discharge Date: Expected LOS: Initial Reviewer: [email or web address] Initial Review Date: 03/20/2019 Generated: 03/21/19 1:58 pm DCP- Discharge Planning Updated by [email or web address]: Emi Vides on 03/20/19 1:[address] attempted to see patient, but he was not in his room. He is in a procedure at this time. Last DP export: 03/20/19 1:54 pm Patient Name: KRISTINE ERNANDEZ Page 64927 at 1259 All edits/amendments must be made on the electronic document DICTATION DATE: 03/21/19 125 PIPE STEM ALIGNER: KARI 03/21/19 125 RPT#: [id number] DC DATE: STATUS: ADM IN [facility] [address] [place] [address] END OF REPORT
--- NOTE | 2019-03-21 13:06 | MORECARE ---
CASE MANAGEMENT DISCHARGE SUMMARY PATIENT: KRISTINE ERNANDEZ UNIT: [id number] ADM DATE: 03/20/19 AGE: 63 : 59 SEX: M ROOM/BED: D.2203 AUTHOR: DEEPALI CALVO PHYSICIAN: REFERRING PHYSICIAN: ROCHELLE CHONG MD DATE OF SERVICE: 03/21/19 Discharge Plan Patient Name: KRISTINE ERNANDEZ [facility]:[place] : 1955 Planned Disposition: Home or Self Care Anticipated Discharge Date: Discharge Date: Expected LOS: Initial Reviewer: [email or web address] Initial Review Date: 03/20/2019 Generated: 03/21/19 2:05 pm Comments DCP- Discharge Planning Updated by [email or web address]: Emi Vides on 03/21/19 12:[address] Patient Name: KRISTINE ERNANDEZ Admission Status: ER Accout number: [id number] Admission Date: 03-20-2019 : 1955 Admission Diagnosis: Attending: ROCHELLE ALEMAN Current LOS: 1 Anticipated DC Date: Planned Disposition: Home or Self Care Primary Insurance: [employer] OUT OF STATE Discharge Planning Comments: CM met with patient & to complete initial dc planning assessment. CM educated patient on the CM role and verbal consent given by patient to complete assessment. Patient lives at home with his where he is independent with his care. At discharge patient plans to return home and feels this is a safe discharge. CM discussed availability of home health, rehab services, and medical equipment. Janice ( ) asked about home O2 when DC, I explained to her that we would check prior to DC. Patient denied known discharge needs at this time. CM will continue to follow and will assist as needed with dc plans/needs. Color Card Maker: Emi Vides DCP- Discharge Planning Updated by [email or web address]: Emi Vides on 03/20/19 1:[address] attempted to see patient, but he was not in his room. He is in a procedure at this time. DCPIA - Discharge Planning Initial Assessment Updated by [email or web address]: Emi Vides on 03/21/19 1:00 pm * Is the patient Alert and Oriented? Yes * PCP [facility] * Pharmacy [facility] * Preadmission Environment Home with Family * ADLs Independent * Equipment None * List name and contact numbers for known caregivers / representatives who currently or will assist patient after discharge: JANICE () [phone] * Community resources currently utilized None * Additional services required to return to the preadmission environment? Yes * Can the patient safely return to the preadmission environment? Yes * Has this patient been hospitalized within the prior 30 days at any hospital? Yes Last DP export: 03/21/19 11:59 am Patient Name: KRISTINE ERNANDEZ Page 10936 at 1306 All edits/amendments must be made on the electronic document DICTATION DATE: 03/21/19 1305 CONSUMER EXPERIENCE CONSULTANT: KARI 03/21/19 1305 RPT#: [id number] DC DATE: STATUS: ADM IN [facility] [address] [place] [address] END OF REPORT
[2019-03-21 13:25] VITALS: BMI 27.9
--- NOTE | 2019-03-21 14:22 | NUR ---
I have reviewed this patient and I concur with the Shift Assessment completed by the Licensed Practical Nurse today this shift.
[2019-03-21 15:33] VITALS: Ht 180.3 cm; Wt 90.7 kg
[2019-03-21 16:01] VITALS: BP 132/83
--- NOTE | 2019-03-21 20:25 | NUR ---
WATCHING TV QUIELTY. NO COMPLAITNS VOICED. APPELLATE COURT CLERK DILAUDID IN USE FOR PAIN CONTROL. IV TO RIGHT HAND INTACT WITHOUT REDNESS OR EDEMA NOTED. CL IN REACH
[2019-03-21 21:09] VITALS: BP 109/63
[2019-03-22 01:06] VITALS: BP 115/74
--- NOTE | 2019-03-22 01:09 | NUR ---
PATIENT COMPLAINS OF PAIN CHEST/EPIGASTRIC AREA. LOADER MACHINE NOTIFIED WITH ORDERS RECEIVED.TELEMENTRY SHOWS 94 SR. RESP UNLABORED.
[2019-03-22 02:21] LABS: CKMB 0.1 U/L (0.0-3.6); CREATINE KINASE 13 UL (21-232); TROPONIN-I < 0.017 ng/mL (0.000-0.060)
--- NOTE | 2019-03-22 04:59 | NUR ---
I have reviewed this patient and I concur with the Shift Assessment completed by the Licensed Practical Nurse today this shift.
[2019-03-22 05:37] VITALS: BP 117/73
[2019-03-22 07:31] LABS: HEMATOCRIT 28.4 % (42.0-54.0); HEMOGLOBIN 9.3 g/dL (13.5-17.5); MCH 26.5 pg (26.0-34.0); MCHC 32.7 g/dL (31.0-37.0); MCV 80.9 fL (80.0-100.0); MEAN PLATELET VOLUME 10.2 fL (7.4-10.4); PLATELET COUNT 267 10x3/uL (130-400); RBC 3.51 10x6/uL (4.20-6.10); RDW 16.5 % (11.5-14.5); WBC 12.8 10x3/uL (4.8-10.8)
--- NOTE | 2019-03-22 07:56 | NUR ---
AWAKE AND ALERT. ORIENTED X3. NO C/O AT THIS TIME. LUNGS ARE CLEAR BILATERALLY, NO COUGH NOTED. OCCASSIONAL PRODUCTIVE COUGH REPORTED WITH CLEAR SPUTUM. SKIN IS INTACT WITHOUT REDNESS. EDEMA NOTED TO RIGHT LE AND LEFT ARM. WILL MONITOR. IV TO RIGHT HAND IS PATENT WITHOUT REDNESS AT ISNERTION SITE. AT BEDSIDE. DENIES NEEDS.
[2019-03-22 07:57] LABS: ALBUMIN 1.9 g/dL (3.4-5.0); ALKALINE PHOSPHATASE 136 U/L (46-116); ALT (SGPT) 14 U/L (10-68); BILIRUBIN - TOTAL 0.25 mg/dL (0.2-1.3); CALC OSMOLALITY 272 mosm/kg (275-300); CALCIUM 7.7 mg/dL (8.5-10.1); CARBON DIOXIDE 28.2 mmol/L (21.0-32.0); CHLORIDE - SERUM 103 mmol/L (98-107); CKMB 0.1 U/L (0.0-3.6); CREATINE KINASE 14 UL (21-232); CREATININE - SERUM 1.1 mg/dL (0.6-1.3); GLUCOSE 99 mg/dL (74-106); POTASSIUM - SERUM 4.1 mmol/L (3.5-5.1); PROTEIN - SERUM 4.6 g/dL (6.4-8.2); SODIUM 137 mmol/L (136-145); TROPONIN-I < 0.017 ng/mL (0.000-0.060); UREA NITROGEN 9 mg/dL (7-18); eGFR NON AFRICAN AMERICAN 72 mL/min (90-120)
[2019-03-22 08:03] VITALS: BP 140/84
--- NOTE | 2019-03-22 08:40 | NUR ---
C/O NAUSEA WITH SCANT EMESIS. SPOKE WITH MACARENA ROSE, NEW ORDERS RECEIVED. GIVEN 8MG ZOFRAN SLOW IVP FOR C/O NAUSEA. WILL MONITOR.
[2019-03-22 09:29] LABS: ANISOCYTOSIS OCC; EOSINOPHILS 2 % (0-7); LYMPHOCYTES 12 % (15-50); MONOCYTES 19 % (2-11); NEUTROPHILS 67 % (40-80); PLATELET ESTIMATE NORMAL
--- NOTE | 2019-03-22 10:25 | NUR ---
NUTRITION F/U CHANGED DIET TO REG PER PT REQUEST. STARTED PROCALAMINE PER MD REQUEST. ENTERED NURSING MESSAGE TO REDUCE IV FLUIDS TO 50 CC/HR WHEN PROCALAMINE STARTS. RD FOLLOWING
--- NOTE | 2019-03-22 10:30 | NUR ---
REPORTS FEELING BETTER BUT STILL SOME NAUSEA.
[2019-03-22 12:17] VITALS: BP 188/80
--- NOTE | 2019-03-22 13:10 | NUR ---
OFF UNIT VIA BED FOR PROCEDURE. AT [facility].
[2019-03-22 14:51] LABS: CKMB 0.2 U/L (0.0-3.6); CREATINE KINASE 20 UL (21-232)
[2019-03-22 14:53] LABS: TROPONIN-I < 0.017 ng/mL (0.000-0.060)
[2019-03-22 15:39] VITALS: BP 122/77
--- NOTE | 2019-03-22 17:33 | NUR ---
NURSING TOLD PHARMACY LABORATORY TECHNICIAN IS EMPTY. NEW SYRINGE OPENED AT [facility]. OLD SYRINGE STILL HAD 16ML. WASTED PER PROTOCAL.
--- NOTE | 2019-03-22 18:00 | NUR ---
REFUSED SUPPER TRAY. REQUESTED AND GIVNE 25MG PHENERGAN PO FOR C/O NAUSEA. WILL MONITOR. NO CHAGES NOTED. DENIES NEEDS. AT BEDSIDE.
[2019-03-22 20:05] VITALS: BP 109/72
--- NOTE | 2019-03-22 20:30 | NUR ---
AWAKE,ALERT.NO COMPLAINTS VOICED. RESP EVEN AND UNALBORED. NO DISTRESS MOTED. O2 @ 2L PER NC ON. IV INFUSING TO RIGHT HAND WITHOUT REDNESS OR EDEMA NOTED. STERI STRIPS INTACT TO LEFT CHEST INCISION WITHOUT DRAINAGE NOTED. LEFT ARM AND RIGHT LEG REMAINS EDEMATOUS AND RED. CL IN REACH. MATERIAL SCHEDULER DILAUDID IN USE FOR PAIN CONTROL.
[2019-03-23 00:36] VITALS: BP 121/76
--- NOTE | 2019-03-23 02:41 | NUR ---
I have reviewed this patient and I concur with the Shift Assessment completed by the Licensed Practical Nurse today this shift.
[2019-03-23 04:55] VITALS: BP 121/75
--- NOTE | 2019-03-23 07:54 | NUR ---
AWAKE AND ALERT. ORIENTED X3. NO C/O AT THIS TIME BUT STILL SLIGHTLY NAUSEATED. ABLE TO KEEP A POP TART DOWN THIS AM. LUNGS ARE CLEAR BILATERALLY, NO COUGH NOTED. SKIN IS INTACT WITHOUT REDNESS. IV GTO RIGHT HAND IS PATETN WITHOUT REDNESS AT INSERTION SITE. AT BEDSIDE. DENIES NEEDS.
[2019-03-23 08:04] VITALS: BP 146/79
[2019-03-23 09:12] LABS: ALBUMIN 1.9 g/dL (3.4-5.0); ALKALINE PHOSPHATASE 130 U/L (46-116); ALT (SGPT) 15 U/L (10-68); BILIRUBIN - TOTAL 0.28 mg/dL (0.2-1.3); CALC OSMOLALITY 270 mosm/kg (275-300); CALCIUM 8.1 mg/dL (8.5-10.1); CARBON DIOXIDE 24.4 mmol/L (21.0-32.0); CHLORIDE - SERUM 102 mmol/L (98-107); GLUCOSE 140 mg/dL (74-106); POTASSIUM - SERUM 4.3 mmol/L (3.5-5.1); PROTEIN - SERUM 4.8 g/dL (6.4-8.2); SODIUM 135 mmol/L (136-145); UREA NITROGEN 9 mg/dL (7-18); eGFR NON AFRICAN AMERICAN 81 mL/min (90-120)
[2019-03-23 09:35] LABS: HEMATOCRIT 30.6 % (42.0-54.0); HEMOGLOBIN 10.1 g/dL (13.5-17.5); IMMATURE GRANULOCYTES 8.9 % (0-5); MCH 26.9 pg (26.0-34.0); MCV 81.6 fL (80.0-100.0); MEAN PLATELET VOLUME 10.5 fL (7.4-10.4); PLATELET COUNT 317 10x3/uL (130-400); RBC 3.75 10x6/uL (4.20-6.10); RDW 16.8 % (11.5-14.5); WBC 15.2 10x3/uL (4.8-10.8)
--- NOTE | 2019-03-23 10:12 | NUR ---
REPORTS NAUSEA IS IMPROVED. UP TO SHOWER WITH ONE PERSON ASSIST. LINENS CHANGED PER STAFF.
[2019-03-23 10:15] LABS: EOSINOPHILS 1 % (0-7); LYMPHOCYTES 23 % (15-50); MONOCYTES 9 % (2-11); NEUTROPHILS 59 % (40-80)
--- NOTE | 2019-03-23 10:43 | NUR ---
ENCOURAGED TO TAKE PHENERGAN PO IF FEELING ANY NAUSEA. HE ASKED FOR ONE AND WAS GIVEN 25MG PO. WILL MONITOR.
[2019-03-23] MEDS ORDERED: PLAVIX75 MG PO (10:52)
[2019-03-23] MEDS ORDERED: COLACE100 MG PO (10:53)
[2019-03-23] MEDS ORDERED: TESSALON PERLE100 MG PO (10:53)
[2019-03-23] MEDS ORDERED: MUCINEX600 MG PO (10:53)
[2019-03-23] MEDS ORDERED: LEVAQUIN750 MG PO (11:35)
[2019-03-23 11:50] LABS: INR 2.72 (0.85-1.17); PROTIME 28.1 SECONDS (11.6-15.0)
--- NOTE | 2019-03-23 12:45 | NUR ---
ATE ONLY A FEW BITES OF LUNCH. IV TO RIGHT HAND NOT VIABLE FOR CT SCAN. WILL RESITE.
[2019-03-23 12:50] VITALS: BP 135/76
--- NOTE | 2019-03-23 14:45 | NUR ---
IV RESITED AFTER 3 ATTEMPTS WITH 20 GAUGE TO RIGHT FOREARM. OFF UNIT VIA BED FOR CT SCAN.
--- NOTE | 2019-03-23 15:15 | NUR ---
RETURNED FROM CT. DENIES NEEDS.
--- NOTE | 2019-03-23 16:00 | NUR ---
REQUESTED AND GIVEN 25MG PHENERGAN PO FOR POSSIBLE NAUSEA WITH DINNER. WILL MONITOR.
[2019-03-23 16:42] VITALS: BP 116/69
--- NOTE | 2019-03-23 18:32 | NUR ---
HAD SOME EMESIS AFTER EATING. GIVEN 4MG ZOFRAN SLOW IVP FOR SAME. WILL MONITOR. UP IN CHAIR AT BEDSIDE. NO CHANGES NTOED.
--- NOTE | 2019-03-23 19:15 | NUR ---
PT ALERT AND ORIENTED WITH IN ROOM. PT WEARING O2 AT 2 L WITH LUNGS CLEAR TO AUSCULTATION. HAS INSICION TO THE LEFT UPPER CHEST WHERE PORT WAS REMOVED. STERI STRIPS TO INCISION AND CLEAN AND DRY AT THIS TIME. LEFT ARM IS SWOLLEN AND WARM TO TOUCH. PATIENT IS GUARDED WHEN ASSESSING AREA. RIGHT HAND IV IS PATENT AND INFUSING PROCALAMINE AT 75. NS @ 50. AND DILAUDID PRIMER PRESS OPERATOR. RIGHT FOREARM IV THAT IS SALINE LOCKED AT THIS TIME. UPON ABDOMINAL ASSESSMENT FOUND TUBE THAT WAS INSERTED TO THE LEFT LOWER PART OF THE ABDOMEN. PATIENT STATES HE HAD IT PLACED SEVERAL MONTHS AGO DUE TO ABDOMINAL FLUID. PATIENT STATES HE HANDLES HIS OWN CARE WHEN IT COMES TO THIS DRAIN. INSERTION SITE IS CLEAN AND DRY. NO REDNESS OR TENDERNESS TO THE AREA. BOWEL SOUNDS ARE ACTIVE. O2 AT 2L. DENIES NAUSEA AT THIS TIME. STATES HE DOES NOT WANT MIRALAX THIS PM. DENIES OTHER ISSUES. CALL LIGHT IN REACH. CPOC.
[2019-03-23 20:00] VITALS: BP 125/75
--- NOTE | 2019-03-23 23:45 | NUR ---
ADMINISTERED ZOFRAN PRN FOR NAUSEA AND LOVENOX SQ. DENIES FURTHER NEEDS. CALL LIGHT IN REACH. CPOC.
[2019-03-24] VITALS: BP 115/71
[2019-03-24 04:00] VITALS: BP 129/70
--- NOTE | 2019-03-24 06:42 | NUR ---
I have reviewed this patient and I concur with the Shift Assessment completed by the Licensed Practical Nurse today this shift.
[2019-03-24 08:13] VITALS: BP 116/77
--- NOTE | 2019-03-24 12:55 | NUR ---
PT RESTING IN BED. NO SIGNS OF DISTRESS. IV TO RIGHT HAND PATENT NO REDNESS OR TENDERNESS. ON TELEMETRY 889 SR. ON 2L NC. HAS DRAIN TO LEFT SIDE. PT TAKES CARE OF. COMPLAINS OF PAIN. MEDICATIONS GIVEN. DENIES ANY FURTHER NEED AT THIS TIME. CALL LIGHT IN REACH. BED LOW POSITION. FAMILY AT BEDSIDE.
[2019-03-24 13:21] VITALS: BP 114/76
[2019-03-24 16:11] VITALS: BP 106/77
--- NOTE | 2019-03-24 19:51 | NUR ---
PATEINT IN BED WITH FAMILY AT BEDSIDE. ALERT AND ORENTED ABLE TO VOICE NEEDS AND WANTS TO STAFF. WATER AND CALL LIGHT IN REACH.DLIADED OCEANOLOGIST IN PLACE , PROCAL, AND NS, ZOFRAN DRIP. DRAIN INTACT TO LEFT SIDE KEELEY HOSE IN PLACE BILATERAL. BED LOW.
[2019-03-24 19:55] VITALS: BP 135/84
[2019-03-25] VITALS (7 sets, daily range): BP systolic 98–123; BP diastolic 59–76
[2019-03-25 05:17] LABS: BASOPHILS 0.7 % (0-2); EOSINOPHILS 1.4 % (0-7); HEMATOCRIT 28.9 % (42.0-54.0); HEMOGLOBIN 9.5 g/dL (13.5-17.5); IMMATURE GRANULOCYTES 8.2 % (0-5); LYMPHOCYTES 11.8 % (15-50); MCH 26.7 pg (26.0-34.0); MCHC 32.9 g/dL (31.0-37.0); MCV 81.2 fL (80.0-100.0); MEAN PLATELET VOLUME 9.9 fL (7.4-10.4); NEUTROPHILS 61.9 % (40-80); PLATELET COUNT 360 10x3/uL (130-400); RBC 3.56 10x6/uL (4.20-6.10); RDW 16.9 % (11.5-14.5); WBC 13.3 10x3/uL (4.8-10.8)
[2019-03-25 05:23] LABS: ALBUMIN 1.9 g/dL (3.4-5.0); ANION GAP 12.2 mmol/L (8-16); BILIRUBIN - TOTAL 0.34 mg/dL (0.2-1.3); CALCIUM 8.2 mg/dL (8.5-10.1); CARBON DIOXIDE 27.1 mmol/L (21.0-32.0); CREATININE - SERUM 1.1 mg/dL (0.6-1.3); POTASSIUM - SERUM 4.3 mmol/L (3.5-5.1); PROTEIN - SERUM 5.5 g/dL (6.4-8.2)
--- NOTE | 2019-03-25 08:00 | NUR ---
PATIENT IN BED WITH IV INTACT. NO COMPLAINTS OR SIGNS OF DISTRESS. IV INTACT. CALL LIGHT WITHIN REACH.
--- NOTE | 2019-03-25 09:45 | NUR ---
PATIENT VOMITTED MUCINEX UP. STATED IT WAS TO BIG TO SWALLOW. IV INTACT AT THIS TIME WITH ZOFRAN INFUSING. FAMILY AT BEDSIDE. CALL LIGHT WITHIN REACH.
--- NOTE | 2019-03-25 11:00 | NUR ---
PATIENT SITTING UP IN CHAIR WITH IV INTACT. NO COMPLAINTS OR SIGNS OF DISTRESS. CALL IGHT WITHIN REACH. TEDS ON. FAMILY AT BEDSIDE.
[2019-03-25 12:52] LABS: INR 1.61 (0.85-1.17); PROTIME 18.5 SECONDS (11.6-15.0)
--- NOTE | 2019-03-25 13:40 | NUR ---
PATIENT SITTING UP IN CHAIR WITH IV INTACT. NO COMPLAINTS OR SIGNS OF DISTRESS. FAMILY AT BEDSIDE. CALL LIGHT WITHIN REACH.
--- NOTE | 2019-03-25 18:11 | NUR ---
PATIENT IN BED WITH IV INTACT. NO COMPLAINTS OR SIGNS OF DISTRESS. FAMILY AT BEDSIDE. CALL LIGHT WITHIN REACH.
--- NOTE | 2019-03-25 19:50 | NUR ---
rESTING IN BED WITH AT BED SIDE REQUESTED AND RESIVED ATIVAN FOR STATED ANXITY. TEDS IN PLACE BILATERAL. ALERT AND ORENTED ABLE TO VOICE NEEDS AND WANTS TO STAFF. IV TO RIGHT HAND WITH PROCAL, NS, DILAUIDID OLEOMARGARINE MAKER IN PLACE. DRAIN TO LEFT SIDE PT TAKES CARE OF HE STATED. CALL LIGHT AND WATER IN REACH AT BEDSIDE. BED LOW. CHECKED OFTEN FOR NEEDS AND SAFETY.
[2019-03-26 04:00] VITALS: BP 101/63
--- NOTE | 2019-03-26 04:41 | NUR ---
refused am labs this am.
--- NOTE | 2019-03-26 07:45 | NUR ---
AWAKE AND ALERT. ORIENTED X3. NO C/O AT THIS TIME. STILL HAVEING SOME NAUSEA. LUNGS ARE CLEAR BILATERALLY, NO COUGH NOTED. SKIN IS INTACT WTIHOUT REDNESS. EDEMA TO RIGHT ARM AND LEFT LEG IMPROVED TODAY, ALMOST GONE. COMPRESSION STOCKINGS OFF AT THIS TIME. IV TO RIGHT HAND IS PATETN WITHOUT REDNESS AT INSERTION SITE. DENIES NEEDS. AT BEDSIDE.
[2019-03-26 08:00] VITALS: BP 106/73
--- NOTE | 2019-03-26 08:11 | NUR ---
REQUESTED AND GIVEN 25MG PHENERGAN PO FOR NAUSEA PREVENTION WITH BREAKFAST. WILL MONITOR.
[2019-03-26 09:53] LABS: HEMATOCRIT 28.7 % (42.0-54.0); HEMOGLOBIN 9.6 g/dL (13.5-17.5); MCHC 33.4 g/dL (31.0-37.0); MCV 80.8 fL (80.0-100.0); PLATELET COUNT 305 10x3/uL (130-400); RBC 3.55 10x6/uL (4.20-6.10); RDW 16.5 % (11.5-14.5)
--- NOTE | 2019-03-26 09:56 | NUR ---
ABLE TO TAKE AM MEDS OVER TIME WITHOUT NAUSEA OR EMESIS.
[2019-03-26 10:05] LABS: WBC 17.5 10x3/uL (4.8-10.8)
[2019-03-26 10:10] LABS: INR 1.5 (0.85-1.17); PROTIME 17.5 SECONDS (11.6-15.0)
[2019-03-26 11:01] LABS: ANION GAP 10.6 mmol/L (8-16); CARBON DIOXIDE 28.3 mmol/L (21.0-32.0); CREATININE - SERUM 1.1 mg/dL (0.6-1.3); POTASSIUM - SERUM 4.9 mmol/L (3.5-5.1)
[2019-03-26 11:39] LABS: ANISOCYTOSIS OCC; LYMPHOCYTES 21 % (15-50); MONOCYTES 17 % (2-11); NEUTROPHILS 52 % (40-80); PLATELET ESTIMATE NORMAL; POLYCHROMASIA OCC
[2019-03-26 12:32] VITALS: BP 97/57
--- NOTE | 2019-03-26 12:56 | NUR ---
Nutrition follow-up: Diet: Regular as tolerated PO intake ~50% of some meals Pt continues with nausea, vomiting ProcalAmine PPN infusing @ 75 ml/hr chemotherapy starting soon RDN following.
--- NOTE | 2019-03-26 13:00 | NUR ---
REFUSED TO EAT LUNCH. DENIES NEEDS. SHOWERED THIS AM.
[2019-03-26 13:25] LABS: APPEARANCE CLEAR (CLEAR); BILIRUBIN NEGATIVE (NEGATIVE); COLOR STRAW (YELLOW); GLUCOSE NEGATIVE (NEGATIVE); KETONE NEGATIVE (NEGATIVE); NITRITE NEGATIVE (NEGATIVE); PROTEIN NEGATIVE (NEGATIVE); SPECIFIC GRAVITY 1.005 (1.005-1.020); UROBILINOGEN NORMAL (NORMAL)
--- NOTE | 2019-03-26 18:41 | NUR ---
PICC PLACED AND FUNCTIONAL. ATE A GRAPE FOR SUPPER AND THREW UP 100CC DARK STICKY LIQUID. DENIES NAUSEA. AT BEDSIDE. NO CHANGES NOTED. IV TO RIGHT HAND D/C WITH CATHETER INTACT.
[2019-03-26 20:28] VITALS: BP 148/67
[2019-03-27 01:17] VITALS: BP 154/74
--- NOTE | 2019-03-27 01:28 | NUR ---
1944)REC'D AT SHIFT CHGE.IN BED DENIES NAUSEA OR ANY OTHER DISCOMFORT AT PRESENT TIME.EYES CLOSED BUT AROUSES EASILY TO VERBAL STIMULI AT BEDSIDE WILL CONTINUE TO MONITOR AND FOLLOW CURRENT PLAN OF CARE.
[2019-03-27 04:59] VITALS: BP 124/60
[2019-03-27 06:13] LABS: BASOPHILS 0.2 % (0-2); HEMATOCRIT 27.5 % (42.0-54.0); HEMOGLOBIN 9.1 g/dL (13.5-17.5); IMMATURE GRANULOCYTES 5.5 % (0-5); LYMPHOCYTES 11.7 % (15-50); MCH 26.6 pg (26.0-34.0); MCHC 33.1 g/dL (31.0-37.0); MCV 80.4 fL (80.0-100.0); MEAN PLATELET VOLUME 10.5 fL (7.4-10.4); MONOCYTES 13.7 % (2-11); NEUTROPHILS 67.9 % (40-80); PLATELET COUNT 249 10x3/uL (130-400); RBC 3.42 10x6/uL (4.20-6.10); RDW 16.8 % (11.5-14.5); WBC 17.8 10x3/uL (4.8-10.8)
[2019-03-27 06:18] LABS: ANION GAP 12.5 mmol/L (8-16); CALCIUM 8.5 mg/dL (8.5-10.1); CREATININE - SERUM 1.3 mg/dL (0.6-1.3); POTASSIUM - SERUM 4.5 mmol/L (3.5-5.1)
[2019-03-27 06:19] LABS: INR 1.73 (0.85-1.17); PROTIME 19.6 SECONDS (11.6-15.0)
--- NOTE | 2019-03-27 07:28 | NUR ---
I have reviewed this patient and I concur with the Shift Assessment completed by the Licensed Practical Nurse today this shift.
[2019-03-27 08:01] VITALS: BP 138/66
--- NOTE | 2019-03-27 08:35 | NUR ---
AWAKE AND ALERT. ORIENTED X3. C/O SOME PAIN TO RIGHT ARM TODAY, WHICH IS REDDENED. WILL MONITOR. LUNGS ARE CLEAR BIALTERALLLY, OCCASSIONAL DRY COUGH NOTED. SKIN IS INTACT WITHOUT REDNESS. EDEMA TO RIGHT LEG AND LEFT ARM ARE ALMOST COMPLETELY GONE. PICC TO RIGHT UPPER ARM IS PATENT WTIHOUT REDNESS AT INSERTION SITE. AT BEDSIDE. DENIES NEEDS. VOIDED CLEAR YELLOW URINE WITHOUT DIFFICUTLY IN URINAL.
--- NOTE | 2019-03-27 10:00 | NUR ---
UP TO SHOWER WITH SET UP ASSISTANCE. ASSISTED WITH SHOWER. LINENES CHANGED PER STAFF.
[2019-03-27 13:27] VITALS: BP 138/66; BP 149/80
--- NOTE | 2019-03-27 15:27 | NUR ---
CHEMO GIVEN AFTER EXCELLENT BLOOD RETURN NOTED TO RIGHT UPPER PICC. LEUCOVOCIN GIVEN OVER 2 MIN AND 5FU GIVEN OVER 6 MIN. PICC LINE FLUSHED IN BETWEEN CHEMOS AND AGAIN AFTER ADMINISTRATION. PATIENT RESTING QUIETLY WITH EYES CLOSED AND AT BEDSIDE.
[2019-03-27 16:10] VITALS: BP 168/74
--- NOTE | 2019-03-27 18:31 | NUR ---
REFUSED SUPPER TRAY. IN ROOM. DENIES NEEDS.
--- NOTE | 2019-03-27 21:22 | NUR ---
AROUSES EASILY TO VERBAL STIMULI. RESP EVEN AND UNALBORED. NO DISTRESS NOTED. 02 @ 2L PER NC ON.BRIANA WITH PICC LINE INTACT. NO REDNESS OR EDEMA AT SITE. PAC DILAUDID IN USE FOR PAIN CONTROL. CL IN REACH
[2019-03-27 21:44] VITALS: BP 119/76
[2019-03-28 01:11] VITALS: BP 124/80
--- NOTE | 2019-03-28 01:59 | NUR ---
I have reviewed this patient and I concur with the Shift Assessment completed by the Licensed Practical Nurse today this shift.
[2019-03-28 05:18] VITALS: BP 147/73
[2019-03-28 06:55] LABS: ANION GAP 13.4 mmol/L (8-16); CALCIUM 8.7 mg/dL (8.5-10.1); CARBON DIOXIDE 27.4 mmol/L (21.0-32.0); CREATININE - SERUM 1.5 mg/dL (0.6-1.3); POTASSIUM - SERUM 4.8 mmol/L (3.5-5.1)
[2019-03-28 07:14] LABS: INR 2.28 (0.85-1.17); PROTIME 24.4 SECONDS (11.6-15.0)
--- NOTE | 2019-03-28 07:39 | NUR ---
PT RESTING IN BED. DENIES PAIN. NO S/S OF ACUTE DISTRESS. CL IN PLACE. AT BEDSIDE.
[2019-03-28 07:50] LABS: HEMATOCRIT 29.4 % (42.0-54.0); HEMOGLOBIN 9.8 g/dL (13.5-17.5); MCH 26.5 pg (26.0-34.0); MCHC 33.3 g/dL (31.0-37.0); MCV 79.5 fL (80.0-100.0); MEAN PLATELET VOLUME 10.8 fL (7.4-10.4); PLATELET COUNT 226 10x3/uL (130-400); RDW 16.8 % (11.5-14.5); WBC 20.1 10x3/uL (4.8-10.8)
[2019-03-28 09:03] VITALS: BP 108/79
[2019-03-28 10:55] LABS: HYPOCHROMASIA OCC; LYMPHOCYTES 5 % (15-50); MONOCYTES 11 % (2-11); NEUTROPHILS 80 % (40-80); PLATELET ESTIMATE NORMAL; ROULEAUX OCC
[2019-03-28 13:48] VITALS: BP 109/64; BP 110/60
--- NOTE | 2019-03-28 15:22 | NUR ---
chemo given to right picc line after excellent blood return noted. picc line flushed with ns 10cc inbetween chemos and again after chemo given. at bedside. tolerated well.
[2019-03-28 17:10] VITALS: BP 110/62
--- NOTE | 2019-03-28 19:46 | NUR ---
PT RESTING IN BED. TALKING TO ONCOMING NURSE. NO S/S OF ACUTE DISTRESS. CL IN PLACE.
--- NOTE | 2019-03-28 21:00 | NUR ---
WATCHING TV QUITLY WITH NO DISTRESS NOTED.IV INFUSING TO RIGHT PICC WITH NO REDNESS OR NATALIE NOTED.NO COMPLAINS VOICED. CL IN REACH.
[2019-03-28 21:53] VITALS: BP 115/52
[2019-03-29 00:25] VITALS: BP 124/54
--- NOTE | 2019-03-29 03:43 | NUR ---
I have reviewed this patient and I concur with the Shift Assessment completed by the Licensed Practical Nurse today this shift.
[2019-03-29 05:16] VITALS: BP 120/50
[2019-03-29 06:55] LABS: ANION GAP 15.8 mmol/L (8-16); CALCIUM 8.7 mg/dL (8.5-10.1); CREATININE - SERUM 1.4 mg/dL (0.6-1.3); POTASSIUM - SERUM 4.8 mmol/L (3.5-5.1)
[2019-03-29 07:03] LABS: BASOPHILS 0.1 % (0-2); EOSINOPHILS 0 % (0-7); HEMATOCRIT 29.7 % (42.0-54.0); IMMATURE GRANULOCYTES 2.4 % (0-5); LYMPHOCYTES 6.6 % (15-50); MCH 26.6 pg (26.0-34.0); MCHC 33.7 g/dL (31.0-37.0); MEAN PLATELET VOLUME 10.6 fL (7.4-10.4); MONOCYTES 6.5 % (2-11); NEUTROPHILS 84.4 % (40-80); PLATELET COUNT 211 10x3/uL (130-400); RBC 3.76 10x6/uL (4.20-6.10); RDW 16.8 % (11.5-14.5); WBC 23.4 10x3/uL (4.8-10.8)
--- NOTE | 2019-03-29 07:04 | NUR ---
UP IN CHAIR AT BEDSIDE.NO COMPLAITNS VOICED.NO DISTESS NOTED. CL IN REACH
[2019-03-29 07:09] LABS: PROTIME 28.6 SECONDS (11.6-15.0)
[2019-03-29 07:13] LABS: INR 2.78 (0.85-1.17)
[2019-03-29 08:47] VITALS: BP 161/75
--- NOTE | 2019-03-29 09:10 | NUR ---
PT RESTING IN BED. UP TALKING AND SMILING. EATING MCDONALDS BREAKFAST. DENIES ANY NEEDS. NO S/S OF ACUTE DISTRESS. CL IN PLACE.
[2019-03-29 12:52] VITALS: BP 135/71
[2019-03-29 17:49] VITALS: BP 126/69
[2019-03-29 21:26] VITALS: BP 123/66
--- NOTE | 2019-03-29 21:43 | NUR ---
AWAKE,ALERT.NO COMPLATINS VOICED. RESP EVEN AND UNLABORED. O2 @ 3L PER NC ON. NO DISTRESS NOTED. PICC LINE INTACT TO RUE. NO REDNESS OR EDEMA NOTED. CL IN REACH.
--- NOTE | 2019-03-30 03:44 | NUR ---
I have reviewed this patient and I concur with the Shift Assessment completed by the Licensed Practical Nurse today this shift.
[2019-03-30 05:07] VITALS: BP 136/64
[2019-03-30 06:08] LABS: BASOPHILS 0.1 % (0-2); EOSINOPHILS 0.1 % (0-7); HEMATOCRIT 28.3 % (42.0-54.0); HEMOGLOBIN 9.3 g/dL (13.5-17.5); IMMATURE GRANULOCYTES 1.1 % (0-5); LYMPHOCYTES 9.5 % (15-50); MCH 26.4 pg (26.0-34.0); MCHC 32.9 g/dL (31.0-37.0); MCV 80.4 fL (80.0-100.0); MEAN PLATELET VOLUME 10.6 fL (7.4-10.4); NEUTROPHILS 80.2 % (40-80); RBC 3.52 10x6/uL (4.20-6.10); RDW 16.9 % (11.5-14.5)
[2019-03-30 06:26] LABS: ANION GAP 13.4 mmol/L (8-16); CALCIUM 8.4 mg/dL (8.5-10.1); CARBON DIOXIDE 27.1 mmol/L (21.0-32.0); CREATININE - SERUM 1.3 mg/dL (0.6-1.3); POTASSIUM - SERUM 4.5 mmol/L (3.5-5.1)
[2019-03-30 06:29] LABS: WBC 15.4 10x3/uL (4.8-10.8)
[2019-03-30 06:30] LABS: PLATELET COUNT 101 10x3/uL (130-400)
[2019-03-30 06:33] LABS: PROTIME 33.2 SECONDS (11.6-15.0)
--- NOTE | 2019-03-30 07:30 | NUR ---
IN ROOM. PATIENT SITTING UP IN CHAIR. CL IN REACH. NO NEEDS AT THIS TIME.
[2019-03-30 07:48] LABS: INR 3.35 (0.85-1.17)
[2019-03-30 08:30] VITALS: BP 144/79
[2019-03-30 08:31] LABS: PLATELET ESTIMATE NORMAL; PLATELET MORPHOLOGY PLT CLUMPS PRESENT
--- NOTE | 2019-03-30 12:21 | NUR ---
FAMILY AND FRIENDS IN ROOM. CO RIGHT ARM SWELLING. [facility] MEASURED THE OTHER ARM APPROX 2 IN FROM AC IT WAS 13 CM WELL. BOTH ARMS ARE WARM TO THE TOUCH AND SLIGHTLY RED IN APPEARANCE. RIGHT ARM HAS A NEW IRRITATED BRUISE AREA WHERE TAPE WAS REMOVED FROM THE PATIENT HAVING A SHOWER. CL IN REACH. WCTM
[2019-03-30 12:56] VITALS: BP 141/68
--- NOTE | 2019-03-30 15:03 | NUR ---
NUTRITION F/U PT TOLERATING REG DIET WITH 50% INTAKE RECENT MEALS. CONTINUES PROCALAMINE AT 75 CC/HR. WILL CONTINUE TO HONOR FOOD PREFERENCES, MONITOR PO INTAKE. RD FOLLOWING
--- NOTE | 2019-03-30 15:34 | EC ---
PATIENT:KRISTINE ERNANDEZ DATE OF SERVICE: 03/20/19 SEX: M MEDICAL RECORD: [id number] DATE OF : [birth year] LOCATION:D.[facility] [place] AGE OF PATIENT: 63 ADMISSION DATE: 03/20/19 REFERRING PHYSICIAN: INTERPRETING PHYSICIAN: DRISS MC MD ECHOCARDIOGRAM REPORT ECHO CHARGES 4 ECHO COMPLETE Date: 03/29/19 CLINICAL DIAGNOSIS: CHF ECHOCARDIOGRAPHIC MEASUREMENTS (adult normal given) AC root (d.<3.7cm) 2.8 cm LV Septum d (<1.2 cm> 1.2 cm Valve Excursion 1.6 cm LV Septum (systole) 1.5 cm Left Atria (s.<4.0cm> 4.2 cm LVPW d(<1.2cm) 1.6 cm RV (d.<2.3cm) 3.0 cm LVPW (sytole) 1.8 cm LV diastole(<5.6CM) 5.8 cm MV E-F(>70mm/sec) cm LV systole 4.1 cm LVOT Diameter 2.0 cm MV exc.(>10mm) cm Est.ejection fraction (50-75%) % DOPPLER: LVIT cm/sec A 83 cm/sec E 64 cm/sec LA cm/sec RVSP 39.9 mmHg LVOT 137 cm/sec AOP1/2T m/s Asc. Ao 140 cm/sec RVOT cm/sec RA cm/sec PA cm/sec AV Gradient Peak 7.9 mmHg AV Mean 4.0 mmHg AV Area 2.6 cm MV Gradient Peak 2.3 mmHg MV Mean 1.4 mmHg MV Area cm COMMENTS: Racking Technician: Lito [facility] Acid Condenser: 1 Dr. Mc TAPE# PACS Pericardial Effusion Y DATE OF SERVICE: 03/29/2019 ECHOCARDIOGRAM FINDINGS: 1. Left ventricular chamber size is within normal limits. Left ventricular systolic function is normal at 55%. 2. Left atrium is enlarged at 4.2 cm. Right atrium and right ventricular chamber sizes are mildly dilated. 3. Valvular structures have normal structure and motion. ECHOCARDIOGRAM REPORT [id number] KRISTINE ERNANDEZ 4. Doppler interrogation reveals trace tricuspid regurgitation, no other valvular insufficiency or stenosis. Pulmonary systolic pressure is estimated at 40 mmHg. 5. Small pericardial effusion is present. This is not hemodynamically significant. TRANSINT:[id number] Voice Confirmation ID: [id number] DOCUMENT ID: [id number] DRISS MC MD at 1534 CC: [id number] DICTATION DATE: 03/29/19 161 SENIOR BENEFITS SPECIALIST: 03/29/19 1618 ADM IN [facility] [address] [place] [address]
[2019-03-30 16:35] VITALS: BP 123/63
--- NOTE | 2019-03-30 18:54 | NUR ---
IV TUBING CHANGED OUT. TM
[2019-03-30 20:00] VITALS: BP 127/65
--- NOTE | 2019-03-30 21:49 | NUR ---
PT ALERT & ORIENTED. C/O LEFT ARM WEAK/PAINFUL. GAVE SCHEDULED MEDS. PT TAKING ONE PILL AT AT TIME DUE TO DIFFICULTY SWALLOWING. COMPLETE ASSESSMENT PER FLOW-SHEET. NO OTHER NEEDS. WILL CONTINUE TO MONITOR.
[2019-03-31 04:00] VITALS: BP 122/63
[2019-03-31 06:43] LABS: ANION GAP 10.2 mmol/L (8-16); CALCIUM 7.9 mg/dL (8.5-10.1); CARBON DIOXIDE 26.2 mmol/L (21.0-32.0); CREATININE - SERUM 1.3 mg/dL (0.6-1.3); POTASSIUM - SERUM 4.4 mmol/L (3.5-5.1)
[2019-03-31 06:57] LABS: HEMATOCRIT 27.5 % (42.0-54.0); HEMOGLOBIN 9.2 g/dL (13.5-17.5); MCH 26.6 pg (26.0-34.0); MCHC 33.5 g/dL (31.0-37.0); MCV 79.5 fL (80.0-100.0); MEAN PLATELET VOLUME 10.5 fL (7.4-10.4); PLATELET COUNT 80 10x3/uL (130-400); RBC 3.46 10x6/uL (4.20-6.10); RDW 16.7 % (11.5-14.5); WBC 21.3 10x3/uL (4.8-10.8)
[2019-03-31 07:37] LABS: LYMPHOCYTES 8 % (15-50); MONOCYTES 11 % (2-11); NEUTROPHILS 81 % (40-80); PLATELET ESTIMATE DECREASED
[2019-03-31 08:27] LABS: INR 2.45 (0.85-1.17); PROTIME 25.9 SECONDS (11.6-15.0)
[2019-03-31 08:47] VITALS: BP 103/63
--- NOTE | 2019-03-31 11:30 | NUR ---
BP NOT RECEIVED. PT SLEEPING. DIDN'T WANT US TO "BOTHER HIM"
--- NOTE | 2019-03-31 13:45 | NUR ---
FRIENDS AND IN ROOM. NO NEEDS AT THIS TIME. WCTM
--- NOTE | 2019-03-31 16:41 | NUR ---
BP TAKEN ON LEFT LOWER EXTREMITY WAS 216/179 AND AGAIN AT 233/204. BROUGHT THIS TO DR HIDALGO'S ATTENTION WELL HIM NOT BEING ASYMPTOMATIC. PATIENT ALSO STATED "HE DOESN'T BELIEVE IT IS THAT HIGH BECAUSE HE CAN FEEL IT WHEN IT IS." DR HIDALGO SAID TO LEAVE THAT ALONE. [facility]
--- NOTE | 2019-03-31 19:15 | NUR ---
PATIENT IS ALERT AND ORIENTED. CURRENTLY WEARING 3 L O2. RIGHT UPPERA RM PICC LINE. BILATERAL ARM RESERVE. WELL RIGHT LEG. PATIENT HAS SUB. CATH TO THE ABDOMEN THAT IS DRAINING AND PATIENT PROVIDES SELD CARE. WEARING TELEMTRY AT THIS TIME. PUPIL RESPONSE BRISK. LUNGS CLEAR TO AUSCULTATION BUT SHALLOW BREATHS ARE NOTED WITH DYSPNEA ON EXERTION--MOSTLY IN CONVERSATION. LEADITE HEATER ARE STRONG AND EQUAL. FOOT PUMPS ARE WEAKER BUT EQUAL. KEELEY HOSE REMOVED AT THIS TIME TO ASSESS SKIN INTEGRITY AND PROVIDED TEACHING TO PATIENT ABOUT LEAVING HOSE OFF FOR AN HOUR Q 12. PATIENT VERBALIZES UNDERSTANDING. BOWEL SOUNDS ARE ACTIVE BUT PATIENT REPORTS INTERMITTENET BOUTS OF [place] THAT SOMTIMES PROCEEDS TO VOMITTING. EXPLAINED TO PATIENT ABOUT ZOFRAN AND OTHER ANTIEMETICS AVAILABLE. PATIENT VERBALIZES UNDERSTANDING. HAS MARINE PHOTOGRAPHER PUMP THAT PATIENT USES TO CONTROL PAIN. CURRENTLY PAIN IS TOLERABLE. DENIES FURTHER NEEDS AND VERBALIZES HOW TO USE CALL LIGHT. PATIENT HAS URINAL AT BEDSIDE FOR TOILETING NEEDS. BED IS LOCKED AND LOWERED IN LOWEST POSITION. CPOC.
[2019-03-31 19:39] VITALS: BP 132/39
[2019-04-01] VITALS: BP 118/53
--- NOTE | 2019-04-01 03:41 | NUR ---
I have reviewed this patient and I concur with the Shift Assessment completed by the Licensed Practical Nurse today this shift.
[2019-04-01 04:00] VITALS: BP 126/62
[2019-04-01 05:44] LABS: INR 2.24 (0.85-1.17); PROTIME 24.1 SECONDS (11.6-15.0)
[2019-04-01 05:48] LABS: CARBON DIOXIDE 26.4 mmol/L (21.0-32.0); CREATININE - SERUM 1.4 mg/dL (0.6-1.3); POTASSIUM - SERUM 4.4 mmol/L (3.5-5.1)
[2019-04-01 05:54] LABS: BASOPHILS 0.2 % (0-2); EOSINOPHILS 0.8 % (0-7); HEMATOCRIT 26.6 % (42.0-54.0); HEMOGLOBIN 8.9 g/dL (13.5-17.5); IMMATURE GRANULOCYTES 2.7 % (0-5); LYMPHOCYTES 10.1 % (15-50); MCH 26.4 pg (26.0-34.0); MCHC 33.5 g/dL (31.0-37.0); MCV 78.9 fL (80.0-100.0); MEAN PLATELET VOLUME 12.6 fL (7.4-10.4); MONOCYTES 7.1 % (2-11); NEUTROPHILS 79.1 % (40-80); PLATELET COUNT 68 10x3/uL (130-400); RBC 3.37 10x6/uL (4.20-6.10); RDW 16.4 % (11.5-14.5); WBC 24.8 10x3/uL (4.8-10.8)
--- NOTE | 2019-04-01 06:36 | NUR ---
PATIENT WOKE UP VERY ALERT BUT CONFUSED AT FIRST. INTERMITTENT CONFUSION NOTED. PATIENT ABLE TO IDENTIFY NAME TIME PLACE AND SITUATION. CALL LIGHT IN REACH. CPOC.
--- NOTE | 2019-04-01 07:26 | NUR ---
PATIENT AND VANESSA AWAKE AND WATCHING TV. LIGHT ON. NO NEEDS AT THIS TIME. CL IN REACH. WCTM
[2019-04-01 08:15] VITALS: BP 117/57
[2019-04-01 12:18] VITALS: BP 119/62
--- NOTE | 2019-04-01 14:15 | NUR ---
DR SOTO WANTS US TO DO BP ON LEFT ARM. THE PICC LINE TO BRIANA IS TO BE REMOVED TOMORROW AND A PERIPHERAL IV INSERTED. DNR STATUS AT THIS TIME. PAPER ON CHART AND ORDER PLACED BY DR SOTO
--- NOTE | 2019-04-01 15:51 | NUR ---
HOSPICE CONSULTED. DR HIDALGO DOES NOT WANT US TO REMOVE THE PICC LINE AND PLACE A PERIPHERAL. WILL WAIT ON FURTHER INSTRUCTIONS. CL IN REACH. VANESSA IN ROOM. WCTM
[2019-04-01 17:05] VITALS: BP 107/52
--- NOTE | 2019-04-01 18:14 | MORECARE ---
CASE MANAGEMENT DISCHARGE SUMMARY PATIENT: KRISTINE ERNANDEZ UNIT: [id number] ADM DATE: 03/20/19 AGE: 63 : 59 SEX: M ROOM/BED: D.2203 AUTHOR: DEEPALI CALVO PHYSICIAN: REFERRING PHYSICIAN: ROCHELLE CHONG MD DATE OF SERVICE: 04/01/19 Discharge Plan Patient Name: KRISTINE ERNANDEZ Facility: [facility]:[place] : 1955 Planned Disposition: Home or Self Care Anticipated Discharge Date: Discharge Date: Expected LOS: Initial Reviewer: [email or web address] Initial Review Date: 03/20/2019 Generated: 04/01/19 7:14 pm Comments DCP- Discharge Planning Updated by [email or web address]: Shana Ayala on 04/01/19 5:[address] LATE ENTRY 1520 DR HIDALGO ASK CM TO SPEAK WITH THE PATIENT AND HIS ABOUT HOSPICE. THEY WOULD LIKE HOSPICE AT HOME. 1600 CM VISITED AT THE BEDSIDE. DISCUSSED CM ROLE AND DISCUSSED THEIR PLAN. ANSWERED THEIR QUESTIONS. CM DISCUSSED HOSPICE PROVIDERS. PROVIDED THE PATIENT'S WITH THE HOSPICE CHOICE LISTING. THEY SELECTED [facility]. POC OBTAINED. TELEPHONE CALL TO [facility]. THE AVIATION PROJECT MANAGER NURSE WAS ON SITE . CM PROVIDED HER WITH H/P, CONSULTS, PROGRESS NOTES, MED REC, MD ORDERS AND FACE SHEET. FACE SHEET INFORMATION HAD BEEN CONFIRMED. SHE VISITED WITH THE PATIENT AND HIS . SHE DISCUSSED PATIENT'S PRESENT NEEDS, DME NEEDS AND HOSPICE CARE. THE PLAN IS TO TRY TO GAIN BETTER CONTROL FOR PAIN. SHE HAS REQUESTED AN ORDER FOR A FENTANYL PATCH. THAT WILL ALLOW THE TIME REQUIRED FOR THE PATCH TO TAKE EFFECT. THE CHRISTEL WILL FOLLOW IN THE AM. SHE HAS A LIST OF THE EQUIPMENT NEEDED FOR THE HOME. PLAN FOR DISCHARGE ON TUESDAY AFTER FENTANYL HAS TAKEN EFFECT , PAIN IS CONTROLLED AND ARRANGEMENTS HAVE BEEN COMPLETED. PATIENT AND ARE IN AGREEMENT WITH THE PLAN. DCP- Discharge Planning Updated by [id number]: Emi Vides on 03/21/19 12:[address] Patient Name: KRISTINE ERNANDEZ Admission Status: ER Accout number: [id number] Admission Date: 03-20-2019 : 1955 Admission Diagnosis: Attending: ROCHELLE ALEMAN Current LOS: 1 Anticipated DC Date: Planned Disposition: Home or Self Care Primary Insurance: [employer] OUT OF STATE Discharge Planning Comments: CM met with patient & to complete initial dc planning assessment. CM educated patient on the CM role and verbal consent given by patient to complete assessment. Patient lives at home with his where he is independent with his care. At discharge patient plans to return home and feels this is a safe discharge. CM discussed availability of home health, rehab services, and medical equipment. Janice ( ) asked about home O2 when DC, I explained to her that we would check prior to DC. Patient denied known discharge needs at this time. CM will continue to follow and will assist as needed with dc plans/needs. Machine Installer: Emi Vides DCP- Discharge Planning Updated by [email or web address]: Eim Vides on 03/20/19 1:[address] attempted to see patient, but he was not in his room. He is in a procedure at this time. DCPIA - Discharge Planning Initial Assessment Updated by [id number]: Emi Vides on 03/21/19 1:00 pm * Is the patient Alert and Oriented? Yes * PCP ALMONTE * Pharmacy [facility] * Preadmission Environment Home with Family * ADLs Independent * Equipment None * List name and contact numbers for known caregivers / representatives who currently or will assist patient after discharge: JANICE () [phone] * Community resources currently utilized None * Additional services required to return to the preadmission environment? Yes * Can the patient safely return to the preadmission environment? Yes * Has this patient been hospitalized within the prior 30 days at any hospital? Yes Last DP export: 03/21/19 12:06 pm Patient Name: KRISTINE ERNANDEZ Page [phone] at 1814 All edits/amendments must be made on the electronic document DICTATION DATE: 04/01/191813 ADAPTED PHYSICAL EDUCATION SPECIALIST: KARI 04/01/191813 RPT#: [id number] DC DATE: STATUS: ADM IN [facility] [address] [place] [address] END OF REPORT
--- NOTE | 2019-04-01 18:50 | NUR ---
SKIN TEAR TO LEFT ELBOW POSTERIOR. APPLIED NON ADHESIVE DRESSING WITH PAPER TAPE
--- NOTE | 2019-04-01 18:53 | MORECARE ---
CASE MANAGEMENT DISCHARGE SUMMARY PATIENT: KRISTINE ERNANDEZ UNIT: [id number] ADM DATE: 03/20/19 AGE: 63 : 59 SEX: M ROOM/BED: D.2203 AUTHOR: DEEPALI CALVO PHYSICIAN: REFERRING PHYSICIAN: ROCHELLE CHONG MD DATE OF SERVICE: 04/01/19 Discharge Plan Patient Name: KRISTINE ERNANDEZ Facility: [facility]:[place] : 1955 Planned Disposition: Home or Self Care Anticipated Discharge Date: Discharge Date: Expected LOS: Initial Reviewer: [email or web address] Initial Review Date: 03/20/2019 Generated: 04/01/19 7:52 pm Comments DCP- Discharge Planning Updated by [email or web address]: Shana Ayala on 04/01/19 5:[address] PATIENT HAS DNR ORDER. LM IS THE NURSE WHO VISITED FROM [place] FOR REFERRAL DCP- Discharge Planning Updated by [id number]: Shana Ayala on 04/01/19 5:[address] LATE ENTRY 1520 DR HIDALGO ASK CM TO SPEAK WITH THE PATIENT AND HIS ABOUT HOSPICE. THEY WOULD LIKE HOSPICE AT HOME. 1600 CM VISITED AT THE BEDSIDE. DISCUSSED CM ROLE AND DISCUSSED THEIR PLAN. ANSWERED THEIR QUESTIONS. CM DISCUSSED HOSPICE PROVIDERS. PROVIDED THE PATIENT'S WITH THE HOSPICE CHOICE LISTING. THEY SELECTED [facility]. POC OBTAINED. TELEPHONE CALL TO [facility]. THE MIXING PLACE SUPERVISOR NURSE WAS ON SITE . CM PROVIDED HER WITH H/P, CONSULTS, PROGRESS NOTES, MED REC, ORDERS AND FACE SHEET. FACE SHEET INFORMATION HAD BEEN CONFIRMED. SHE VISITED WITH THE PATIENT AND HIS . SHE DISCUSSED PATIENT'S PRESENT NEEDS, DME NEEDS AND HOSPICE CARE. THE PLAN IS TO TRY TO GAIN BETTER CONTROL FOR PAIN. SHE HAS REQUESTED AN ORDER FOR A FENTANYL PATCH. THAT WILL ALLOW THE TIME REQUIRED FOR THE PATCH TO TAKE EFFECT. THE CHRISTEL WILL FOLLOW IN THE AM. SHE HAS A LIST OF THE EQUIPMENT NEEDED FOR THE HOME. PLAN FOR DISCHARGE ON TUESDAY AFTER FENTANYL HAS TAKEN EFFECT , PAIN IS CONTROLLED AND ARRANGEMENTS HAVE BEEN COMPLETED. PATIENT AND ARE IN AGREEMENT WITH THE PLAN. DCP- Discharge Planning Updated by [email or web address]: Emi Vides on 03/21/19 12:[address] Patient Name: KRISTINE ERNANDEZ Admission Status: ER Accout number: [id number] Admission Date: 03-20-2019 : 1955 Admission Diagnosis: Attending: ROCHELLE ALEMAN Current LOS: 1 Anticipated DC Date: Planned Disposition: Home or Self Care Primary Insurance: [employer] OUT OF STATE Discharge Planning Comments: CM met with patient & to complete initial dc planning assessment. CM educated patient on the CM role and verbal consent given by patient to complete assessment. Patient lives at home with his where he is independent with his care. At discharge patient plans to return home and feels this is a safe discharge. CM discussed availability of home health, rehab services, and medical equipment. Janice ( ) asked about home O2 when DC, I explained to her that we would check prior to DC. Patient denied known discharge needs at this time. CM will continue to follow and will assist as needed with dc plans/needs. Maintenance Truck Driver: Emi Vides DCP- Discharge Planning Updated by [id number]: Emi Vides on 03/20/19 1:[address] attempted to see patient, but he was not in his room. He is in a procedure at this time. DCPIA - Discharge Planning Initial Assessment Updated by [email or web address]: Emi Vides on 03/21/19 1:00 pm * Is the patient Alert and Oriented? Yes * PCP ALMONTE * Pharmacy [facility] * Preadmission Environment Home with Family * ADLs Independent * Equipment None * List name and contact numbers for known caregivers / representatives who currently or will assist patient after discharge: JANICE () [phone] * Community resources currently utilized None * Additional services required to return to the preadmission environment? Yes * Can the patient safely return to the preadmission environment? Yes * Has this patient been hospitalized within the prior 30 days at any hospital? Yes Last DP export: 04/01/19 5:14 p Patient Name: KRISTINE ERNANDEZ Page [id number] at 1853 All edits/amendments must be made on the electronic document DICTATION DATE: 04/01/191851 OPTICAL INSTRUMENT REPAIRER: KARI 04/01/191851 RPT#: [id number] DC DATE: STATUS: ADM IN [facility] [address] [place] [address] END OF REPORT
--- NOTE | 2019-04-01 19:15 | NUR ---
PATIENT ALERT AND ORIENTED WITH AT BEDSIDE. PATIENT HOB ELEVATED TO 15 DEGREE ANGLE. HAS RIGHT UPPER ARM PICC LINE AT THIS TIME. ABDOMINAL DRAIN TO THE LLQ. KEELEY HOSE ON BILATERALLY LOWER EXTREMETIES. REMOVED AT THIS TIME TO INSPECT SKIN INTEGRITY. STATES PAIN IS TOLERABLE AT THIS TIME. WEARING 2 L NC. CALL LIGHT IN REACH. CPOC.
[2019-04-01 20:00] VITALS: BP 138/67
[2019-04-02 04:00] VITALS: BP 124/89
[2019-04-02 06:56] LABS: ANION GAP 12.7 mmol/L (8-16); CALCIUM 8.1 mg/dL (8.5-10.1); CARBON DIOXIDE 24.9 mmol/L (21.0-32.0); CREATININE - SERUM 1.5 mg/dL (0.6-1.3); INR 3.41 (0.85-1.17); POTASSIUM - SERUM 4.6 mmol/L (3.5-5.1); PROTIME 33.7 SECONDS (11.6-15.0)
[2019-04-02 07:51] LABS: HEMOGLOBIN 8.8 g/dL (13.5-17.5); MCH 26.7 pg (26.0-34.0); MCHC 33.8 g/dL (31.0-37.0); MCV 78.8 fL (80.0-100.0); PLATELET COUNT 85 10x3/uL (130-400); RDW 16.5 % (11.5-14.5); WBC 26.6 10x3/uL (4.8-10.8)
[2019-04-02 07:59] VITALS: BP 104/56
[2019-04-02 09:35] LABS: ANISOCYTOSIS OCC; EOSINOPHILS 4 % (0-7); LYMPHOCYTES 7 % (15-50); MONOCYTES 12 % (2-11); NEUTROPHILS 76 % (40-80); PLATELET ESTIMATE DECREASED
[2019-04-02 09:36] LABS: HYPOCHROMASIA OCC; ROULEAUX OCC
[2019-04-02 12:45] VITALS: BP 122/56
--- NOTE | 2019-04-02 18:34 | NUR ---
I have reviewed this patient and I concur with the Shift Assessment completed by the Licensed Practical Nurse today this shift.
--- NOTE | 2019-04-02 19:50 | NUR ---
LYING IN BED. ALERT AND ORIENTED TO SELF, PLACE AND SITUATION. CONFUSED TO TIME. RESP EVEN AND NONLABORED. O2 @ 2LNC. TELEMETRY SHOWS SR WITH RATE OF 91. RATES PAIN IN ABD 4. CAUL DRESSER DILAUDID IN USE ALONG WITH FENTANYL PATCH. BRUISES NOTED TO BUE. GEN EDEMA NOTED. PROCAL @ 75 MLHR, NS @ 10 ML/HR AND ZOFRAN DRIP INFUSING IN RT UPPER ARM PICC. KEELEY HOSE IN USE BILAT. GEN WEAKNESS NOTED. SR ELEVATED X2. CL IN REACH.
[2019-04-02 19:54] VITALS: BP 112/90
--- NOTE | 2019-04-03 00:05 | NUR ---
LYING IN BED. ALERT. USING DILAUDID KEYING MACHINE OPERATOR. URINAL EMPTIED. DENIED NEEDS. CL IN REACH. NO ACUTE DISTRESS.
[2019-04-03 01:12] VITALS: BP 104/49
[2019-04-03 05:01] VITALS: BP 110/45
[2019-04-03 05:27] LABS: INR 3.82 (0.85-1.17); PROTIME 36.8 SECONDS (11.6-15.0)
[2019-04-03 05:31] LABS: ANION GAP 11.7 mmol/L (8-16); CALCIUM 8.5 mg/dL (8.5-10.1); CARBON DIOXIDE 26.1 mmol/L (21.0-32.0); CREATININE - SERUM 1.8 mg/dL (0.6-1.3); POTASSIUM - SERUM 4.8 mmol/L (3.5-5.1)
[2019-04-03 05:50] LABS: BASOPHILS 0.3 % (0-2); EOSINOPHILS 1.7 % (0-7); HEMATOCRIT 25.3 % (42.0-54.0); HEMOGLOBIN 8.5 g/dL (13.5-17.5); IMMATURE GRANULOCYTES 4.2 % (0-5); LYMPHOCYTES 9.4 % (15-50); MCH 26.2 pg (26.0-34.0); MCHC 33.6 g/dL (31.0-37.0); MCV 77.8 fL (80.0-100.0); MEAN PLATELET VOLUME 11.3 fL (7.4-10.4); MONOCYTES 9.8 % (2-11); NEUTROPHILS 74.6 % (40-80); PLATELET COUNT 94 10x3/uL (130-400); RBC 3.25 10x6/uL (4.20-6.10); RDW 16.2 % (11.5-14.5); WBC 27.1 10x3/uL (4.8-10.8)
[2019-04-03 08:38] VITALS: BP 107/32
[2019-04-03 12:46] VITALS: BP 138/78
--- NOTE | 2019-04-03 15:54 | NUR ---
PICC LINE FLUSHED X 2 LUMENS WITH 10CC SALINE WITHOUT RESISTANCE. DRESSING CHANGED PER PROTOCOL. AWAITING ON AMBULANCE FOR DISCHARGE HOME.
[2019-04-03 16:12] VITALS: BP 127/66
--- NOTE | 2019-04-03 16:31 | MORECARE ---
CASE MANAGEMENT DISCHARGE SUMMARY PATIENT: KRISTINE ERNANDEZ UNIT: [id number] ADM DATE: 03/20/19 AGE: 63 : 59 SEX: M ROOM/BED: D.2203 AUTHOR: DEEPALI CALVO PHYSICIAN: REFERRING PHYSICIAN: ROCHELLE CHONG MD DATE OF SERVICE: 04/03/19 Discharge Plan Patient Name: KRISTINE ERNANDEZ Facility: [facility]:[place] : 1955 Planned Disposition: Home or Self Care Anticipated Discharge Date: Discharge Date: Expected LOS: Initial Reviewer: [email or web address] Initial Review Date: 03/20/2019 Generated: 04/03/19 5:30 pm Comments DCP- Discharge Planning Updated by [id number]: Emi Vides on 04/03/19 3:[address] Patient will be discharged home today with [facility] via EMS per Hospice. All DME is set up and delivered to the home. CM will continue to follow and assist with DC planning as needed DCP- Discharge Planning Updated by [email or web address]: Shana Ayala on 04/01/19 5:[address] PATIENT HAS DNR ORDER. LM IS THE NURSE WHO VISITED FROM [facility] FOR REFERRAL DCP- Discharge Planning Updated by [email or web address]: Shana Ayala on 04/01/19 5:[address] LATE ENTRY 1520 DR HIDALGO ASK CM TO SPEAK WITH THE PATIENT AND HIS ABOUT HOSPICE. THEY WOULD LIKE HOSPICE AT HOME. 1600 CM VISITED AT THE BEDSIDE. DISCUSSED CM ROLE AND DISCUSSED THEIR PLAN. ANSWERED THEIR QUESTIONS. CM DISCUSSED HOSPICE PROVIDERS. PROVIDED THE PATIENT'S WITH THE HOSPICE CHOICE LISTING. THEY SELECTED [facility]. POC OBTAINED. TELEPHONE CALL TO [facility]. THE SUBSTATION OPERATOR CHIEF NURSE WAS ON SITE . CM PROVIDED HER WITH H/P, CONSULTS, PROGRESS NOTES, MED REC, ORDERS AND FACE SHEET. FACE SHEET INFORMATION HAD BEEN CONFIRMED. SHE VISITED WITH THE PATIENT AND HIS . SHE DISCUSSED PATIENT'S PRESENT NEEDS, DME NEEDS AND HOSPICE CARE. THE PLAN IS TO TRY TO GAIN BETTER CONTROL FOR PAIN. SHE HAS REQUESTED AN ORDER FOR A FENTANYL PATCH. THAT WILL ALLOW THE TIME REQUIRED FOR THE PATCH TO TAKE EFFECT. THE CHRISTEL WILL FOLLOW IN THE AM. SHE HAS A LIST OF THE EQUIPMENT NEEDED FOR THE HOME. PLAN FOR DISCHARGE ON TUESDAY AFTER FENTANYL HAS TAKEN EFFECT , PAIN IS CONTROLLED AND ARRANGEMENTS HAVE BEEN COMPLETED. PATIENT AND ARE IN AGREEMENT WITH THE PLAN. DCP- Discharge Planning Updated by [id number]: Emi Peewee on 03/21/19 12:[address] Patient Name: KRISTINE ERNANDEZ Admission Status: ER Accout number: [id number] Admission Date: 03-20-2019 : 1955 Admission Diagnosis: Attending: ROCHELLE ALEMAN Current LOS: 1 Anticipated DC Date: Planned Disposition: Home or Self Care Primary Insurance: [email or web address] OUT OF STATE Discharge Planning Comments: CM met with patient & to complete initial dc planning assessment. CM educated patient on the CM role and verbal consent given by patient to complete assessment. Patient lives at home with his where he is independent with his care. At discharge patient plans to return home and feels this is a safe discharge. CM discussed availability of home health, rehab services, and medical equipment. Janice ( ) asked about home O2 when DC, I explained to her that we would check prior to DC. Patient denied known discharge needs at this time. CM will continue to follow and will assist as needed with dc plans/needs. Malt Roaster: Emi Peewee DCP- Discharge Planning Updated by [email or web address]: Emi Vides on 03/20/19 1:[address] attempted to see patient, but he was not in his room. He is in a procedure at this time. DCPIA - Discharge Planning Initial Assessment Updated by [email or web address]: Emi Vides on 03/21/19 1:00 pm * Is the patient Alert and Oriented? Yes * PCP ALMONTE * Pharmacy [facility] * Preadmission Environment Home with Family * ADLs Independent * Equipment None * List name and contact numbers for known caregivers / representatives who currently or will assist patient after discharge: JANICE () [phone] * Community resources currently utilized None * Additional services required to return to the preadmission environment? Yes * Can the patient safely return to the preadmission environment? Yes * Has this patient been hospitalized within the prior 30 days at any hospital? Yes External Providers External Provider: [facility] Next Contact Date: Service Request Date: Service Type: Resolution: Reviewer: Comments: Last DP export: 04/01/19 5:53 p Patient Name: KRISTINE ERNANDEZ Page [phone] at 1631 All edits/amendments must be made on the electronic document DICTATION DATE: 04/03/19 163 HEARING AIDE TECHNICIAN: KARI 04/03/19 163 RPT#: [id number] DC DATE: STATUS: ADM IN [facility] [address] [place] [address] END OF REPORT
--- NOTE | 2019-04-03 17:39 | NUR ---
DISCHARGE PAPERWORK SIGNED, ALL QUESTIONS ANSWERED. ESCORTED OUT BY AMBULANCE.
--- NOTE | 2019-04-04 07:33 | MORECARE ---
CASE MANAGEMENT DISCHARGE SUMMARY PATIENT: KRISTINE ERNANDEZ UNIT: [id number] ADM DATE: 03/20/19 AGE: 63 : 59 SEX: M ROOM/BED: D.2203 AUTHOR: DEEPALI CALVO PHYSICIAN: REFERRING PHYSICIAN: ROCHELLE CHONG MD DATE OF SERVICE: 04/04/19 Discharge Plan Patient Name: KRISTINE ERNANDEZ Facility: [facility]:[place] : 1955 Planned Disposition: Home or Self Care Anticipated Discharge Date: Discharge Date: 04/03/2019 Expected LOS: 0 Initial Reviewer: [email or web address] Initial Review Date: 03/20/2019 Generated: 04/04/19 8:32 am Comments DCP- Discharge Planning Updated by [email or web address]: Emi Vides on 04/03/19 3:[address] Patient will be discharged home today with [facility] via EMS per Hospice. All DME is set up and delivered to the home. CM will continue to follow and assist with DC planning as needed DCP- Discharge Planning Updated by [email or web address]: Shana Ayala on 04/01/19 5:[address] PATIENT HAS DNR ORDER. LM IS THE NURSE WHO VISITED FROM [facility] FOR REFERRAL DCP- Discharge Planning Updated by [email or web address]: Shana Ayala on 04/01/19 5:[address] LATE ENTRY [address] DR [place] ASK CM TO SPEAK WITH THE PATIENT AND HIS ABOUT HOSPICE. THEY WOULD LIKE HOSPICE AT HOME. 1600 CM VISITED AT THE BEDSIDE. DISCUSSED CM ROLE AND DISCUSSED THEIR PLAN. ANSWERED THEIR QUESTIONS. CM DISCUSSED HOSPICE PROVIDERS. PROVIDED THE PATIENT'S WITH THE HOSPICE CHOICE LISTING. THEY SELECTED [facility]. POC OBTAINED. TELEPHONE CALL TO [facility]. THE PIPE AND TANK FABRICATOR NURSE WAS ON SITE . EDY PROVIDED HER WITH H/P, CONSULTS, PROGRESS NOTES, MED RECMD ORDERS AND FACE SHEET. FACE SHEET INFORMATION HAD BEEN CONFIRMED. SHE VISITED WITH THE PATIENT AND HIS . SHE DISCUSSED PATIENT'S PRESENT NEEDS, DME NEEDS AND HOSPICE CARE. THE PLAN IS TO TRY TO GAIN BETTER CONTROL FOR PAIN. SHE HAS REQUESTED AN ORDER FOR A FENTANYL PATCH. THAT WILL ALLOW THE TIME REQUIRED FOR THE PATCH TO TAKE EFFECT. THE CHRISTEL WILL FOLLOW IN THE AM. SHE HAS A LIST OF THE EQUIPMENT NEEDED FOR THE HOME. PLAN FOR DISCHARGE ON TUESDAY AFTER FENTANYL HAS TAKEN EFFECT , PAIN IS CONTROLLED AND ARRANGEMENTS HAVE BEEN COMPLETED. PATIENT AND ARE IN AGREEMENT WITH THE PLAN. DCP- Discharge Planning Updated by [email or web address]: Emi Vides on 03/21/19 12:[address] Patient Name: KRISTINE ERNANDEZ Admission Status: ER Accout number: [id number] Admission Date: 03-20-2019 : 1955 Admission Diagnosis: Attending: ROCHELLE ALEMAN Current LOS: 1 Anticipated DC Date: Planned Disposition: Home or Self Care Primary Insurance: [employer] OUT OF STATE Discharge Planning Comments: CM met with patient & to complete initial dc planning assessment. CM educated patient on the CM role and verbal consent given by patient to complete assessment. Patient lives at home with his where he is independent with his care. At discharge patient plans to return home and feels this is a safe discharge. CM discussed availability of home health, rehab services, and medical equipment. Janice ( ) asked about home O2 when DC, I explained to her that we would check prior to DC. Patient denied known discharge needs at this time. CM will continue to follow and will assist as needed with dc plans/needs. Potato Bucker: Emi Vides DCP- Discharge Planning Updated by [email or web address]: Emi Vides on 03/20/19 1:[address] attempted to see patient, but he was not in his room. He is in a procedure at this time. DCPIA - Discharge Planning Initial Assessment Updated by [email or web address]: Emi Vides on 03/21/19 1:00 pm * Is the patient Alert and Oriented? Yes * PCP [facility] * Pharmacy [facility] * Preadmission Environment Home with Family * ADLs Independent * Equipment None * List name and contact numbers for known caregivers / representatives who currently or will assist patient after discharge: JANICE () [phone] * Community resources currently utilized None * Additional services required to return to the preadmission environment? Yes * Can the patient safely return to the preadmission environment? Yes * Has this patient been hospitalized within the prior 30 days at any hospital? Yes Last DP export: 04/03/19 3:31 p Patient Name: KRISTINE ERNANDEZ Page [id number] at 0733 All edits/amendments must be made on the electronic document DICTATION DATE: 04/04/19731 CYBER ANALYST: KARI 04/04/19731 RPT#: [id number] DC DATE:04/03/19 STATUS: DIS IN [facility] [address] [place] [address] END OF REPORT
== END 2019-04-03 17:40 | disposition home health service (06) | DRG 270 ==
LOC: D.ER 10:32 → D.MS 11:47
PROVIDERS: Family Medicine; Internal Medicine Nephrology; Radiology Diagnostic Radiology; ADMIT Family Medicine Adult Medicine; ATTEND Family Medicine Adult Medicine
PROC: 05C63ZZ Extirpation of Matter from Left Subclavian Vein, Percutaneous Approach (ICD-10-PCS; 2019-03-20)
PROC: 05C43ZZ Extirpation of Matter from Left Innominate Vein, Percutaneous Approach (ICD-10-PCS; 2019-03-20)
PROC: 05CC3ZZ Extirpation of Matter from Left Basilic Vein, Percutaneous Approach (ICD-10-PCS; 2019-03-20)
PROC: 05743DZ Dilation of Left Innominate Vein with Intraluminal Device, Percutaneous Approach (ICD-10-PCS; 2019-03-20)
PROC: 05C83ZZ Extirpation of Matter from Left Axillary Vein, Percutaneous Approach (ICD-10-PCS; principal; 2019-03-20 14:00)
PROC: 05HY33Z Insertion of Infusion Device into Upper Vein, Percutaneous Approach (ICD-10-PCS; 2019-03-26)
DX: I82.622 Acute embolism and thrombosis of deep veins of left upper extremity (principal); I50.33 Acute on chronic diastolic (congestive) heart failure; J18.1 Lobar pneumonia, unspecified organism; E43 Unspecified severe protein-calorie malnutrition; C25.9 Malignant neoplasm of pancreas, unspecified; R18.0 Malignant ascites; E44.0 Moderate protein-calorie malnutrition; N39.0 Urinary tract infection, site not specified; I82.401 Acute embolism and thrombosis of unspecified deep veins of right lower extremity; D64.9 Anemia, unspecified; I10 Essential (primary) hypertension; E78.5 Hyperlipidemia, unspecified; K21.9 Gastro-esophageal reflux disease without esophagitis; Z68.26 Body mass index [BMI] 26.0-26.9, adult; D64.81 Anemia due to antineoplastic chemotherapy; D69.59 Other secondary thrombocytopenia; T45.1X5A Adverse effect of antineoplastic and immunosuppressive drugs, initial encounter